=== PATIENT | male | born 1950 | race Caucasian/White ===

== ENCOUNTER → 2019-11-08 11:05 | Outpatient (CLI) | payer MEDICARE, MEDICAID, SELFPAY ==
[2019-11-08 12:16] LABS: Add Manual Diff / Slide Review NO; Basophils Absolute Auto 100 /uL (0-100); Basophils Percent Auto 0.9 % (0-2); Eosinophils Absolute Auto 400 /uL (0-450); Eosinophils Percent Auto 6.1 % (2-4); Hematocrit 38.9 % (41-53); Hemoglobin 14.1 g/dL (13.5-17.5); Lymphocytes Absolute Auto 900 /uL (1100-4500); Lymphocytes Percent Auto 14.6 % (25-40); Mean Corpuscular HGB Conc 36.4 % (30-36); Mean Corpuscular Hemoglobin 31.8 PG (26-34); Mean Corpuscular Volume 87.5 fL (80-100); Monocytes Absolute Auto 600 /uL (0-900); Monocytes Percent Auto 10.2 % (3-14); Neutrophils Absolute Auto 4100 /uL (1500-7000); Neutrophils Percent Auto 68.2 % (50-75); Platelet Count 161 X10^3/uL (150-400); Red Blood Cell Count 4.45 X10^6/uL (4.5-5.9); Red Cell Distribution Width 12.9 % (11.6-14.8)
[2019-11-08 12:29] LABS: Hemoglobin A1C% w Est Avg Glu 4.9 % (4.0-6.0)
[2019-11-08 12:42] LABS: Alanine Aminotransferase 42 IU/L (<50); Albumin 4.6 g/dL (3.5-5.0); Albumin Globulin Ratio 1.9 (1.0-2.8); Alkaline Phosphatase 45 U/L (38-126); Aspartate Aminotransferase 48 IU/L (17-59); BUN Creatinine Ratio 23.5 (6-22); Bilirubin Total 0.8 mg/dL (0.2-1.3); Blood Urea Nitrogen 20 mg/dL (9-20); Calcium 9.9 mg/dL (8.4-10.2); Carbon Dioxide 28 mmol/L (22-32); Chloride 101 mmol/L (98-107); Cholesterol 126 mg/dL (140-199); Estimated Glomerular Filt Rate > 60.0 mL/min (>60); Globulin 2.4 g/dL (1.7-4.1); Glucose 121 mg/dL (80-110); HDL Cholesterol 45 mg/dL (40-60); HEMOLYSIS < 15 (0-50); LDL Cholesterol Calculated 71 mg/dL (<100); Potassium 4.4 mmol/L (3.4-5.1); Sodium 136 mmol/L (137-145); Triglycerides 48 mg/dL (35-150)
[2019-11-08 12:51] LABS: Vitamin D 25 Hydroxy (D3) 69.6 ng/mL (30.0-100.0)
[2019-11-08 13:14] LABS: Prostate Specific Antigen Scrn 0.149 ng/mL (0.1-4.0)
== END ==
PROVIDERS: Referring Provider Family Medicine; Visit Provider Family Medicine
DX: E11.9 Type 2 diabetes mellitus without complications (principal); E55.9 Vitamin D deficiency, unspecified; E78.5 Hyperlipidemia, unspecified; I10 Essential (primary) hypertension; N28.9 Disorder of kidney and ureter, unspecified; N40.0 Benign prostatic hyperplasia without lower urinary tract symptoms; Z12.5 Encounter for screening for malignant neoplasm of prostate
CPT/HCPCS: 36415; 80053; 80061; 82306; 83036; 85025; G0103

== ENCOUNTER → 2020-05-08 09:57 | Outpatient (CLI) | payer MEDICARE, MEDICAID, SELFPAY ==
[2020-05-08 10:43] LABS: Add Manual Diff / Slide Review NO; Basophils Absolute Auto 0 /uL (0-100); Basophils Percent Auto 0.7 % (0-2); Eosinophils Absolute Auto 300 /uL (0-450); Eosinophils Percent Auto 4.6 % (2-4); Hematocrit 39.9 % (41-53); Lymphocytes Absolute Auto 900 /uL (1100-4500); Lymphocytes Percent Auto 13.9 % (25-40); Mean Corpuscular HGB Conc 35.1 % (30-36); Mean Corpuscular Volume 88.2 fL (80-100); Monocytes Absolute Auto 700 /uL (0-900); Monocytes Percent Auto 11.4 % (3-14); Neutrophils Absolute Auto 4500 /uL (1500-7000); Neutrophils Percent Auto 69.4 % (50-75); Platelet Count 163 X10^3/uL (150-400); Red Blood Cell Count 4.53 X10^6/uL (4.5-5.9); Red Cell Distribution Width 13.3 % (11.6-14.8); White Blood Cell Count 6.5 X10^3/uL (4.5-11.0)
[2020-05-08 11:06] LABS: Hemoglobin A1C% w Est Avg Glu 4.9 % (4.0-6.0)
[2020-05-08 11:08] LABS: Alanine Aminotransferase 55 IU/L (<50); Albumin 4.6 g/dL (3.5-5.0); Albumin Globulin Ratio 1.7 (1.0-2.8); Alkaline Phosphatase 46 U/L (38-126); Aspartate Aminotransferase 57 IU/L (17-59); BUN Creatinine Ratio 26.4 (6-22); Bilirubin Total 0.7 mg/dL (0.2-1.3); Blood Urea Nitrogen 24 mg/dL (9-20); Calcium 9.8 mg/dL (8.4-10.2); Carbon Dioxide 30 mmol/L (22-32); Chloride 99 mmol/L (98-107); Cholesterol 130 mg/dL (140-199); Estimated Glomerular Filt Rate > 60.0 mL/min (>60); Globulin 2.7 g/dL (1.7-4.1); Glucose 130 mg/dL (80-110); HDL Cholesterol 47 mg/dL (40-60); HEMOLYSIS < 15 (0-50); LDL Cholesterol Calculated 73 mg/dL (<100); Potassium 4.6 mmol/L (3.4-5.1); Sodium 136 mmol/L (137-145); Total Protein 7.3 g/dL (6.3-8.2); Triglycerides 48 mg/dL (35-150)
[2020-05-08 11:09] LABS: Creatinine Urine Random 48.7 mg/dL
[2020-05-08 11:16] LABS: Microalbumin Urine Random < 0.6 mg/dL (0-1.6)
[2020-05-08 11:25] LABS: Vitamin D 25 Hydroxy (D3) 56.3 ng/mL (30.0-100.0)
== END ==
PROVIDERS: PCP Family Medicine; Referring Provider Family Medicine; Visit Provider Family Medicine
DX: E55.9 Vitamin D deficiency, unspecified (principal); E11.9 Type 2 diabetes mellitus without complications; E78.5 Hyperlipidemia, unspecified; I10 Essential (primary) hypertension; N28.9 Disorder of kidney and ureter, unspecified
CPT/HCPCS: 36415; 80053; 80061; 82043; 82306; 82570; 83036; 85025

== ENCOUNTER → 2020-06-22 14:32 | Outpatient (CLI) | payer MEDICARE, SELFPAY ==
[2020-06-22] MEDS: COVID-19 VACC #1, MRNA(MOD) 100 MCG/0.5 ML VIAL IM (14:49)
== END ==
PROVIDERS: PCP Family Medicine; Visit Provider Internal Medicine
DX: Z23 Encounter for immunization (principal)
CPT/HCPCS: 0011A; 91301

== ENCOUNTER → 2020-07-20 13:06 | Outpatient (CLI) | payer MEDICARE, SELFPAY ==
[2020-07-20] MEDS: COVID-19 VACC #2, MRNA(MOD) 100 MCG/0.5 ML VIAL IM (13:10)
== END ==
PROVIDERS: PCP Family Medicine; Visit Provider Internal Medicine
DX: Z23 Encounter for immunization (principal)
CPT/HCPCS: 0012A; 91301

== ENCOUNTER → 2021-03-29 14:07 | Outpatient (CLI) | payer MEDICARE, SELFPAY ==
[2021-03-29] MEDS: COVID-19 VACC #3, MRNA(MOD) 50 MCG/0.25 ML VIAL IM (14:12)
== END ==
PROVIDERS: PCP Family Medicine; Visit Provider Internal Medicine
DX: Z23 Encounter for immunization (principal)
CPT/HCPCS: 0013A; 91301

== ENCOUNTER → 2021-05-08 08:59 | Outpatient (CLI) | payer OTHER, SELFPAY ==
[2021-05-08 10:11] LABS: Add Manual Diff / Slide Review NO; Basophils Absolute Auto 0 /uL (0-100); Basophils Percent Auto 0.8 % (0-2); Eosinophils Absolute Auto 200 /uL (0-450); Eosinophils Percent Auto 4.4 % (2-4); Hematocrit 39.3 % (41-53); Hemoglobin 14.1 g/dL (13.5-17.5); Lymphocytes Absolute Auto 1000 /uL (1100-4500); Lymphocytes Percent Auto 18.7 % (25-40); Mean Corpuscular HGB Conc 35.8 % (30-36); Mean Corpuscular Hemoglobin 31.4 PG (26-34); Mean Corpuscular Volume 87.6 fL (80-100); Monocytes Absolute Auto 700 /uL (0-900); Monocytes Percent Auto 12.1 % (3-14); Neutrophils Absolute Auto 3400 /uL (1500-7000); Platelet Count 154 X10^3/uL (150-400); Red Blood Cell Count 4.49 X10^6/uL (4.5-5.9); Red Cell Distribution Width 13.3 % (11.6-14.8); White Blood Cell Count 5.4 X10^3/uL (4.5-11.0)
[2021-05-08 10:35] LABS: Hemoglobin A1C% w Est Avg Glu 4.7 % (4.0-6.0)
[2021-05-08 10:37] LABS: Alanine Aminotransferase 57 IU/L (<50); Albumin 4.5 g/dL (3.5-5.0); Alkaline Phosphatase 41 U/L (38-126); Aspartate Aminotransferase 49 IU/L (17-59); Bilirubin Total 0.7 mg/dL (0.2-1.3); Blood Urea Nitrogen 20 mg/dL (9-20); Carbon Dioxide 28 mmol/L (22-32); Chloride 98 mmol/L (98-107); Cholesterol 129 mg/dL (140-199); Estimated Glomerular Filt Rate > 60.0 mL/min (>60); Globulin 2.2 g/dL (1.7-4.1); Glucose 135 mg/dL (80-110); HDL Cholesterol 63 mg/dL (40-60); HEMOLYSIS < 15 (0-50); LDL Cholesterol Calculated 57 mg/dL (<100); Sodium 132 mmol/L (137-145); Total Protein 6.7 g/dL (6.3-8.2); Triglycerides 47 mg/dL (35-150)
[2021-05-08 11:03] LABS: TSH w/ Reflex to FT4 6.19 uIU/mL (0.47-4.68)
[2021-05-08 11:04] LABS: Prostate Specific Antigen 0.118 ng/mL (0.10-4.00)
[2021-05-08 11:39] LABS: Free T4, Direct Thyroxine 0.89 ng/dL (0.78-2.19)
== END ==
PROVIDERS: PCP Family Medicine; Referring Provider Family Medicine; Visit Provider Family Medicine
DX: E11.9 Type 2 diabetes mellitus without complications (principal); N40.0 Benign prostatic hyperplasia without lower urinary tract symptoms; I10 Essential (primary) hypertension; E78.5 Hyperlipidemia, unspecified; N28.9 Disorder of kidney and ureter, unspecified
CPT/HCPCS: 36415; 80053; 80061; 83036; 84153; 84439; 84443; 85025

== ENCOUNTER → 2021-05-27 13:19 | Outpatient (CLI) | payer MEDICARE, SELFPAY ==
[2021-05-27 15:47] LABS: Free T3, Triiodothyronine Free 3.26 pg/mL (2.77-5.27)
[2021-05-27 16:00] LABS: Thyroid Stimulating Hormone 5.39 uIU/mL (0.47-4.68)
[2021-05-28 23:36] LABS: Anti Thyroglobulin Antibody <1.0 IU/mL (0.0-0.9); Thyroid Peroxidase Antibodies <8 IU/mL (0-34)
== END ==
PROVIDERS: PCP Family Medicine; Referring Provider Family Medicine; Visit Provider Family Medicine
DX: I10 Essential (primary) hypertension (principal); R79.89 Other specified abnormal findings of blood chemistry
CPT/HCPCS: 36415; 84439; 84443; 84481; 86376; 86800

== ENCOUNTER → 2022-01-22 10:55 | Outpatient (CLI) | payer MEDICARE, SELFPAY ==
[2022-01-22 13:23] LABS: COVID19 -Nasal RAPID Negative (Negative)
== END ==
PROVIDERS: PCP Family Medicine; Visit Provider Surgery
DX: Z01.812 Encounter for preprocedural laboratory examination (principal); Z20.822 Contact with and (suspected) exposure to COVID-19
CPT/HCPCS: 87635; C9803

== ENCOUNTER 2022-01-23 06:40 | Day surgery (SDC) | payer MEDICARE, SELFPAY ==
--- NOTE | 2022-01-23 | PATH_ITS ---
[facility] Accession Number: [id number] . 01 Material submitted: . PART A: colon - TRANSVERSE COLON POLYP PART B: rectum - RECTAL POLYP . 01 Clinical history: . COLONOSCOPY . 01 Diagnosis: A. Transverse Colon, Polyp, Biopsy: Inflammatory polyp. Additional levels were examined. Negative for dysplasia and malignancy. . B. Rectum, Polyp, Biopsy: Hyperplastic polyp with features of mucosal prolapse. MRV 01/29/2022 1656 Local . 01 Electronically signed: . Felecia Craft MD, Pathologist NPI- [id number] . 01 Gross description: . Part A: TRANSVERSE COLON POLYP: Received in formalin is 1 fragment(s) of morillo, soft tissue measuring 0.4 x 0.3 x 0.2 cm submitted entirely in 1 cassette(s) Part B: RECTAL POLYP: Received in formalin is 1 fragment(s) of morillo, soft tissue measuring 0.4 x 0.2 x 0.1 cm submitted entirely in 1 cassette(s) /DANIEL 01/23/2022 2327 Local . 01 Pathologist provided ICD-10: K63.5 . 01 CPT . 064099, 256293 Specimen Comment: A courtesy copy of this report has been sent to [phone] Performed at: 01 [facility] [address] [place] [address] [address], [place], [place] [id number] MD Grady Connor MD Phone: [phone]
[2022-01-23 07:17] VITALS: BP 140/77; PULSE 56; RESP 15; TEMP 36; O2SAT 99; BMI 24.5
[2022-01-23] MEDS: LACTATED RINGERS 1,000 ML 42 ML IV (07:35)
--- NOTE | 2022-01-23 07:57 | P.HP_ITS ---
History of Present Illness History of Present Illness Date Patient Seen: 01/23/22 Time Patient Seen: 07:57 Chief complaint: Colonoscopy Narrative: Yordan is a 71-year-old man who had a colonoscopy in 2017 at [facility] that uncovered 2 small polyps. He has no known family history of colon cancer. Patient History Medical History (Updated 01/23/22 @ 07:58 by Claudy Baires MD) BPH (benign prostatic hyperplasia) Breakdown (mechanical) of other cardiac and vascular devices and implants, initial encounter Diabetes mellitus (~2016) Elevated TSH Hemorrhoid Hyperlipidemia Hypertension Kidney disease Measles (~1956) Multiple actinic keratoses Stroke (~2016) Substance abuse (~1967) Vitamin D deficiency Surgical History Anesthesia History of ankle surgery (~1993) History of hernia repair (~2005) S/P LASIK surgery (~1997) Family & Social History Family History Father Hypertension Stroke Mother Kidney disease Brother Kidney disease Social History: household members spouse Tobacco & Substance use: Smoking Status Former smoker alcohol intake former Substance Use Type does not use Meds Home Medications and Allergies Home Medications Medication Instructions Recorded Confirmed Type aspirin 81 mg tablet,delayed 81 mg PO DAILY 11/08/19 01/23/22 History release (Adult Aspirin Regimen) BD Single Use Swab #100 ea 10/09/20 05/31/21 Rx [employer] True Metrix Air Meter #1 ea 10/09/20 05/31/21 Rx lancets 33 gauge (OneTouch Delica #400 ea 07/16/21 Rx Plus Lancet) blood sugar diagnostic (Resale TherapyTouch #120 ea 07/19/21 Rx Verio test strips) blood-glucose meter (Resale TherapyTouch #1 kit 09/19/21 Rx Verio Flex Meter) atorvastatin 40 mg tablet 40 mg PO DAILY #90 tabs 11/05/21 01/23/22 Rx finasteride 5 mg tablet 5 mg PO DAILY #90 tabs 11/05/21 01/23/22 Rx hydrochlorothiazide 12.5 mg capsule 12.5 mg PO DAILY #90 caps 11/05/21 01/23/22 Rx labetalol 200 mg tablet 200 mg PO BID #180 tabs 06/14/22 09/01/22 Rx losartan 100 mg tablet 100 mg PO DAILY #90 tabs 11/05/21 01/23/22 Rx metformin 500 mg tablet,extended 500 mg PO BID #180 tabs 11/05/21 11/05/21 Rx release 24 hr tamsulosin 0.4 mg capsule 0.8 mg PO DAILY #180 caps 11/05/21 01/23/22 Rx terazosin 2 mg capsule 2 mg PO DAILY #90 caps 11/05/21 01/23/22 Rx test strips #400 ea 11/05/21 11/05/21 Rx peg 3350-electrolytes 236 240 ml PO Q10M #4,000 mL 01/01/22 Rx gram-22.74 gram-6.74 gram-5.86 gram solution (Golytely) Allergies Allergy/AdvReac Type Severity Reaction Status Date / Time No Known Drug Allergies Allergy Verified 01/23/22 07:27 Exam Vital Signs (past 8 hours): - 01/23/22 07:17 Temperature 96.8 F L Pulse Rate 56 L Respiratory Rate 15 Blood Pressure 140/77 Pulse Oximetry 99 Oxygen Delivery Method Room Air Oxygen Delivery Method Room Air Const General: No acute distress Resp Effort & Inspection: normal respiratory effort Assessment & Plan Assessment and plan (1) Personal history of colonic polyps: Status: Acute Plan 71-year-old man here for colonoscopy due to history of colon polyps. We reviewed the risks and benefits and he would like to proceed. Time Spent With Patient Critical Care time: I spent a total of [] minutes of critical care time on this patient's care today; this time is exclusive of procedural time.
[2022-01-23] MEDS: MIDAZOLAM 5 MG/5 ML VIAL 8 MG IV (08:08)
[2022-01-23] MEDS: fentaNYL 100 MCG/2 ML INJ 125 MCG IV (08:08)
--- NOTE | 2022-01-23 08:40 | PM.OP.COLON ---
Operative Date/Time/Diagnoses Date of procedure: 01/23/22 Time of procedure: 08:40 Pre-op diagnosis: Colon cancer screening Post-op diagnosis: same Procedure & Clinicians Study performed: Colonoscopy Same procedure as scheduled: Yes Surgeon: Claudy Baires Procedure Notes Procedure in detail: Surgeon: Claudy Baires MD Procedure: The patient was brought to the endoscopy suite, placed in left lateral decubitus position. The patient was connected to monitoring devices. A time-out was performed. Sedation was administered. Once the patient was adequately sedated, a digital rectal exam was performed and was normal. The scope was then inserted and advanced to the cecum where the appendiceal orifice was identified and photographed. The terminal ileum was intubated and no abnormalities noted. The scope was then slowly withdrawn over greater than 6 minutes. The mucosa was thoroughly inspected. There was a 4 mm polyp in the transverse colon removed with a cold forceps. There was extensive pandiverticulosis greatest in the sigmoid colon. There was a 4 mm polyp in the proximal rectum removed with a cold forceps. The scope was retroflexed in the rectum. No abnormality was noted. The scope was straightened and removed. The patient was awakened and brought to recovery. Versed: 8 mg Fentanyl: 125 mcg EBL: 5 mL Findings: 4 mm polyp in the transverse colon, 4 mm polyp in the proximal rectum and extensive pandiverticulosis greatest in the sigmoid colon Scope withdrawal time: 16 Sedation minutes: 34 Post-procedure Recommendations: Will call with biopsy results Disposition: PACU
[2022-01-23 08:45] VITALS: BP 106/59; PULSE 52; RESP 15; TEMP 36; O2SAT 98
[2022-01-23 08:50] VITALS: BP 100/63; PULSE 53; RESP 16; O2SAT 100
[2022-01-23 08:55] VITALS: BP 118/70; PULSE 63; RESP 11; O2SAT 99
--- NOTE | 2022-01-23 08:56 | SUR.PHASEI ---
Discharge instructions reviewed with pt and he verbalized understanding.
[2022-01-23 09:00] VITALS: BP 112/63; PULSE 56; RESP 14; O2SAT 99
[2022-01-23 09:01] VITALS: BP 104/58; PULSE 53; RESP 15; O2SAT 99
== END 2022-01-23 09:10 | disposition home or self-care (01) ==
PROVIDERS: PCP Family Medicine; Referring Provider Surgery; Visit Provider Surgery
PROC: 0DJD8ZZ Inspection of Lower Intestinal Tract, Via Natural or Artificial Opening Endoscopic (ICD-10-PCS; CPT 45378; principal; 2022-01-23 07:45)
DX: Z12.11 Encounter for screening for malignant neoplasm of colon (principal); Z86.010 Personal history of colon polyps; K57.30 Diverticulosis of large intestine without perforation or abscess without bleeding; E11.9 Type 2 diabetes mellitus without complications; N40.0 Benign prostatic hyperplasia without lower urinary tract symptoms; E78.5 Hyperlipidemia, unspecified; I10 Essential (primary) hypertension; Z87.891 Personal history of nicotine dependence; K51.40 Inflammatory polyps of colon without complications; K62.1 Rectal polyp
CPT/HCPCS: 45380; 99152; 99153; J2250; J3010

== ENCOUNTER → 2022-04-30 07:20 | Outpatient (CLI) | payer MEDICARE, SELFPAY ==
[2022-04-30 08:43] LABS: Add Manual Diff / Slide Review NO; Basophils Absolute Auto 0 /uL (0-100); Basophils Percent Auto 0.6 % (0-2); Eosinophils Absolute Auto 300 /uL (0-450); Eosinophils Percent Auto 5.4 % (2-4); Hematocrit 37.8 % (41-53); Hemoglobin 13.7 g/dL (13.5-17.5); Lymphocytes Absolute Auto 1000 /uL (1100-4500); Lymphocytes Percent Auto 18.8 % (25-40); Mean Corpuscular HGB Conc 36.2 % (30-36); Mean Corpuscular Hemoglobin 31.7 PG (26-34); Mean Corpuscular Volume 87.5 fL (80-100); Monocytes Absolute Auto 600 /uL (0-900); Monocytes Percent Auto 11.5 % (3-14); Neutrophils Absolute Auto 3400 /uL (1500-7000); Neutrophils Percent Auto 63.7 % (50-75); Platelet Count 144 X10^3/uL (150-400); Red Blood Cell Count 4.32 X10^6/uL (4.5-5.9); Red Cell Distribution Width 13.2 % (11.6-14.8); White Blood Cell Count 5.3 X10^3/uL (4.5-11.0)
[2022-04-30 20:07] LABS: Free T3, Triiodothyronine Free 2.89 pg/mL (2.77-5.27); Free T4, Direct Thyroxine 0.96 ng/dL (0.78-2.19)
[2022-04-30 20:20] LABS: Thyroid Stimulating Hormone 6.79 uIU/mL (0.47-4.68)
[2022-04-30 23:14] LABS: Alanine Aminotransferase 42 IU/L (<50); Albumin 4.1 g/dL (3.5-5.0); Albumin Globulin Ratio 1.8 (1.0-2.8); Alkaline Phosphatase 56 U/L (38-126); Aspartate Aminotransferase 40 IU/L (17-59); BUN Creatinine Ratio 28.9 (6-22); Bilirubin Total 0.6 mg/dL (0.2-1.3); Blood Urea Nitrogen 24 mg/dL (9-20); Calcium 8.8 mg/dL (8.4-10.2); Carbon Dioxide 27 mmol/L (22-32); Chloride 98 mmol/L (98-107); Cholesterol 120 mg/dL (140-199); Estimated Glomerular Filt Rate > 60 mL/min (>60); Globulin 2.3 g/dL (1.7-4.1); Glucose 120 mg/dL (80-110); HDL Cholesterol 53 mg/dL (40-60); HEMOLYSIS < 15 (0-50); LDL Cholesterol Calculated 57 mg/dL (<100); Sodium 132 mmol/L (137-145); Total Protein 6.4 g/dL (6.3-8.2); Triglycerides 49 mg/dL (35-150)
[2022-04-30 23:43] LABS: Prostate Specific Antigen Scrn 0.105 ng/mL (0.1-4.0)
== END ==
PROVIDERS: PCP Family Medicine; Referring Provider Family Medicine; Visit Provider Family Medicine
DX: E11.9 Type 2 diabetes mellitus without complications (principal); Z12.5 Encounter for screening for malignant neoplasm of prostate; E78.5 Hyperlipidemia, unspecified; I10 Essential (primary) hypertension; N40.1 Benign prostatic hyperplasia with lower urinary tract symptoms; R79.89 Other specified abnormal findings of blood chemistry
CPT/HCPCS: 36415; 80053; 80061; 83036; 84439; 84443; 84481; 85025; G0103

== ENCOUNTER → 2022-07-05 09:10 | Outpatient (CLI) | payer MEDICARE, SELFPAY ==
[2022-07-05 12:29] LABS: TSH w/ Reflex to FT4 3.22 uIU/mL (0.47-4.68)
== END ==
PROVIDERS: PCP Family Medicine; Referring Provider Family Medicine; Visit Provider Family Medicine
DX: E03.9 Hypothyroidism, unspecified (principal); R79.89 Other specified abnormal findings of blood chemistry
CPT/HCPCS: 36415; 84443

== ENCOUNTER → 2022-10-30 06:47 | Outpatient (CLI) | payer MEDICARE, SELFPAY ==
[2022-10-30 08:15] LABS: Add Manual Diff / Slide Review NO; Basophils Absolute Auto 100 /uL (0-100); Basophils Percent Auto 0.9 % (0-2); Eosinophils Absolute Auto 400 /uL (0-450); Eosinophils Percent Auto 6.3 % (2-4); Hematocrit 39.3 % (41-53); Lymphocytes Absolute Auto 1100 /uL (1100-4500); Lymphocytes Percent Auto 18.6 % (25-40); Mean Corpuscular HGB Conc 35.5 % (30-36); Mean Corpuscular Hemoglobin 31.4 PG (26-34); Mean Corpuscular Volume 88.4 fL (80-100); Monocytes Absolute Auto 700 /uL (0-900); Monocytes Percent Auto 13.1 % (3-14); Neutrophils Absolute Auto 3500 /uL (1500-7000); Neutrophils Percent Auto 61.1 % (50-75); Platelet Count 157 X10^3/uL (150-400); Red Blood Cell Count 4.44 X10^6/uL (4.5-5.9); Red Cell Distribution Width 13.1 % (11.6-14.8); White Blood Cell Count 5.7 X10^3/uL (4.5-11.0)
[2022-10-30 08:56] LABS: Alanine Aminotransferase 44 IU/L (<50); Albumin Globulin Ratio 1.7 (1.0-2.8); Alkaline Phosphatase 64 U/L (38-126); Aspartate Aminotransferase 38 IU/L (17-59); BUN Creatinine Ratio 24.4 (6-22); Bilirubin Total 0.5 mg/dL (0.2-1.3); Blood Urea Nitrogen 19 mg/dL (9-20); Calcium 8.7 mg/dL (8.4-10.2); Carbon Dioxide 28 mmol/L (22-32); Chloride 99 mmol/L (98-107); Cholesterol 128 mg/dL (140-199); Estimated Glomerular Filt Rate > 60 mL/min (>60); Globulin 2.3 g/dL (1.7-4.1); Glucose 111 mg/dL (80-110); HDL Cholesterol 53 mg/dL (40-60); HEMOLYSIS < 15 (0-50); LDL Cholesterol Calculated 65 mg/dL (<100); Potassium 4.1 mmol/L (3.4-5.1); Sodium 133 mmol/L (137-145); Total Protein 6.3 g/dL (6.3-8.2); Triglycerides 52 mg/dL (35-150)
[2022-10-30 09:52] LABS: Free T4, Direct Thyroxine 1.06 ng/dL (0.78-2.19)
[2022-10-31 08:44] LABS: x Labcorp Estim. Avg Glu (eAG) 100 mg/dL (.); x Labcorp Hemoglobin A1c 5.1 % (4.8-5.6)
== END ==
PROVIDERS: PCP Family Medicine; Referring Provider Family Medicine; Visit Provider Family Medicine
DX: E03.9 Hypothyroidism, unspecified (principal); E78.5 Hyperlipidemia, unspecified; I10 Essential (primary) hypertension; N28.9 Disorder of kidney and ureter, unspecified; N40.1 Benign prostatic hyperplasia with lower urinary tract symptoms; E11.9 Type 2 diabetes mellitus without complications
CPT/HCPCS: 36415; 80053; 80061; 83036; 84439; 84443; 85025

== ENCOUNTER → 2022-12-16 09:27 | Outpatient (CLI) | payer MEDICARE, SELFPAY ==
[2022-12-16 10:45] LABS: Creatinine Urine Random 39.9 mg/dL
[2022-12-16 10:53] LABS: Microalbumin Urine Random 0.8 mg/dL (0-1.6)
[2022-12-16 11:03] LABS: TSH w/ Reflex to FT4 3.09 uIU/mL (0.47-4.68)
== END ==
PROVIDERS: PCP Family Medicine; Referring Provider Family Medicine; Visit Provider Family Medicine
DX: E03.9 Hypothyroidism, unspecified (principal); E11.9 Type 2 diabetes mellitus without complications; I10 Essential (primary) hypertension
CPT/HCPCS: 36415; 82043; 82570; 84443

== ENCOUNTER → 2023-04-23 06:54 | Outpatient (CLI) | payer MEDICARE, SELFPAY ==
[2023-04-23 08:16] LABS: Add Manual Diff / Slide Review NO; Basophils Absolute Auto 100 /uL (0-100); Basophils Percent Auto 0.8 % (0-2); Eosinophils Absolute Auto 500 /uL (0-450); Hematocrit 36.6 % (41-53); Hemoglobin 13.2 g/dL (13.5-17.5); Lymphocytes Absolute Auto 800 /uL (1100-4500); Lymphocytes Percent Auto 12.3 % (25-40); Mean Corpuscular HGB Conc 35.9 % (30-36); Mean Corpuscular Hemoglobin 31.8 PG (26-34); Mean Corpuscular Volume 88.5 fL (80-100); Monocytes Absolute Auto 1000 /uL (0-900); Monocytes Percent Auto 15.3 % (3-14); Neutrophils Absolute Auto 4400 /uL (1500-7000); Neutrophils Percent Auto 64.6 % (50-75); Platelet Count 174 X10^3/uL (150-400); Red Blood Cell Count 4.14 X10^6/uL (4.5-5.9); Red Cell Distribution Width 13.2 % (11.6-14.8); White Blood Cell Count 6.7 X10^3/uL (4.5-11.0)
[2023-04-23 08:36] LABS: Alanine Aminotransferase 41 IU/L (<50); Albumin Globulin Ratio 1.6 (1.0-2.8); Alkaline Phosphatase 71 U/L (38-126); Aspartate Aminotransferase 44 IU/L (17-59); BUN Creatinine Ratio 23.5 (6-22); Bilirubin Total 0.9 mg/dL (0.2-1.3); Blood Urea Nitrogen 19 mg/dL (9-20); Calcium 9.4 mg/dL (8.4-10.2); Carbon Dioxide 24 mmol/L (22-32); Chloride 100 mmol/L (98-107); Cholesterol 111 mg/dL (140-199); Estimated Glomerular Filt Rate > 60 mL/min (>60); Globulin 2.5 g/dL (1.7-4.1); Glucose 115 mg/dL (80-110); HDL Cholesterol 47 mg/dL (40-60); HEMOLYSIS < 15 (0-50); LDL Cholesterol Calculated 50 mg/dL (<100); Potassium 4.3 mmol/L (3.4-5.1); Sodium 132 mmol/L (137-145); Total Protein 6.5 g/dL (6.3-8.2); Triglycerides 71 mg/dL (35-150)
[2023-04-23 09:03] LABS: Prostate Specific Antigen Scrn 0.124 ng/mL (0.1-4.0)
== END ==
PROVIDERS: PCP Family Medicine; Referring Provider Family Medicine; Visit Provider Family Medicine
DX: Z12.5 Encounter for screening for malignant neoplasm of prostate (principal); E03.9 Hypothyroidism, unspecified; E11.9 Type 2 diabetes mellitus without complications; L30.9 Dermatitis, unspecified; I10 Essential (primary) hypertension; N40.0 Benign prostatic hyperplasia without lower urinary tract symptoms; E78.5 Hyperlipidemia, unspecified
CPT/HCPCS: 36415; 80053; 80061; 83036; 85025; G0103

== ENCOUNTER → 2023-05-12 07:45 | Outpatient (CLI) | payer MEDICARE, SELFPAY ==
--- NOTE | 2023-05-12 07:46 | DI.US.S_ITS ---
PROCEDURE: US ABD AORTA ANEURYSM SCREEN INDICATIONS: screening TECHNIQUE: Real time scanning was performed of the aorta and iliac arteries, with image documentation. COMPARISON: None. FINDINGS: Aorta: Proximal aorta is not visualized due to bowel gas. Mid-aorta measures 2.0 cm. Distal aortic diameter is 1.3 cm. Iliac arteries: Right common iliac artery measures 1.1 cm. Left common iliac artery measures 1.0 cm. IMPRESSION: No ectasia or aneurysm of the abdominal aorta or iliac arteries where visualized. Dictated by: Annette Mccurdy M.D. on 05/12/2023 at 8:52 Approved by: Annette Mccurdy M.D. on 05/12/2023 at 8:53
== END ==
PROVIDERS: PCP Family Medicine; Referring Provider Family Medicine; Visit Provider Family Medicine
DX: Z13.6 Encounter for screening for cardiovascular disorders (principal); Z87.891 Personal history of nicotine dependence; Z86.73 Personal history of transient ischemic attack (TIA), and cerebral infarction without residual deficits
CPT/HCPCS: 76706

== ENCOUNTER → 2023-05-31 11:06 | Outpatient (CLI) | payer OTHER, SELFPAY ==
--- NOTE | 2023-05-31 11:08 | DI.RAD.S_ITS ---
PROCEDURE: XR CHEST 2V INDICATIONS: Shortness of breath TECHNIQUE: 2 views of the chest were acquired. COMPARISON: None. FINDINGS: Surgical changes and devices: None. Lungs and pleura: Low lung volumes are noted. This causes a crowded appearance to the lung markings and limits evaluation. Generalized interstitial prominence can be seen. No pneumothorax or large pleural effusion can be seen. Mediastinum: Mediastinal contours are normal. Heart size is mildly enlarged. Bones and chest wall: No suspicious bony abnormalities. Age-appropriate bony degenerative changes are seen. Soft tissues appear unremarkable. IMPRESSION: Low lung volumes with abnormal interstitial prominence. Please consider pulmonary edema versus atypical infection (including COVID pneumonia). Dictated by: Obi Ochoa M.D. on 05/31/2023 at 10:54 Approved by: Obi Ochoa M.D. on 05/31/2023 at 10:55
== END ==
PROVIDERS: PCP Family Medicine; Referring Provider Registered Nurse; Visit Provider Registered Nurse
DX: R06.02 Shortness of breath (principal)
CPT/HCPCS: 71046

== ENCOUNTER → 2023-06-11 12:05 | Outpatient (CLI) | payer OTHER, SELFPAY ==
[2023-06-11 15:04] LABS: Influenza A - CEPHEID Flu A NEGATIVE (NEGATIVE); Influenza B - CEPHEID Flu B NEGATIVE (NEGATIVE); Respiratory Syncytial Virus Negative (Negative)
[2023-06-11 15:10] LABS: COVID-19 CEPHEID 4-PLEX PCR Negative (Negative)
== END ==
PROVIDERS: PCP Family Medicine; Visit Provider Physician Assistant
DX: J06.9 Acute upper respiratory infection, unspecified (principal); R05.1 Acute cough
CPT/HCPCS: 0241U

== ENCOUNTER → 2023-06-11 12:44 | Outpatient (CLI) | payer OTHER, SELFPAY ==
--- NOTE | 2023-06-11 12:47 | DI.RAD.S_ITS ---
PROCEDURE: XR CHEST 2V INDICATIONS: cough x 1 mo TECHNIQUE: 2 views of the chest were acquired. COMPARISON: [facility], CR, XR CHEST 2V, 05/31/2023, 11:21. FINDINGS: Surgical changes and devices: None. Lungs and pleura: Stable diffuse airspace opacities. Mediastinum: Mediastinal contours are normal. Heart size is normal. Bones and chest wall: No suspicious bony abnormalities. Soft tissues appear unremarkable. IMPRESSION: Stable diffuse airspace opacities, raising concern for severe interstitial lung disease, less likely organizing pneumonia or severe pulmonary edema. Consider high-resolution chest CT for further characterization. Dictated by: Eddie Jean Baptiste M.D. on 06/11/2023 at 13:15 Approved by: Eddie Jean Baptiste M.D. on 06/11/2023 at 13:16
== END ==
PROVIDERS: PCP Family Medicine; Referring Provider Physician Assistant; Visit Provider Physician Assistant
DX: J06.9 Acute upper respiratory infection, unspecified (principal); R05.1 Acute cough
CPT/HCPCS: 0241U; 71046

== ENCOUNTER → 2023-06-17 07:51 | Outpatient (CLI) | payer OTHER, SELFPAY ==
[2023-06-17 08:23] LABS: Estimated Glomerular Filt Rate > 60 mL/min (>60)
--- NOTE | 2023-06-17 08:32 | DI.CT.S_ITS ---
PROCEDURE: CT CHEST W CON INDICATIONS: chronic cough TECHNIQUE: After the administration of intravenous contrast, 5 mm thick sections acquired from the pulmonary apices to the posterior costophrenic angles. 1 mm axial lung, 5 mm thick coronal and sagittal reformats and 7 mm axial MIP were acquired. For radiation dose reduction, the following was used: automated exposure control, adjustment of mA and/or kV according to patient size. COMPARISON: None. FINDINGS: Image quality: Diagnostic. Lower Neck: No enlarged lymph nodes. Thyroid: No thyroid nodules which require sonographic follow up, per consensus guidelines. Axillae: No enlarged lymph nodes. Chest Wall: Unremarkable. Bones: Unremarkable. Lungs and Pleura: No pneumothorax or pleural effusions. Diffuse reticulation, with basilar predominance. There is honeycombing present and traction bronchiectasis. No ground-glass. Heart: Heart size is enlarged. No pericardial effusion. Thoracic Vessels: Dilated main pulmonary artery Mediastinum and Sammi: Prominent mediastinal lymph nodes, presumably reactive. Esophagus: Diffuse esophageal wall thickening. No hiatal hernia. Upper Abdomen: Visualized upper abdomen solid organs and bowel loops appear normal. IMPRESSION: Severe interstitial lung disease, CT pattern consistent with UIP. Recommend pulmonology referral. Dilated pulmonary artery, indicating pulmonary hypertension. Reactive mediastinal lymph nodes also present. Diffuse esophageal wall thickening, suggestive of esophagitis. Correlate with symptoms. Dictated by: Eddie Jean Baptiste M.D. on 06/17/2023 at 9:47 Approved by: Eddie Jean Baptiste M.D. on 06/17/2023 at 9:50
== END ==
PROVIDERS: PCP Family Medicine; Referring Provider Physician Assistant; Visit Provider Physician Assistant
DX: J84.9 Interstitial pulmonary disease, unspecified (principal); I28.8 Other diseases of pulmonary vessels; J06.9 Acute upper respiratory infection, unspecified; N40.0 Benign prostatic hyperplasia without lower urinary tract symptoms; R59.0 Localized enlarged lymph nodes
CPT/HCPCS: 36415; 71260; 82565; Q9967

== ENCOUNTER → 2023-07-08 09:02 | Outpatient (CLI) | payer OTHER, SELFPAY ==
[2023-07-17 19:42] LABS: CCP Antibodies IgG/IgA 5 units (0-19)
[2023-07-22 17:36] LABS: ANA Screen, IFA Negative (.)
== END ==
PROVIDERS: PCP Family Medicine; Referring Provider Internal Medicine Critical Care Medicine; Visit Provider Internal Medicine Critical Care Medicine
DX: J84.9 Interstitial pulmonary disease, unspecified (principal)
CPT/HCPCS: 36415; 86038; 86200

== ENCOUNTER → 2023-07-16 07:37 | Outpatient (CLI) | payer OTHER, SELFPAY | PROVIDERS: PCP Family Medicine; Referring Provider Internal Medicine Critical Care Medicine; Visit Provider Internal Medicine Critical Care Medicine | DX: R06.09 Other forms of dyspnea (principal); Z87.891 Personal history of nicotine dependence; J98.8 Other specified respiratory disorders | CPT/HCPCS: 94060; 94726; 94729 ==

== ENCOUNTER → 2023-07-27 06:54 | Outpatient (CLI) | payer OTHER, SELFPAY ==
--- NOTE | 2023-07-27 06:55 | DI.ECHO.S_ITS ---
[facility]---------+ [facility] +---------+ : : [address] : : : : [id number] : : : : Phone: [phone]+ Echocardiogram Report + + :Name: TONIO MANCINI Study Date: 07/27/2023 Height: 66 in : :[facility] ReadingLocation: Weight: 145 lb : : Gender: Male BSA: 1.7 m2 : :: 1950 Age: 73 yrs BP: 170/85 mmHg: :Reason For Study: ILD, EVAL FOR PULMONARY HYPERTENSION : :Ordering Physician: MARIANNE, : :JARON Performed By: Chio Echeverria : :Referring: JARON LOPES : + + Interpretation Summary Normal both left and right ventricle size and function. The ejection fraction is 60-65%. Mild tricuspid regurgitation. Right ventricular systolic pressure is estimated to be 47 mmHg plus the clinically estimated CVP which cannot be estimated on this exam. Procedure: A two-dimensional transthoracic echocardiogram with color flow and Doppler was performed. The study quality was technically adequate. There is no prior echocardiogram noted for this patient. The heart rate ranged between 45-70 bpm during the study. Left Ventricle: The left ventricle is normal in size and wall thickness. The ejection fraction is estimated to be 60-65%. There are no focal wall motion abnormalities. Diastolic parameters suggest probable normal left ventricular diastolic function and normal filling pressures. Right Ventricle: The right ventricle is normal in size and function. Atria: The left atrial size is normal. Right atrial size is normal. There is no Doppler evidence for an interatrial shunt. Mitral Valve: The mitral valve leaflets appear borderline thickened, but open well. There is borderline mitral valve prolapse. There is trace mitral regurgitation. Aortic Valve: The aortic valve is trileaflet. The aortic valve opens well. There is no aortic valve stenosis. There is trace aortic regurgitation. Tricuspid Valve: The tricuspid valve is normal in structure and function. There is mild tricuspid regurgitation. Right ventricular systolic pressure is estimated to be 47 mmHg plus the clinically estimated CVP which cannot be estimated on this exam. Pulmonic Valve: The pulmonic valve leaflets are thin and pliable; valve motion is normal. There is mild pulmonic regurgitation. Great Vessels: The aortic root is normal size. The dimensions of the ascending aorta are normal. The inferior vena cava was not well visualized. Pericardium/ Pleura There is no pericardial effusion. There is no pleural effusion. MMode/2D Measurements & Calculations LVIDd: 4.3 cm LVOT diam: 2.1 cm LVIDs: 2.9 cm Ao root diam: 3.4 cm FS: 34.3 % asc Aorta Diam: 3.8 cm EPSS: 0.80 cm Ao Arch Diam (Prox Trans): 3.5 cm IVSd: 0.94 cm LVPWd: 0.87 cm LV mejia. diameter/BSA (cm/m^2): 2.5 LV sys. diameter/BSA (cm/m^2): 1.6 LA A2 area: 21.6 cm2 RA long axis: 5.3 cm LA A4 area: 16.3 cm2 RA area: 13.4 cm2 LA length (vol): 5.4 cm RA vol: 28.8 ml LA vol: 55.2 ml RA : 16.5 ml/m2 LA vol index: 31.6 ml/m2 RVD1 (basal): 3.9 cm RVD2 (mid): 3.5 cm TAPSE: 2.4 cm Doppler Measurements & Calculations Ao V2 max: 145.3 cm/sec LVOT Max Gerardo: 106.2 cm/sec Ao V2 mean: 95.9 cm/sec LV V1 max P.5 mmHg Ao max P.4 mmHg LV V1 VTI: 25.3 cm Ao mean P.1 mmHg MELY(I,D): 2.5 cm2 Ao V2 VTI: 34.7 cm MELY(V,D): 2.5 cm2 sev ratio: 0.73 MELY indexed to BSA (cm^2/m^2): 1.4 MV E max gerardo: 79.3 cm/sec TR max gerardo: 344.2 cm/sec MV A max gerardo: 80.5 cm/sec TR max P.4 mmHg MV E/A: 0.98 PA V2 max: 117.0 cm/sec Med Peak E' Gerardo: 8.3 cm/sec PA V2 mean: 71.0 cm/sec E/E' med: 9.6 PA mean P.3 mmHg Lat Peak E' Gerardo: 9.8 cm/sec PA pr(Accel): 49.9 mmHg E/E' lat: 8.1 E/e' average: 8.8 MV dec time: 0.23 sec SV(LVOT): 87.6 ml Electronically signed by: Arian Liu on Reading Physician:07/27/2023 12:52 PM
== END ==
PROVIDERS: PCP Family Medicine; Referring Provider Internal Medicine Critical Care Medicine; Visit Provider Internal Medicine Critical Care Medicine
DX: I37.1 Nonrheumatic pulmonary valve insufficiency (principal); I07.1 Rheumatic tricuspid insufficiency; R06.09 Other forms of dyspnea
CPT/HCPCS: 93306

== ENCOUNTER → 2023-10-20 06:43 | Outpatient (CLI) | payer MEDICARE, SELFPAY ==
[2023-10-20 08:08] LABS: Add Manual Diff / Slide Review NO; Basophils Absolute Auto 0 /uL (0-100); Basophils Percent Auto 0.8 % (0-2); Eosinophils Absolute Auto 300 /uL (0-450); Eosinophils Percent Auto 4.8 % (2-4); Hematocrit 39.7 % (41-53); Hemoglobin 14.1 g/dL (13.5-17.5); Lymphocytes Absolute Auto 1000 /uL (1100-4500); Lymphocytes Percent Auto 16.6 % (25-40); Mean Corpuscular HGB Conc 35.7 % (30-36); Mean Corpuscular Hemoglobin 31.4 PG (26-34); Mean Corpuscular Volume 87.9 fL (80-100); Monocytes Absolute Auto 800 /uL (0-900); Monocytes Percent Auto 13.7 % (3-14); Neutrophils Absolute Auto 3900 /uL (1500-7000); Neutrophils Percent Auto 64.1 % (50-75); Platelet Count 159 X10^3/uL (150-400); Red Blood Cell Count 4.51 X10^6/uL (4.5-5.9); Red Cell Distribution Width 13.3 % (11.6-14.8); White Blood Cell Count 6.1 X10^3/uL (4.5-11.0)
[2023-10-20 08:37] LABS: Alanine Aminotransferase 36 IU/L (<50); Albumin Globulin Ratio 1.8 (1.0-2.8); Alkaline Phosphatase 62 U/L (38-126); Aspartate Aminotransferase 38 IU/L (17-59); BUN Creatinine Ratio 24.3 (6-22); Bilirubin Total 0.7 mg/dL (0.2-1.3); Blood Urea Nitrogen 17 mg/dL (9-20); Calcium 8.6 mg/dL (8.4-10.2); Carbon Dioxide 28 mmol/L (22-32); Chloride 103 mmol/L (98-107); Cholesterol 121 mg/dL (140-199); Estimated Glomerular Filt Rate > 60 mL/min (>60); Globulin 2.2 g/dL (1.7-4.1); Glucose 102 mg/dL (80-110); HDL Cholesterol 62 mg/dL (40-60); HEMOLYSIS < 15 (0-50); LDL Cholesterol Calculated 50 mg/dL (<100); Potassium 4.8 mmol/L (3.4-5.1); Sodium 134 mmol/L (137-145); Total Protein 6.2 g/dL (6.3-8.2); Triglycerides 43 mg/dL (35-150)
[2023-10-20 09:04] LABS: Prostate Specific Antigen Scrn 0.112 ng/mL (0.1-4.0)
== END ==
PROVIDERS: PCP Family Medicine; Referring Provider Family Medicine; Visit Provider Family Medicine
DX: Z12.5 Encounter for screening for malignant neoplasm of prostate (principal); E03.9 Hypothyroidism, unspecified; E11.9 Type 2 diabetes mellitus without complications; E78.5 Hyperlipidemia, unspecified; I10 Essential (primary) hypertension
CPT/HCPCS: 36415; 80053; 80061; 83036; 85025; G0103

== ENCOUNTER → 2024-04-05 08:43 | Outpatient (CLI) | payer MEDICARE, SELFPAY | PROVIDERS: PCP Family Medicine; Referring Provider Internal Medicine Pulmonary Disease; Visit Provider Internal Medicine Pulmonary Disease | DX: J84.112 Idiopathic pulmonary fibrosis (principal); Z87.891 Personal history of nicotine dependence; R94.2 Abnormal results of pulmonary function studies | CPT/HCPCS: 94010; 94729 ==

== ENCOUNTER → 2024-04-26 07:51 | Outpatient (CLI) | payer MEDICARE, SELFPAY ==
[2024-04-26 08:44] LABS: Add Manual Diff / Slide Review NO; Basophils Absolute Auto 0 /uL (0-100); Basophils Percent Auto 0.5 % (0-2); Eosinophils Absolute Auto 300 /uL (0-450); Eosinophils Percent Auto 5.3 % (2-4); Hematocrit 40.7 % (41-53); Hemoglobin 14.4 g/dL (13.5-17.5); Lymphocytes Absolute Auto 900 /uL (1100-4500); Lymphocytes Percent Auto 19.6 % (25-40); Mean Corpuscular HGB Conc 35.4 % (30-36); Mean Corpuscular Hemoglobin 31.7 PG (26-34); Mean Corpuscular Volume 89.5 fL (80-100); Monocytes Absolute Auto 600 /uL (0-900); Neutrophils Absolute Auto 3000 /uL (1500-7000); Neutrophils Percent Auto 61.6 % (50-75); Platelet Count 155 X10^3/uL (150-400); Red Blood Cell Count 4.55 X10^6/uL (4.5-5.9); Red Cell Distribution Width 13.1 % (11.6-14.8); White Blood Cell Count 4.8 X10^3/uL (4.5-11.0)
[2024-04-26 10:13] LABS: Alanine Aminotransferase 37 IU/L (<50); Albumin 4.2 g/dL (3.5-5.0); Albumin Globulin Ratio 1.8 (1.0-2.8); Alkaline Phosphatase 60 U/L (38-126); Aspartate Aminotransferase 40 IU/L (17-59); BUN Creatinine Ratio 23.2 (6-22); Bilirubin Total 0.8 mg/dL (0.2-1.3); Blood Urea Nitrogen 19 mg/dL (9-20); Carbon Dioxide 27 mmol/L (22-32); Chloride 99 mmol/L (98-107); Estimated Glomerular Filt Rate > 60 mL/min (>60); Globulin 2.4 g/dL (1.7-4.1); Glucose 106 mg/dL (80-110); HEMOLYSIS < 15 (0-50); Potassium 4.2 mmol/L (3.4-5.1); Sodium 131 mmol/L (137-145); Total Protein 6.6 g/dL (6.3-8.2)
[2024-04-26 10:17] LABS: Creatinine Urine Random 31.71 mg/dL
[2024-04-26 10:49] LABS: TSH w/ Reflex to FT4 5.05 uIU/mL (0.47-4.68)
[2024-04-26 11:51] LABS: Free T4, Direct Thyroxine 0.95 ng/dL (0.78-2.19)
== END ==
PROVIDERS: PCP Family Medicine; Referring Provider Family Medicine; Visit Provider Family Medicine
DX: E11.9 Type 2 diabetes mellitus without complications (principal); I10 Essential (primary) hypertension; E03.9 Hypothyroidism, unspecified
CPT/HCPCS: 36415; 80053; 82043; 82570; 83036; 84439; 84443; 85025

== ENCOUNTER → 2024-06-04 09:28 | Outpatient (CLI) | payer MEDICARE, SELFPAY ==
[2024-06-04 10:33] LABS: Cholesterol 127 mg/dL (140-199); HDL Cholesterol 60 mg/dL (40-60); LDL Cholesterol Calculated 53 mg/dL (<100); Triglycerides 69 mg/dL (35-150)
[2024-06-04 11:04] LABS: TSH w/ Reflex to FT4 2.75 uIU/mL (0.47-4.68)
== END ==
PROVIDERS: PCP Family Medicine; Referring Provider Family Medicine; Visit Provider Family Medicine
DX: E03.9 Hypothyroidism, unspecified (principal); E78.5 Hyperlipidemia, unspecified; E11.9 Type 2 diabetes mellitus without complications
CPT/HCPCS: 36415; 80061; 84443

== ENCOUNTER 2024-08-08 13:39 | Observation (INO) | payer MEDICARE, SELFPAY ==
[2024-08-08] VITALS (33 sets, daily range): BP systolic 133–205; BP diastolic 66–104; PULSE 43–72; RESP 13–33; TEMP 36.3–36.5; O2SAT 89–100; BMI 22.6
--- NOTE | 2024-08-08 13:55 | DI.RAD.S_ITS ---
PROCEDURE: XR CHEST 1V INDICATIONS: Shortness of breath TECHNIQUE: One view of the chest was acquired. COMPARISON: [facility], CR, XR CHEST 2V, 06/11/2023, 12:54. [facility], CR, XR CHEST 2V, 05/31/2023, 11:21. FINDINGS: Surgical changes and devices: None. Lungs and pleura: Diffuse interstitial lung disease. No consolidation. Mediastinum: Mediastinal contours appear normal. Heart size is enlarged. Bones and chest wall: No suspicious bony lesions. Overlying soft tissues appear unremarkable. IMPRESSION: Diffuse interstitial lung disease without consolidation. Acute exacerbation of interstitial lung disease is not excluded. Dictated by: Eddie Jean Baptiste M.D. on 08/08/2024 at 14:32 Approved by: Eddie Jean Baptiste M.D. on 08/08/2024 at 14:32
--- NOTE | 2024-08-08 13:55 | EKG_ITS ---
[facility] [address], [place] [address] Test Date: 2024-08-08 Pat Name: Yordan Diez Department: [facility] Room: Gender: Male [employer]: ROMERO : 1950 Requested By: Order Number: [id number] Reading MD: Ja Guevara MD Measurements Intervals [place] Rate: 57 P: 42 [place]: 224 QRS: -16 QRSD: 94 T: 28 QT: 444 QTc: 432 Interpretive Statements Sinus bradycardia with 1st degree AV block Minimal voltage criteria for LVH, may be normal variant ( Josias product ) Electronically Signed On 08-09-2024 6:46:35 PDT by Ja Guevara MD
[2024-08-08 14:40] LABS: Influenza A - CEPHEID Flu A NEGATIVE (NEGATIVE); Influenza B - CEPHEID Flu B NEGATIVE (NEGATIVE); Respiratory Syncytial Virus Negative (Negative)
[2024-08-08 14:41] LABS: COVID-19 CEPHEID 4-PLEX PCR Negative (Negative)
[2024-08-08 14:43] LABS: Add Manual Diff / Slide Review NO; Basophils Absolute Auto 100 /uL (0-100); Basophils Percent Auto 1.4 % (0-2); Eosinophils Absolute Auto 500 /uL (0-450); Eosinophils Percent Auto 5.2 % (2-4); Hematocrit 39.7 % (41-53); Hemoglobin 14.1 g/dL (13.5-17.5); Lymphocytes Absolute Auto 800 /uL (1100-4500); Lymphocytes Percent Auto 9.4 % (25-40); Mean Corpuscular HGB Conc 35.5 % (30-36); Mean Corpuscular Hemoglobin 31.1 PG (26-34); Mean Corpuscular Volume 87.7 fL (80-100); Monocytes Absolute Auto 900 /uL (0-900); Monocytes Percent Auto 10.3 % (3-14); Neutrophils Absolute Auto 6300 /uL (1500-7000); Neutrophils Percent Auto 73.7 % (50-75); Platelet Count 207 X10^3/uL (150-400); Red Blood Cell Count 4.53 X10^6/uL (4.5-5.9); Red Cell Distribution Width 13.4 % (11.6-14.8); White Blood Cell Count 8.6 X10^3/uL (4.5-11.0)
[2024-08-08 14:54] LABS: INR 1.2 (0.9-1.3); Prothrombin Time 14.1 SECONDS (9.4-12.5)
[2024-08-08 14:56] LABS: Alanine Aminotransferase 27 IU/L (<50); Albumin 4.9 g/dL (3.5-5.0); Albumin Globulin Ratio 1.4 (1.0-2.8); Alkaline Phosphatase 37 U/L (38-126); Aspartate Aminotransferase 62 IU/L (17-59); BUN Creatinine Ratio 32.3 (6-22); Blood Urea Nitrogen 20 mg/dL (9-20); Calcium 9.1 mg/dL (8.4-10.2); Carbon Dioxide 18 mmol/L (22-32); Chloride 95 mmol/L (98-107); Estimated Glomerular Filt Rate > 60 mL/min (>60); Globulin 3.6 g/dL (1.7-4.1); Glucose 104 mg/dL (80-110); Potassium 5.3 mmol/L (3.4-5.1); Sodium 126 mmol/L (137-145); Total Protein 8.5 g/dL (6.3-8.2)
[2024-08-08 14:57] LABS: HEMOLYSIS 272 (0-50)
[2024-08-08 14:58] LABS: Lactate (Lactic Acid) 1.2 mmol/L (0.7-2.1)
[2024-08-08 15:09] LABS: NT-proBNP (BNP-Adult 18+) 580 pg/mL (<125); Troponin I 0.025 ng/mL (0.01-0.034)
--- NOTE | 2024-08-08 15:54 | PC.NURSE ---
Pt ambulated from wheelchair to gurney. Placed on monitors. Pt is SOB. Pulse ox show 71% on RA. Placed on 15L via NC. Called RT to bedside. Pt reports recent flight 2 weeks ago prior to SOB onset and a productive cough. He also reports hx of pulmonary fibrosis with not needing oxygen. Not sure if on thinners. Does not think so. Pt oxygen climbs to 100% on 15L via nonrebreather. Provider Oliverio made aware. RT Asaf at bedside.
--- NOTE | 2024-08-08 16:04 | PC.NURSE ---
Pt reports diagnosis of pulmonary fibrosis. No need for oxygen prior.
--- NOTE | 2024-08-08 18:21 | ED.SOB ---
HPI - SOB/Dyspnea General Chief Complaint: Shortness of Breath/Dyspnea Stated Complaint: blood oxy reading 90-92 sent by PCP Time Seen by Provider: 08/08/24 18:05 Source: patient Mode of arrival: Ambulatory Limitations: no limitations History of Present Illness HPI Narrative: Patient is a 74 year old male with history of idiopathic pulmonary fibrosis, hypertension hyperlipidemia diabetes [id number], CVA, presenting today with increasing shortness of breath. He reports that his pulmonary fibrosis has been relatively stable. He and his flew to [place] about 6 weeks ago since he got back he has had increasing shortness of breath with exertion. No fever or chills has a cough but it has not productive. He does not feel like he has an infection. He denies any sort of orthopnea no lower extremity edema. He is followed by primary care sounds like they are adjusting his medication for bradycardia. Cut his labetalol and half 100 mg twice a day and increase terazosin 2 mg b.i.d. he was noted to be hypertensive here in the emergency department. He was not oxygen dependent but now requiring 2 L of oxygen. His home O2 was 88% Related Data Home Medications Medication Instructions Recorded Confirmed aspirin 81 mg tablet,delayed 81 mg PO DAILY 11/08/19 08/08/24 release (Adult Aspirin Regimen) tamsulosin 0.4 mg capsule 0.8 mg PO BID 08/08/24 08/08/24 terazosin 2 mg capsule 2 mg PO BID 08/08/24 08/08/24 Previous Rx's Medication Instructions Recorded [employer] True Metrix Air Meter #1 ea 10/09/20 blood-glucose meter (OneTouch #1 kit 09/19/21 Verio Flex Meter) test strips #400 ea 12/28/23 atorvastatin 20 mg tablet 20 mg PO BEDTIME #90 tabs 06/10/24 blood sugar diagnostic (Oneuch #360 ea 06/10/24 Verio test strips) finasteride 5 mg tablet 5 mg PO DAILY #90 tabs 06/10/24 hydrochlorothiazide 25 mg tablet 25 mg PO DAILY #90 tabs 06/10/24 lancets 33 gauge (OneTouch Delcourtney #400 ea 06/10/24 Plus Lancet) levothyroxine 50 mcg tablet 50 mcg PO DAILY #90 tabs 06/10/24 losartan 100 mg tablet 100 mg PO DAILY #90 tabs 06/10/24 metformin 500 mg tablet,extended 500 mg PO BID #180 tabs 06/17/24 release 24 hr tadalafil 5 mg tablet (Cialis) 5 mg PO DAILY #30 tabs 07/08/24 labetalol 200 mg tablet 200 mg PO BID #180 tabs 07/25/24 Allergies Allergy/AdvReac Type Severity Reaction Status Date / Time No Known Drug Allergies Allergy Verified 07/12/24 09:23 Patient History Medical History Cold feeling Bradycardia Hx of arterial ischemic stroke Pulmonary hypertension Secondhand smoke exposure History of tobacco use BPH w urinary obs/LUTS Nocturia more than twice per night Idiopathic pulmonary fibrosis Diabetic cataract of both eyes Eczema of right hand Hypothyroidism (acquired) Elevated TSH Multiple actinic keratoses Breakdown (mechanical) of other cardiac and vascular devices and implants, initial encounter Vitamin D deficiency Hyperlipidemia Substance abuse (~1967) Stroke (~2016) Measles (~1956) Kidney disease BPH (benign prostatic hyperplasia) Hemorrhoid Diabetes mellitus (~2016) Hypertension Surgical History Anesthesia History of hernia repair (~2005) S/P LASIK surgery (~1997) History of ankle surgery (~1993) Family History Father Hypertension Stroke Mother Kidney disease Brother Kidney disease Social History marital status: number of children: 0 household members: spouse occupational status: previously employed Smoking Status: Former smoker Tobacco: How many years used: 18 alcohol intake: former substance use type: does not use caffeine: Yes Type(s) of exercise: walking frequency: 5-6 times per week duration: 15-30 minutes/day Smoking Status: Former smoker Exam Initial Vital Signs Initial Vital Signs: Vital Signs Temperature 97.7 F 08/08/24 13:47 Pulse Rate 58 L 08/08/24 13:47 Respiratory Rate 20 08/08/24 13:47 Blood Pressure 171/84 H 08/08/24 13:47 Pulse Oximetry 89 L 08/08/24 13:47 Oxygen Delivery Method Room Air 08/08/24 13:47 GENERAL: Alert very well-appearing 74-year-old male HEENT: Head atraumatic,EOMI, pupils reactive, face symmetric, moist mucous membranes CARDIOVASCULAR: Regular rate and rhythm without murmurs, rubs or gallops. RESPIRATORY: Crackles greater than left no wheezing or rales no conversational dyspnea ABDOMEN: Soft, nontender. Normoactive bowel sounds all 4 quadrants. No guarding or rebound. EXTREMITIES: Normal range of motion, no clubbing or edema. Neurovascularly intact NEUROLOGICAL: Alert and oriented x4.Normal gait and speech. Cranial nerves II through XII grossly intact. SKIN: Warm, dry, no laceration, no petechiae, no rashes or lesions. Course Orders Ordered: ED Orders 08/08/24 18:33 CT angio chest PE protocol Stat Acetaminophen (Acetaminophen 325 Mg Tablet) 650 mg PO Q6H PRN PRN Reason: Fever/Mild Pain (1-3) Aspirin (Aspirin Ec 81 Mg Tablet) 81 mg PO DAILY [facility] Atorvastatin Calcium (Atorvastatin 20 Mg Tablet) 20 mg PO BEDTIME [facility] Enoxaparin Sodium (Enoxaparin 40 Mg/0.4 Ml Syringe) 40 mg SUBCUT DAILY [facility] Finasteride (Finasteride 5 Mg Tablet) 5 mg PO DAILY [facility] Levothyroxine Sodium (Levothyroxine 50 Mcg Tablet) 50 mcg PO DAILY [facility] Losartan Potassium (Losartan 50 Mg Tablet) 100 mg PO DAILY [facility] Metformin HCl (Metformin Xr 500 Mg Tablet) 500 mg PO BID [facility] Naloxone HCl (Naloxone 0.4 Mg/Ml Vial) 0.2 mg IV Q2MIN PRN PRN Reason: Opiate Reversal Tamsulosin HCl (Tamsulosin 0.4 Mg Capsule) 0.8 mg PO DAILY [facility] Vital Signs Vital signs: Vital Signs - 8 hr 08/08/24 17:30 08/08/24 17:30 08/08/24 17:45 Pulse Rate 46 L Respiratory Rate 15 Blood Pressure 175/82 H 182/90 H Pulse Oximetry 97 Oxygen Delivery Method Oxygen Flow Rate 08/08/24 17:45 08/08/24 18:00 08/08/24 18:00 Pulse Rate 43 L 45 L Respiratory Rate 23 21 Blood Pressure 176/89 H Pulse Oximetry 98 99 Oxygen Delivery Method Oxygen Flow Rate 08/08/24 18:15 08/08/24 18:15 08/08/24 18:30 Pulse Rate 45 L Respiratory Rate 15 Blood Pressure 187/90 H 194/104 H Pulse Oximetry 99 Oxygen Delivery Method Oxygen Flow Rate 08/08/24 18:30 08/08/24 18:45 08/08/24 18:45 Pulse Rate 60 48 L Respiratory Rate 27 H 27 H Blood Pressure 177/87 H Pulse Oximetry 97 98 Oxygen Delivery Method Oxygen Flow Rate 08/08/24 19:08 08/08/24 19:30 08/08/24 19:48 Pulse Rate 56 L 48 L Respiratory Rate 24 33 H Blood Pressure 184/85 H Pulse Oximetry 94 96 Oxygen Delivery Method Oxygen Flow Rate 08/08/24 19:48 08/08/24 20:00 08/08/24 20:00 Pulse Rate 45 L 44 L Respiratory Rate 13 14 Blood Pressure 170/81 H Pulse Oximetry 98 96 Oxygen Delivery Method Nasal Cannula Oxygen Flow Rate 2 08/08/24 20:15 08/08/24 20:15 08/08/24 20:30 Pulse Rate 44 L Respiratory Rate 19 Blood Pressure 168/83 H 163/87 H Pulse Oximetry 97 Oxygen Delivery Method Oxygen Flow Rate 08/08/24 20:30 08/08/24 20:50 08/08/24 20:50 Pulse Rate 45 L 48 L Respiratory Rate 23 16 Blood Pressure 205/82 H Pulse Oximetry 95 95 Oxygen Delivery Method Room Air Oxygen Flow Rate 08/08/24 21:00 08/08/24 21:01 08/08/24 21:01 Pulse Rate 47 L 49 L Respiratory Rate 19 26 H Blood Pressure 163/82 H Pulse Oximetry 97 97 Oxygen Delivery Method Nasal Cannula Nasal Cannula Oxygen Flow Rate 2 2 08/08/24 21:15 08/08/24 21:15 08/08/24 21:30 Pulse Rate 50 L 48 L Respiratory Rate 20 17 Blood Pressure 142/71 H Pulse Oximetry 96 96 Oxygen Delivery Method Nasal Cannula Nasal Cannula Oxygen Flow Rate 2 2 08/08/24 21:31 08/08/24 21:31 08/08/24 21:45 Pulse Rate 47 L Respiratory Rate 17 Blood Pressure 170/73 H 139/66 Pulse Oximetry 96 Oxygen Delivery Method Nasal Cannula Oxygen Flow Rate 08/08/24 21:45 08/08/24 22:00 08/08/24 22:00 Pulse Rate 45 L 46 L Respiratory Rate 16 20 Blood Pressure 133/67 Pulse Oximetry 94 96 Oxygen Delivery Method Nasal Cannula Nasal Cannula Oxygen Flow Rate 2 2 MDM - SOB/Dyspnea Lab Data 08/08/24 14:25 08/08/24 13:55 Labs: Lab Results 08/08/24 08/08/24 08/08/24 Range/Units 13:54 13:55 14:25 WBC 8.6 (4.5-11.0) X10^3/uL RBC 4.53 (4.5-5.9) X10^6/uL Hgb 14.1 (13.5-17.5) g/dL Hct 39.7 L (41-53) % MCV 87.7 (80-100) fL MCH 31.1 (26-34) PG MCHC 35.5 (30-36) % RDW 13.4 (11.6-14.8) % Plt Count 207 (150-400) X10^3/uL Neut % (Auto) 73.7 (50-75) % Lymph % (Auto) 9.4 L (25-40) % Morris % (Auto) 10.3 (3-14) % Eos % (Auto) 5.2 H (2-4) % Baso % (Auto) 1.4 (0-2) % Neut # (Auto) 6300 (8618-6449) /uL Lymph # (Auto) 800 L (1924-4124) /uL Morris # (Auto) 900 (0-900) /uL Eos # (Auto) 500 H (0-450) /uL Baso # (Auto) 100 (0-100) /uL PT 14.1 H (9.4-12.5) SECONDS INR 1.2 (0.9-1.3) Sodium 126 L (137-145) mmol/L Potassium 5.3 H (3.4-5.1) mmol/L Chloride 95 L (98-107) mmol/L Carbon Dioxide 18 L (22-32) mmol/L BUN 20 (9-20) mg/dL Creatinine 0.62 L (0.66-1.25) mg/dL Estimated GFR > 60 (>60) mL/min BUN/Creatinine Ratio 32.3 H (6-22) Glucose 104 (80-110) mg/dL Lactate 1.2 (0.7-2.1) mmol/L Calcium 9.1 (8.4-10.2) mg/dL Total Bilirubin 2.0 H (0.2-1.3) mg/dL AST 62 H (17-59) IU/L ALT 27 (<50) IU/L Alkaline Phosphatase 37 L (38-126) U/L Troponin I 0.025 (0.01-0.034) ng/mL NT-Pro-B Natriuret Pep 580 H (<125) pg/mL Total Protein 8.5 H (6.3-8.2) g/dL Albumin 4.9 (3.5-5.0) g/dL Globulin 3.6 (1.7-4.1) g/dL Albumin/Globulin Ratio 1.4 (1.0-2.8) SARS-CoV-2 (PCR) Negative (Negative) Influenza A (RT-PCR) Flu a negative (NEGATIVE) Influenza B (RT-PCR) Flu b negative (NEGATIVE) RSV (PCR) Negative (Negative) Imaging Data Chest x-ray: Radiologist's Impression: PROCEDURE: XR CHEST 1V INDICATIONS: Shortness of breath TECHNIQUE: One view of the chest was acquired. COMPARISON: [facility], , XR CHEST 2V, 06/11/2023, 12:54. [facility], , XR CHEST 2V, 05/31/2023, 11:21. FINDINGS: Surgical changes and devices: None. Lungs and pleura: Diffuse interstitial lung disease. No consolidation. Mediastinum: Mediastinal contours appear normal. Heart size is enlarged. Bones and chest wall: No suspicious bony lesions. Overlying soft tissues appear unremarkable. IMPRESSION: Diffuse interstitial lung disease without consolidation. Acute exacerbation of interstitial lung disease is not excluded. Dictated by: Eddie Jean Baptiste M.D. on 08/08/2024 at 14:32 CT scan - chest: Radiologist's Impression: PROCEDURE: CT ANGIO CHEST PE PROTOCOL INDICATIONS: hypoxia pulmonary fibrosis TECHNIQUE: After the administration of intravenous contrast, 2 mm thick sections acquired from the pulmonary apices to the posterior costophrenic angles. 3-dimensional maximum intensity projection (MIP) coronal and sagittal reformats were then acquired through the thorax. For radiation dose reduction, the following was used: automated exposure control, adjustment of mA and/or kV according to patient size. COMPARISON: None. FINDINGS: Image quality: Diagnostic. Pulmonary arteries: Pulmonary arteries are normal in size, and demonstrate no intraluminal filling defects to suggest central pulmonary embolism. Lower Neck: No enlarged lymph nodes. Thyroid: Diminutive thyroid gland, not well evaluated. Axillae: No enlarged lymph nodes. Chest Wall: Unremarkable. Bones: Multilevel disc and endplate degeneration in the thoracic spine. Remote right-sided rib fracture. Lungs and Pleura: Central airways are patent. Mild diffuse cylindrical and minimally varicose bronchiectasis bilaterally, predominantly in the lower lobes. Moderate bilateral, predominantly lower lobe honeycombing. Patchy subpleural opacity posterolateral right mid lung. Diffuse peripheral reticulation. No acute ground-glass opacities or pleural effusions. Heart: The heart is enlarged. No significant pericardial effusion. Mild aortic valvular calcification. Thoracic Vessels: Normal caliber thoracic aorta and great vessels. Mediastinum and Sammi: Mediastinal and bilateral confluent hilar adenopathy, mildly progressed. Esophagus: No wall thickening. No hiatal hernia. Upper Abdomen: Visualized upper abdomen solid organs and bowel loops appear normal. IMPRESSION: No pulmonary embolus. Stable findings of pulmonary fibrosis and right lung subpleural opacity without acute superimposed lung disease visible. Stable cardiomegaly. Dictated by: Michelle Garcia M.D. on 08/08/2024 at 19:47 ECG Data Attestation: I personally reviewed and interpreted this ECG as follows: Prior ECG tracings: available for review Interpretation: Normal sinus rhythm rate 57 DE interval 224 QRS 94 QTC 432 T-wave inversion noted in lead 3 MDM Narrative Medical decision making narrative: [facility] CC: Shortness of breath Complicating co-morbidities: Interstitial pulmonary fibrosis, CVA, hypertension Data collected from: Patient and Medical records reviewed: PCP note from August 05 reviewed Echocardiogram 07/27/2023 EF 60 65% Differential considered: Infection pulmonary embolism congestive heart failure acute coronary syndrome pulmonary fibrosis Exam documented above, pertinent findings include: Alert well-appearing 74-year-old male he does have crackles right greater than left no wheezing no peripheral edema abdomen soft nontender Lab Test results independently reviewed as above. Pertinent findings: WBC 8.6 hemoglobin 14.1 hematocrit 30 9.7 Sodium 126 potassium 5.3 chloride 95 bicarb 18 BUN 20 creatinine 0.62 Lactate 1.2 Bilirubin 2.0 AST 62 ALT 27 alk-phos 37 Troponin 0.025, BNP 580 Independently reviewed EKG as above Imaging studies independently reviewed: Chest x-ray diffuse interstitial lung disease no consolidation CT angio no pulmonary embolism stable pulmonary fibrosis able cardiomegaly Consultations: Dr. Carrillo, accepts patient Treatments: Solu-Medrol oxygen Re-evaluations: Ambulation trial patient went down to 77% he was requiring 1-2 L at rest, Discussion: Patient 74-year-old male history of pulmonary fibrosis presenting today with increasing shortness of breath. It has been a progressive decline over the last 6 weeks. He has not previously needed any medication or oxygen. Blood work has been reviewed He does some minor electrolyte abnormalities sodium slightly low 126 potassium elevated 5.3 bilirubin liver enzymes are also elevated has a BNP of 580 no significant evidence of fluid overload. He has absolutely no right upper quadrant pain, no nausea or vomiting nothing to suggest a cholelithiasis cholecystitis. He truly overall appears well nontoxic while at rest. However with ambulation O2 drops to 77%. At rest he was needing 1-2 L. unable to get home O2 at night. Discharge Plan Departure Patient Disposition: Admitted as Observation Clinical Impression: Pulmonary fibrosis, Hypoxia, Acute hyponatremia Admit Date/Time: 08/08/24 22:08 Admit Provider: Miguel Cash
--- NOTE | 2024-08-08 18:33 | DI.CT.S_ITS ---
PROCEDURE: CT ANGIO CHEST PE PROTOCOL INDICATIONS: hypoxia pulmonary fibrosis TECHNIQUE: After the administration of intravenous contrast, 2 mm thick sections acquired from the pulmonary apices to the posterior costophrenic angles. 3-dimensional maximum intensity projection (MIP) coronal and sagittal reformats were then acquired through the thorax. For radiation dose reduction, the following was used: automated exposure control, adjustment of mA and/or kV according to patient size. COMPARISON: None. FINDINGS: Image quality: Diagnostic. Pulmonary arteries: Pulmonary arteries are normal in size, and demonstrate no intraluminal filling defects to suggest central pulmonary embolism. Lower Neck: No enlarged lymph nodes. Thyroid: Diminutive thyroid gland, not well evaluated. Axillae: No enlarged lymph nodes. Chest Wall: Unremarkable. Bones: Multilevel disc and endplate degeneration in the thoracic spine. Remote right-sided rib fracture. Lungs and Pleura: Central airways are patent. Mild diffuse cylindrical and minimally varicose bronchiectasis bilaterally, predominantly in the lower lobes. Moderate bilateral, predominantly lower lobe honeycombing. Patchy subpleural opacity posterolateral right mid lung. Diffuse peripheral reticulation. No acute ground-glass opacities or pleural effusions. Heart: The heart is enlarged. No significant pericardial effusion. Mild aortic valvular calcification. Thoracic Vessels: Normal caliber thoracic aorta and great vessels. Mediastinum and Sammi: Mediastinal and bilateral confluent hilar adenopathy, mildly progressed. Esophagus: No wall thickening. No hiatal hernia. Upper Abdomen: Visualized upper abdomen solid organs and bowel loops appear normal. IMPRESSION: No pulmonary embolus. Stable findings of pulmonary fibrosis and right lung subpleural opacity without acute superimposed lung disease visible. Stable cardiomegaly. Dictated by: Michelle Garcia M.D. on 08/08/2024 at 19:47 Approved by: Michelle Garcia M.D. on 08/08/2024 at 19:53
--- NOTE | 2024-08-08 20:51 | PC.NURSE ---
Ambulated pt on RA. Sats dropped to 77%. Returned to [facility]. Placed on 2L NC and sats improved to 92%. Dr Kong notified.
--- NOTE | 2024-08-08 22:21 | P.HP_ITS ---
History of Present Illness History of Present Illness Date Patient Seen: 08/08/24 Chief complaint: blood oxy reading 90-92 sent by PCP Narrative: Patient is a 74 year old male with history of idiopathic pulmonary fibrosis, hypertension hyperlipidemia diabetes [id number]-zoxgrvfqw, CVA, presenting today with increasing shortness of breath. He reports that his pulmonary fibrosis has been relatively stable. He and his flew to [place] about 6 weeks ago since he got back he has had increasing shortness of breath with exertion. No fever or chills has a cough but it has not productive. He does not feel like he has an infection. He denies any sort of orthopnea no lower extremity edema. He is followed by primary care sounds like they are adjusting his medication for bradycardia. Cut his labetalol and half 100 mg twice a day and increase terazosin 2 mg b.i.d. he was noted to be hypertensive here in the emergency department. He was not oxygen dependent but now requiring 2 L of oxygen. 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 On presentation hypoxic, w/o evidence of pneumonia. Placed in observation. Additional history of hypertension hyperlipidemia diabetes [id number], CVA. [facility] Medical History Cold feeling Bradycardia Hx of arterial ischemic stroke Pulmonary hypertension Secondhand smoke exposure History of tobacco use BPH w urinary obs/LUTS Nocturia more than twice per night Idiopathic pulmonary fibrosis Diabetic cataract of both eyes Eczema of right hand Hypothyroidism (acquired) Elevated TSH Multiple actinic keratoses Breakdown (mechanical) of other cardiac and vascular devices and implants, initial encounter Vitamin D deficiency Hyperlipidemia Substance abuse (~1967) Stroke (~2016) Measles (~1956) Kidney disease BPH (benign prostatic hyperplasia) Hemorrhoid Diabetes mellitus (~2016) Hypertension Surgical History Anesthesia History of hernia repair (~2005) S/P LASIK surgery (~1997) History of ankle surgery (~1993) Family History Father Hypertension Stroke Mother Kidney disease Brother Kidney disease Social History marital status: number of children: 0 household members: spouse occupational status: previously employed Smoking Status: Former smoker Tobacco: How many years used: 18 alcohol intake: former substance use type: does not use caffeine: Yes Type(s) of exercise: walking frequency: 5-6 times per week duration: 15-30 minutes/day Meds Home Medications and Allergies Home Medications Medication Instructions Recorded Confirmed Type aspirin 81 mg tablet,delayed 81 mg PO DAILY 11/08/19 08/08/24 History release (Adult Aspirin Regimen) [employer] True Metrix Air Meter #1 ea 10/09/20 07/12/24 Rx blood-glucose meter (OneTouch #1 kit 09/19/21 07/12/24 Rx Verio Flex Meter) test strips #400 ea 12/28/23 07/12/24 Rx atorvastatin 20 mg tablet 20 mg PO BEDTIME #90 tabs 06/10/24 08/08/24 Rx blood sugar diagnostic (OneTouch #360 ea 06/10/24 07/12/24 Rx Verio test strips) finasteride 5 mg tablet 5 mg PO DAILY #90 tabs 06/10/24 08/08/24 Rx hydrochlorothiazide 25 mg tablet 25 mg PO DAILY #90 tabs 06/10/24 08/08/24 Rx lancets 33 gauge (OneTouch Delica #400 ea 06/10/24 07/12/24 Rx Plus Lancet) levothyroxine 50 mcg tablet 50 mcg PO DAILY #90 tabs 06/10/24 08/08/24 Rx losartan 100 mg tablet 100 mg PO DAILY #90 tabs 06/10/24 08/08/24 Rx metformin 500 mg tablet,extended 500 mg PO BID #180 tabs 06/17/24 08/08/24 Rx release 24 hr tadalafil 5 mg tablet (Cialis) 5 mg PO DAILY #30 tabs 07/08/24 08/08/24 Rx labetalol 200 mg tablet 200 mg PO BID #180 tabs 07/25/24 08/08/24 Rx tamsulosin 0.4 mg capsule 0.8 mg PO BID 08/08/24 08/08/24 History terazosin 2 mg capsule 2 mg PO BID 08/08/24 08/08/24 History Allergies Allergy/AdvReac Type Severity Reaction Status Date / Time No Known Drug Allergies Allergy Verified 07/12/24 09:23 Review of Systems Review of Systems Narrative: General - w/o fever or chills RS - progressive dyspnea, dry cough, not wheezy CVS - w/o chest pain Exam Vital Signs (past 8 hours): - 08/08/24 15:48 08/08/24 15:52 08/08/24 15:52 Pulse Rate 72 51 L Respiratory Rate 32 H 23 Blood Pressure 200/96 H Pulse Oximetry 100 Oxygen Delivery Method Non -Rebreather Oxygen Flow Rate 15 08/08/24 16:00 08/08/24 16:00 08/08/24 16:05 Pulse Rate 48 L Respiratory Rate 16 22 Blood Pressure 172/81 H Pulse Oximetry 100 99 Oxygen Delivery Method Nasal Cannula Oxygen Flow Rate 2 08/08/24 16:15 08/08/24 16:15 08/08/24 16:30 Pulse Rate 49 L Respiratory Rate 21 Blood Pressure 167/81 H 166/81 H Pulse Oximetry 99 Oxygen Delivery Method Nasal Cannula Oxygen Flow Rate 2 08/08/24 16:30 08/08/24 16:45 08/08/24 16:45 Pulse Rate 49 L 47 L Respiratory Rate 20 13 Blood Pressure 153/81 H Pulse Oximetry 99 100 Oxygen Delivery Method Oxygen Flow Rate 08/08/24 17:00 08/08/24 17:01 08/08/24 17:01 Pulse Rate 47 L 46 L Respiratory Rate 15 25 H Blood Pressure 167/82 H Pulse Oximetry 98 98 Oxygen Delivery Method Oxygen Flow Rate 08/08/24 17:15 08/08/24 17:15 08/08/24 17:30 Pulse Rate 46 L Respiratory Rate 19 Blood Pressure 175/81 H 175/82 H Pulse Oximetry 98 Oxygen Delivery Method Oxygen Flow Rate 08/08/24 17:30 08/08/24 17:45 08/08/24 17:45 Pulse Rate 46 L 43 L Respiratory Rate 15 23 Blood Pressure 182/90 H Pulse Oximetry 97 98 Oxygen Delivery Method Oxygen Flow Rate 08/08/24 18:00 08/08/24 18:00 08/08/24 18:15 Pulse Rate 45 L Respiratory Rate 21 Blood Pressure 176/89 H 187/90 H Pulse Oximetry 99 Oxygen Delivery Method Oxygen Flow Rate 08/08/24 18:15 08/08/24 18:30 08/08/24 18:30 Pulse Rate 45 L 60 Respiratory Rate 15 27 H Blood Pressure 194/104 H Pulse Oximetry 99 97 Oxygen Delivery Method Oxygen Flow Rate 08/08/24 18:45 08/08/24 18:45 08/08/24 19:08 Pulse Rate 48 L 56 L Respiratory Rate 27 H 24 Blood Pressure 177/87 H Pulse Oximetry 98 94 Oxygen Delivery Method Oxygen Flow Rate 08/08/24 19:30 08/08/24 19:48 08/08/24 19:48 Pulse Rate 48 L 45 L Respiratory Rate 33 H 13 Blood Pressure 184/85 H Pulse Oximetry 96 98 Oxygen Delivery Method Nasal Cannula Oxygen Flow Rate 2 08/08/24 20:00 08/08/24 20:00 08/08/24 20:15 Pulse Rate 44 L Respiratory Rate 14 Blood Pressure 170/81 H 168/83 H Pulse Oximetry 96 Oxygen Delivery Method Oxygen Flow Rate 08/08/24 20:15 08/08/24 20:30 08/08/24 20:30 Pulse Rate 44 L 45 L Respiratory Rate 19 23 Blood Pressure 163/87 H Pulse Oximetry 97 95 Oxygen Delivery Method Room Air Oxygen Flow Rate 08/08/24 20:50 08/08/24 20:50 08/08/24 21:00 Pulse Rate 48 L 47 L Respiratory Rate 16 19 Blood Pressure 205/82 H Pulse Oximetry 95 97 Oxygen Delivery Method Nasal Cannula Oxygen Flow Rate 2 08/08/24 21:01 08/08/24 21:01 08/08/24 21:15 Pulse Rate 49 L Respiratory Rate 26 H Blood Pressure 163/82 H 142/71 H Pulse Oximetry 97 Oxygen Delivery Method Nasal Cannula Oxygen Flow Rate 2 08/08/24 21:15 Pulse Rate 50 L Respiratory Rate 20 Blood Pressure Pulse Oximetry 96 Oxygen Delivery Method Nasal Cannula Oxygen Flow Rate 2 Oxygen Delivery Method Nasal Cannula Oxygen Flow Rate 2 Narrative Exam Narrative: General - in no distress RS - b/l crackles CVS - bradycardic Skin - not cyanotic Neuro - lucid Objective ECG Impression: Sinus bradycardia 57, 1st degree AV block, LVH Labs 08/09/24 05:40 08/09/24 05:40 Labs: Laboratory Results - last 24 hr 08/08/24 08/08/24 08/08/24 13:54 13:55 14:25 WBC 8.6 RBC 4.53 Hgb 14.1 Hct 39.7 L MCV 87.7 MCH 31.1 MCHC 35.5 RDW 13.4 Plt Count 207 Neut % (Auto) 73.7 Lymph % (Auto) 9.4 L [place] % (Auto) 10.3 Eos % (Auto) 5.2 H Baso % (Auto) 1.4 Neut # (Auto) 6300 Lymph # (Auto) 800 L [place] # (Auto) 900 Eos # (Auto) 500 H Baso # (Auto) 100 PT 14.1 H INR 1.2 Sodium 126 L Potassium 5.3 H Chloride 95 L Carbon Dioxide 18 L BUN 20 Creatinine 0.62 L Estimated GFR > 60 BUN/Creatinine Ratio 32.3 H Glucose 104 Lactate 1.2 Calcium 9.1 Total Bilirubin 2.0 H AST 62 H ALT 27 Alkaline Phosphatase 37 L Troponin I 0.025 NT-Pro-B Natriuret Pep 580 H Total Protein 8.5 H Albumin 4.9 Globulin 3.6 Albumin/Globulin Ratio 1.4 SARS-CoV-2 (PCR) Negative Influenza A (RT-PCR) Flu a negative Influenza B (RT-PCR) Flu b negative RSV (PCR) Negative Assessment & Plan Assessment and plan (1) Idiopathic pulmonary fibrosis: Status: Acute (2) Acute hypoxic respiratory failure: Status: Acute (3) Acute hyponatremia: Status: Acute (4) BPH w urinary obs/LUTS: Status: Acute (5) Hypertension: Qualifiers: Hypertension type: essential hypertension Qualified Code(s): I10 - Essential (primary) hypertension Status: Chronic Assessment & Plan narrative: ILD - idiopathic - needs home oxygen - consider prednisone with PPI, consult with pulmonology - has follow up with waterproofer helper in [place] in 2-3 weeks BPH - Flomax, finasteride DM - metformin, CCD, SS HTN - Losartan Hx of CVA - statin, ASA Hypothyroidism - levothyroxine DVT prophylaxis - Lovenox Time-Based Coding :: [TOTAL MINUTES] spent with patient and on the chart (including review of chart, obtaining history, exam, reviewing outside data, placing orders, documenting exam and treatment plan, and counseling patient) on [DATE].
--- NOTE | 2024-08-08 22:38 | PC.NURSE ---
Report given to Manju DOOLEYpatient care assistant [phone]
[2024-08-09] VITALS (7 sets, daily range): BP systolic 133–159; BP diastolic 72–88; PULSE 48–65; RESP 16–20; TEMP 36.3–36.9; O2SAT 91–97
--- NOTE | 2024-08-09 00:45 | PC.NURSE ---
Assumed care of patient from ED, pt self transferred from [facility] to bed. 2L O2 NC, 95%; cont SpO2 monitoring. RAC PIV flushed/patent. Pt A&Ox4, hypertensive, bradycardic, pleasant and cooperative. Educated pt communication consultant light, urinal, and calling before getting up to restroom. Pt denies chest pain, cough, N/V, headache, or any other pain. Pt resting comfortably, call light within reach, plan of care continues.
[2024-08-09 06:09] LABS: Add Manual Diff / Slide Review NO; Basophils Absolute Auto 100 /uL (0-100); Basophils Percent Auto 2.2 % (0-2); Eosinophils Absolute Auto 500 /uL (0-450); Eosinophils Percent Auto 7.3 % (2-4); Hematocrit 39.2 % (41-53); Hemoglobin 13.9 g/dL (13.5-17.5); Lymphocytes Absolute Auto 900 /uL (1100-4500); Lymphocytes Percent Auto 12.6 % (25-40); Mean Corpuscular HGB Conc 35.5 % (30-36); Mean Corpuscular Hemoglobin 31.3 PG (26-34); Mean Corpuscular Volume 88.2 fL (80-100); Monocytes Absolute Auto 800 /uL (0-900); Monocytes Percent Auto 12.2 % (3-14); Neutrophils Absolute Auto 4600 /uL (1500-7000); Neutrophils Percent Auto 65.7 % (50-75); Platelet Count 186 X10^3/uL (150-400); Red Blood Cell Count 4.45 X10^6/uL (4.5-5.9); Red Cell Distribution Width 13.4 % (11.6-14.8); White Blood Cell Count 6.9 X10^3/uL (4.5-11.0)
[2024-08-09 06:21] LABS: BUN Creatinine Ratio 20.5 (6-22); Blood Urea Nitrogen 15 mg/dL (9-20); Calcium 8.8 mg/dL (8.4-10.2); Carbon Dioxide 24 mmol/L (22-32); Chloride 97 mmol/L (98-107); Estimated Glomerular Filt Rate > 60 mL/min (>60); Glucose 93 mg/dL (80-110); HEMOLYSIS < 15 (0-50); Potassium 3.7 mmol/L (3.4-5.1); Sodium 128 mmol/L (137-145)
--- NOTE | 2024-08-09 07:54 | P.PN_ITS ---
Subjective Subjective Interval history: Chief complaint: Increasing shortness of breath over 1-2 months in a patient with idiopathic pulmonary fibrosis Blood oxy reading 90-92 sent by PCP History of present illness: Patient is a 74 year old male with history of idiopathic pulmonary fibrosis, hypertension hyperlipidemia diabetes [id number]-rggedvphh, CVA, presenting today with increasing shortness of breath. He reports that his pulmonary fibrosis has been relatively stable. He and his flew to [place] about 6 weeks ago since he got back he has had increasing shortness of breath with exertion. No fever or chills has a cough but it has not productive. He does not feel like he has an infection. He denies any sort of orthopnea no lower extremity edema. He is followed by primary care sounds like they are adjusting his medication for bradycardia. Cut his labetalol and half 100 mg twice a day and increase terazosin 2 mg b.i.d. he was noted to be hypertensive here in the emergency department. He was not oxygen dependent but now requiring 2 L of oxygen. 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 On presentation hypoxic, w/o evidence of pneumonia. Placed in observation. Additional history of hypertension hyperlipidemia diabetes [id number], CVA. Findings in the emergency department significant for sodium of 126 (he is on hydrochlorothiazide 25 mg and losartan 100 mg daily which may account for this) chronic fibrotic pattern on CT angio but no pulmonary embolus or infiltrate potassium elevated 5.3 bilirubin liver enzymes are also elevated has a BNP of 580 no significant evidence of fluid overload. He has absolutely no right upper quadrant pain, no nausea or vomiting nothing to suggest a cholelithiasis cholecystitis. Hospital course: 08/09: Overnight maintained Review of systems: Physical exam: Exam Vital Signs (past 8 hours): - 08/09/24 03:19 08/09/24 05:00 Temperature 97.9 F Pulse Rate 48 L Respiratory Rate 20 Blood Pressure 139/77 Pulse Oximetry 94 97 Oxygen Delivery Method Nasal Cannula Oxygen Flow Rate 2 2 Fraction of Inspired Oxygen 28 Fraction of Inspired Oxygen 28 SaO2/FiO2 Ratio 335 Oxygen Delivery Method Nasal Cannula Oxygen Flow Rate [address] scan - chest: Radiologist's impression: No pulmonary embolus. Stable findings of pulmonary fibrosis and right lung subpleural opacity without acute superimposed lung disease visible. Labs 08/09/24 05:40 08/09/24 05:40 Labs: Laboratory Results - last 24 hr 08/08/24 08/08/24 08/08/24 13:54 13:55 14:25 WBC 8.6 RBC 4.53 Hgb 14.1 Hct 39.7 L MCV 87.7 MCH 31.1 MCHC 35.5 RDW 13.4 Plt Count 207 Neut % (Auto) 73.7 Lymph % (Auto) 9.4 L [place] % (Auto) 10.3 Eos % (Auto) 5.2 H Baso % (Auto) 1.4 Neut # (Auto) 6300 Lymph # (Auto) 800 L [place] # (Auto) 900 Eos # (Auto) 500 H Baso # (Auto) 100 PT 14.1 H INR 1.2 Sodium 126 L Potassium 5.3 H Chloride 95 L Carbon Dioxide 18 L BUN 20 Creatinine 0.62 L Estimated GFR > 60 BUN/Creatinine Ratio 32.3 H Glucose 104 Lactate 1.2 Calcium 9.1 Total Bilirubin 2.0 H AST 62 H ALT 27 Alkaline Phosphatase 37 L Troponin I 0.025 NT-Pro-B Natriuret Pep 580 H Total Protein 8.5 H Albumin 4.9 Globulin 3.6 Albumin/Globulin Ratio 1.4 SARS-CoV-2 (PCR) Negative Influenza A (RT-PCR) Flu a negative Influenza B (RT-PCR) Flu b negative RSV (PCR) Negative 08/09/24 05:40 WBC 6.9 RBC 4.45 L Hgb 13.9 Hct 39.2 L MCV 88.2 MCH 31.3 MCHC 35.5 RDW 13.4 Plt Count 186 Neut % (Auto) 65.7 Lymph % (Auto) 12.6 L [place] % (Auto) 12.2 Eos % (Auto) 7.3 H Baso % (Auto) 2.2 H Neut # (Auto) 4600 Lymph # (Auto) 900 L [place] # (Auto) 800 Eos # (Auto) 500 H Baso # (Auto) 100 PT INR Sodium 128 L Potassium 3.7 D Chloride 97 L Carbon Dioxide 24 BUN 15 Creatinine 0.73 Estimated GFR > 60 BUN/Creatinine Ratio 20.5 Glucose 93 Lactate Calcium 8.8 Total Bilirubin AST ALT Alkaline Phosphatase Troponin I NT-Pro-B Natriuret Pep Total Protein Albumin Globulin Albumin/Globulin Ratio SARS-CoV-2 (PCR) Influenza A (RT-PCR) Influenza B (RT-PCR) RSV (PCR) [facility] Medical History Cold feeling Bradycardia Hx of arterial ischemic stroke Pulmonary hypertension Secondhand smoke exposure History of tobacco use BPH w urinary obs/LUTS Nocturia more than twice per night Idiopathic pulmonary fibrosis Diabetic cataract of both eyes Eczema of right hand Hypothyroidism (acquired) Elevated TSH Multiple actinic keratoses Breakdown (mechanical) of other cardiac and vascular devices and implants, initial encounter Vitamin D deficiency Hyperlipidemia Substance abuse (~1967) Stroke (~2016) Measles (~1956) Kidney disease BPH (benign prostatic hyperplasia) Hemorrhoid Diabetes mellitus (~2016) Hypertension Surgical History Anesthesia History of hernia repair (~2005) S/P LASIK surgery (~1997) History of ankle surgery (~1993) Family History Father Hypertension Stroke Mother Kidney disease Brother Kidney disease Social History marital status: number of children: 0 household members: spouse occupational status: previously employed Smoking Status: Former smoker Tobacco: How many years used: 18 alcohol intake: former substance use type: does not use caffeine: Yes Type(s) of exercise: walking frequency: 5-6 times per week duration: 15-30 minutes/day Assessment & Plan Assessment & Plan narrative: Acute respiratory failure with hypoxia in setting of idiopathic pulmonary fibrosis no signs of acute pulmonary pathology. Other findings they suggest acute cor pulmonale with congestive hepatopathy hyponatremia and elevated BNP. We will get an echocardiogram to estimate right ventricular pressures and evaluate to see if there is left ventricular diastolic or systolic dysfunction. 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 Quality VTE Deep Vein Thrombosis/Pulmonary Embolism Present on Admission: No
[2024-08-09] MEDS: METFORMIN XR 500 MG TABLET PO ×2 (08:45→21:23)
[2024-08-09] MEDS: LEVOTHYROXINE 50 MCG TABLET PO (08:46)
[2024-08-09] MEDS: LOSARTAN 50 MG TABLET 100 MG PO (08:46)
[2024-08-09] MEDS: TAMSULOSIN 0.4 MG CAPSULE 0.8 MG PO (08:46)
[2024-08-09] MEDS: ASPIRIN EC 81 MG TABLET PO (08:46)
[2024-08-09] MEDS: FINASTERIDE 5 MG TABLET PO (08:46)
[2024-08-09] MEDS: ENOXAPARIN 40 MG/0.4 ML SYRINGE SUBCUT (08:46)
--- NOTE | 2024-08-09 10:06 | PC.NURSE ---
Assess- Patient is on 2L of O2 and satting in the mid 90s. He is using the urinal at bedside and he denies pain. He has some minimal wheezing in the r.upper lobe. A&Ox4, ate well at breakfast and resting now.
--- NOTE | 2024-08-09 10:34 | DI.ECHO.S_ITS ---
[facility] : : [id number] : [place] : : [id number] : : Phone: [phone] Echocardiogram Report + + :Name: TONIO MANCINI Study Date: 08/09/2024 Height: 66 in : :[facility] ReadingLocation: Weight: 140 lb : : Gender: Male BSA: 1.7 m2 : :: 1950 Age: 74 yrs BP: 139/77 mmHg: :Reason For Study: COR PULMONALE SUSPECTED : :Ordering Physician: KIMBERLEE, : :CARSON AVALSO Performed By: Chio Echeverria : :Referring: CARSON MOHAN MD : + + Interpretation Summary The ejection fraction is estimated to be 60-65%. Diastolic function could not be accurately assessed due to contradictory data. The right ventricle is normal in size and function. There is mild mitral regurgitation. There is mild aortic regurgitation. There is mild tricuspid regurgitation. Pulmonary artery pressures cannot be estimated because of the lack of a measurable TR jet velocity. The ascending aorta is mildly enlarged. Compared to the prior study 07/27/2023, no major change. Procedure: A two-dimensional transthoracic echocardiogram with color flow and Doppler was performed. The study quality was technically adequate. Comparison is made with the echocardiogram of 07/27/2023. The patient was in sinus bradycardia with heart rates between 49-54 bpm during the exam. Left Ventricle: The left ventricle is normal in size and wall thickness. The ejection fraction is estimated to be 60-65%. Diastolic function could not be accurately assessed due to contradictory data. Right Ventricle: The right ventricle is normal in size and function. Atria: The left atrial size is normal. Right atrial size is normal. There is no Doppler evidence for an interatrial shunt. Mitral Valve: There is a flat closure plane of the the mitral valve leaflets. There is mild mitral regurgitation. Aortic Valve: The aortic valve is trileaflet. The aortic valve opens well. There is no aortic valve stenosis. There is mild aortic regurgitation. Tricuspid Valve: The tricuspid valve leaflets are thin and pliable. There is mild tricuspid regurgitation. Pulmonary artery pressures cannot be estimated because of the lack of a measurable TR jet velocity. Pulmonic Valve: The pulmonic valve leaflets are thin and pliable; valve motion is normal. There is mild pulmonic regurgitation. Great Vessels: The aortic root is normal size. The ascending aorta is mildly enlarged. The inferior vena cava was not well visualized. Pericardium/ Pleura There is no pericardial effusion. There is no pleural effusion. MMode/2D Measurements & Calculations LVIDd: 4.4 cm LVOT diam: 2.3 cm LVIDs: 2.9 cm Ao root diam: 3.8 cm FS: 35.4 % asc Aorta Diam: 4.0 cm IVSd: 1.1 cm Ao Arch Diam (Prox Trans): 3.5 cm LVPWd: 0.87 cm LV mejia. diameter/BSA (cm/m^2): 2.6 LV sys. diameter/BSA (cm/m^2): 1.7 LA A2 area: 20.8 cm2 RA long axis: 6.1 cm LA A4 area: 18.5 cm2 RA area: 18.5 cm2 LA length (vol): 5.9 cm RA vol: 47.2 ml LA vol: 55.5 ml RA : 27.5 ml/m2 LA vol index: 32.3 ml/m2 RVD1 (basal): 4.0 cm RVD2 (mid): 3.3 cm TAPSE: 2.2 cm Doppler Measurements & Calculations Ao V2 max: 144.9 cm/sec LVOT Max Gerardo: 93.7 cm/sec Ao V2 mean: 90.8 cm/sec LV V1 max P.5 mmHg Ao max P.4 mmHg LV V1 VTI: 20.5 cm Ao mean P.8 mmHg MELY(I,D): 2.6 cm2 Ao V2 VTI: 31.6 cm MELY(V,D): 2.6 cm2 sev ratio: 0.65 MELY indexed to BSA (cm^2/m^2): 1.5 MV E max gerardo: 62.2 cm/sec TR max gerardo: 290.4 cm/sec MV A max gerardo: 90.5 cm/sec TR max P.7 mmHg MV E/A: 0.69 PA V2 max: 120.5 cm/sec Med Peak E' Gerardo: 8.3 cm/sec PA V2 mean: 70.1 cm/sec E/E' med: 7.5 PA mean P.4 mmHg Lat Peak E' Gerardo: 8.0 cm/sec PA pr(Accel): 43.0 mmHg E/E' lat: 7.8 E/e' average: 7.6 MV dec time: 0.27 sec SV(LVOT): 83.1 ml Qp/Qs: 1.5/1.0 Reading Physician:01:08 PM
--- NOTE | 2024-08-09 12:19 | CM.DANOTE ---
Initial DCP Assessment Visit Note Reviewed EMR and team rounds for status updates. Met with pt/spouse at bedside to introduce self and role, pt was found to be alert/oriented, in no apparent distress, sitting upright in the recliner. He lives independently at baseline with his spouse in their own home here in [place]. She will also transport him home once he's medically cleared for d/c, likely either later this afternoon or tomorrow. No CM d/c assistance/resource needs are identified at this time. Payor: [employer] PCP: Dr. Brito Pt is a 74 year-old M with a hx of idiopathic pulmonary fibrosis, hypertension, diab etes, and CVA, presented to the ED last evening with worsening SOB. He states that he's been having increasing SOB w/exertion for the last 6-weeks. He does not use home O2 at this time, however did require 2LO2 nasal cannula in the ED, and remains on O2 this morning up on the floor. Chest x-ray showed diffuse interstitial lung disease, and will be needing home O2 at d/c. RT to complete home O2 eval this afternoon. His spouse is very attentive and will plan on continuing to provide for his care needs at d/c. DCP will continue to follow and assist with any further evolving needs. Discharge Planning/Care Management CM Discharge Assessment Start: 08/09/24 12:17 Freq: Status: Active Protocol: Document 08/09/24 12:18 DPL (Rec: 08/09/24 12:19 DPL [id number]) Discharge Planning Assessment Assigned Clin Application Specialist MARIAMA Knapp Advance Directives? No Advance Directives on File No History Provided By Patient,Significant Other Has Patient been admitted in last 30 No days? Prior Living Arrangements House Household Members spouse Type of transporation used prior to Drives own vehicle admit Independent with ADL's Yes Is patient alert and oriented? Yes Comment N/A Caregiver for Another No Comment Not on O2 at home baseline. Comment No identified needs at this time. Discharge Plan [facility] Oxygen Therapy Transportation Arrangement Spouse Referrals Initiated None needed Whiteboard Updated in Patient Room with Yes name and ext. # of Clin Application Specialist Review Status In Process Please Provide Date Initial DC 08/09/24 Assessment Was Performed
--- NOTE | 2024-08-09 20:09 | PC.NURSE ---
At ~1950, assisted pt to ambulate to bathroom and back, without supplemental O2; pt had not been on supplemental O2 during the day and was perfusing well. Pt tolerated well, denied dizziness or lightheadedness. When returned to bed and SpO2 monitoring, pt SpO2 was ~70%; instructed pt to breath through nose a few times, but no improvement. Administered 2L O2 NC; SpO2 slowly climbed back to 90-92%. Discussed use of O2 during ambulation with pt. Pt stated understanding. Pt currently resting comfortably, call light within reach, will continue to monitor. Plan of care continues.
[2024-08-09] MEDS: ATORVASTATIN 20 MG TABLET PO (21:23)
[2024-08-10] VITALS: PULSE 56; O2SAT 93
[2024-08-10 05:30] VITALS: BP 143/78; PULSE 52; RESP 18; TEMP 36.3; O2SAT 97
[2024-08-10 08:00] VITALS: BP 156/78; RESP 12; TEMP 36.6; O2SAT 93
[2024-08-10] MEDS: FINASTERIDE 5 MG TABLET PO (08:42)
[2024-08-10] MEDS: METFORMIN XR 500 MG TABLET PO (08:42)
[2024-08-10] MEDS: LEVOTHYROXINE 50 MCG TABLET PO (08:42)
[2024-08-10] MEDS: LOSARTAN 50 MG TABLET 100 MG PO (08:42)
[2024-08-10] MEDS: TAMSULOSIN 0.4 MG CAPSULE 0.8 MG PO (08:42)
[2024-08-10] MEDS: ASPIRIN EC 81 MG TABLET PO (08:42)
[2024-08-10] MEDS: ENOXAPARIN 40 MG/0.4 ML SYRINGE SUBCUT (08:43)
[2024-08-10 09:05] VITALS: O2SAT 93
--- NOTE | 2024-08-10 10:51 | PM.DS.1 ---
History of Present Illness History of Present Illness Chief complaint: blood oxy reading 90-92 sent by PCP Discharge Providers Provider Date of admission: 08/08/24 22:08 Discharge Date: 08/10/24 Primary care physician: Peña Brito DO Discharge provider: Cristhian Galindo MD Summary Hospital Course Discharge Diagnosis: Acute hypoxic respiratory failure Idiopathic pulmonary fibrosis (ILD) Cor pulmonale with pulmonary hypertension BNP 580 and right ventricular systolic pressure 47 on echocardiogram Hospital Course: Chief complaint: Increasing shortness of breath over 1-2 months in a patient with idiopathic pulmonary fibrosis Blood oxy reading 90-92 sent by PCP History of present illness: Patient is a 74 year old male with history of idiopathic pulmonary fibrosis, hypertension hyperlipidemia diabetes [id number], CVA, presenting today with increasing shortness of breath. He reports that his pulmonary fibrosis has been relatively stable. He and his flew to [place] about 6 weeks ago since he got back he has had increasing shortness of breath with exertion. No fever or chills has a cough but it has not productive. He does not feel like he has an infection. He denies any sort of orthopnea no lower extremity edema. He is followed by primary care sounds like they are adjusting his medication for bradycardia. Cut his labetalol and half 100 mg twice a day and increase terazosin 2 mg b.i.d. he was noted to be hypertensive here in the emergency department. He was not oxygen dependent but now requiring 2 L of oxygen. His home O2 was 88% 74 y/o with PMH of idiopathic pulmonary fibrosis, followed by [facility], not on oxygen or current medical management, came today after he became progressively short of breath over the past 1-2 months. On presentation hypoxic, w/o evidence of pneumonia. Placed in observation. Additional history of hypertension hyperlipidemia diabetes [id number], CVA. Findings in the emergency department significant for sodium of 126 (he is on hydrochlorothiazide 25 mg and losartan 100 mg daily which may account for this) chronic fibrotic pattern on CT angio but no pulmonary embolus or infiltrate potassium elevated 5.3 bilirubin liver enzymes are also elevated has a BNP of 580 no significant evidence of fluid overload. He has absolutely no right upper quadrant pain, no nausea or vomiting nothing to suggest a cholelithiasis cholecystitis. Status at Discharge Cognitive/behavioral status at discharge: oriented Functional status at discharge: independent ambulation Time Spent with Patient Time spent: Greater than 30 minutes Exam Vital Signs (past 8 hours): - 08/10/24 05:30 08/10/24 08:00 08/10/24 09:05 Temperature 97.4 F L 97.8 F Pulse Rate 52 L Respiratory Rate 18 12 Blood Pressure 143/78 H 156/78 H Pulse Oximetry 97 93 93 Oxygen Delivery Method Room Air Oxygen Flow Rate 1 1 1 Fraction of Inspired Oxygen 28 SaO2/FiO2 Ratio 335 Oxygen Delivery Method Room Air Oxygen Flow Rate 1 Narrative Exam Narrative: General no acute distress HEENT unremarkable new line neck no JVD Heart rate and rhythm regular no murmurs Lung with diffuse crackles from apices to bases Abdomen benign Extremities no cyanosis clubbing edema Objective Imaging Echo: Radiologist's impression: Interpretation Summary Normal both left and right ventricle size and function. The ejection fraction is 60-65%. Mild tricuspid regurgitation. Right ventricular systolic pressure is estimated to be 47 mmHg plus the clinically estimated CVP which cannot be estimated on this exam. Labs 08/09/24 05:40 08/09/24 05:40 [facility] Medical History Cold feeling Bradycardia Hx of arterial ischemic stroke Pulmonary hypertension Secondhand smoke exposure History of tobacco use BPH w urinary obs/LUTS Nocturia more than twice per night Idiopathic pulmonary fibrosis Diabetic cataract of both eyes Eczema of right hand Hypothyroidism (acquired) Elevated TSH Multiple actinic keratoses Breakdown (mechanical) of other cardiac and vascular devices and implants, initial encounter Vitamin D deficiency Hyperlipidemia Substance abuse (~1967) Stroke (~2016) Measles (~1956) Kidney disease BPH (benign prostatic hyperplasia) Hemorrhoid Diabetes mellitus (~2016) Hypertension Surgical History Anesthesia History of hernia repair (~2005) S/P LASIK surgery (~1997) History of ankle surgery (~1993) Family History Father Hypertension Stroke Mother Kidney disease Brother Kidney disease Social History marital status: number of children: 0 household members: spouse occupational status: previously employed Smoking Status: Former smoker Tobacco: How many years used: 18 alcohol intake: former substance use type: does not use caffeine: Yes Type(s) of exercise: walking frequency: 5-6 times per week duration: 15-30 minutes/day Discharge Assessment & Plan Assessment and Plan Plan of Treatment: Acute respiratory failure with hypoxia in setting of idiopathic pulmonary fibrosis no signs of acute pulmonary pathology. Other findings they suggest acute cor pulmonale with congestive hepatopathy hyponatremia and elevated BNP. We will get an echocardiogram to estimate right ventricular pressures and evaluate to see if there is left ventricular diastolic or systolic dysfunction. For hyponatremia we will hold hydrochlorothiazide ILD - idiopathic - needs home oxygen - consider prednisone with PPI, consult with pulmonology - has follow up with [facility] home care in [place] in 2-3 weeks BPH - Flomax, finasteride DM - metformin, CCD, SS HTN - Losartan - hold hydrochlorothiazide for hyponatremia Hx of CVA - statin, ASA Hypothyroidism - levothyroxine Discharge Plan Discharge Plan Patient Disposition: Home Discharge orders & Medications Prescriptions: Continued (DME) [employer] True Metrix Air Meter See Rx Instructions .Route .MEDSUPPLY Qty: 1 0RF Rx Instructions: Use to test blood sugars daily. (DME) blood-glucose [place]OneTouch Verio Flex [place] [facility] [place]ructions .ROUTE .COMPLEX Qty: 1 0RF Dose Instruction: USE DIRECTED. Rx Instructions: USE DIRECTED. (DME) test strips See Rx Instructions .Route .MEDSUPPLY Qty: 400 3RF Rx Instructions: Use to test blood sugars 4 times daily atorvastatin 20 mg tablet 20 mg PO BEDTIME Qty: 90 3RF (DME) OneTouch Verio test strips Strip See Rx Instructions .ROUTE .MEDSUPPLY Qty: 360 3RF Rx Instructions: check glucose 4 times per day finasteride 5 mg tablet 5 mg PO DAILY Qty: 90 3RF (DME) lancets [OneTouch Delica Plus Lancet] 33 gauge [facility] [place] See Rx Instructions .ROUTE .MEDSUPPLY Qty: 400 3RF Rx Instructions: As directed levothyroxine 50 mcg tablet 50 mcg PO DAILY Qty: 90 1RF losartan 100 mg tablet 100 mg PO DAILY Qty: 90 3RF metformin 500 mg tablet extended release 24 hr 500 mg PO BID Qty: 180 3RF aspirin [Adult Aspirin Regimen] 81 mg tablet,delayed release (DR/EC) 81 mg PO DAILY labetalol 200 mg tablet 200 mg PO BID Qty: 180 3RF tamsulosin 0.4 mg capsule 0.8 mg PO BID terazosin 2 mg capsule 2 mg PO BID tadalafil [Cialis] 5 mg tablet 5 mg PO DAILY Qty: 30 12RF Discontinued hydrochlorothiazide 25 mg tablet 25 mg PO DAILY Qty: 90 1RF Follow up/Referrals: Peña Brito, [Primary Care Provider] - Diet/Activity/Treatments Diet: Diet as Tolerated Visit Report/Discharge Packet Stand Alone Forms: Patient Portal/API, Stroke Signs & Symptoms Discharge Data Primary Care Provider: Peña Brito Attending Provider: Miguel Cash Admit Date/Time: 08/08/24 22:08 Quality VTE Deep Vein Thrombosis/Pulmonary Embolism Present on Admission: No
[2024-08-10 12:00] VITALS: BP 149/78; PULSE 60; RESP 18; TEMP 36.3; O2SAT 93
--- NOTE | 2024-08-10 13:32 | PC.NURSE ---
: Pt having diff voiding this am. Pt states I have a prostate the size of a grapefruit. Dr. Davenport made aware, see orders. Flomax given. Initially went 25mls, bladder scanned 240mls. Pt reports if he gets walking he will be able to void and he did so. Vd 100mls, then tried a second time for 100mls. PVR was 210mls. He is adament about going home. Spouse is with him. Discussed urinary retention potential. He voiced understanding.
--- NOTE | 2024-08-10 15:12 | PC.NURSE ---
Discharge: Pt feels ready to d/c to home. RT has arranged home O2 and will call the company when pt left the hospital, which is now. D/c paperwork completed w/Jaxon DOOLEY. Seen by and he gave pt discharge instructions. Spouse at bedside. Pt d/c to home via auto w/spouse.
== END 2024-08-10 15:15 | disposition home or self-care (01) ==
LOC: ED 18:05 → AC 22:09
PROVIDERS: Emergency Medicine; Admitting Provider Internal Medicine; Emergency Provider Emergency Medicine; PCP Family Medicine; Referring Provider Emergency Medicine; Visit Provider Internal Medicine
DX: J84.112 Idiopathic pulmonary fibrosis (principal); J96.01 Acute respiratory failure with hypoxia; I27.81 Cor pulmonale (chronic); I10 Essential (primary) hypertension; E87.1 Hypo-osmolality and hyponatremia; N40.0 Benign prostatic hyperplasia without lower urinary tract symptoms; R00.1 Bradycardia, unspecified; N13.9 Obstructive and reflux uropathy, unspecified; I27.20 Pulmonary hypertension, unspecified; E11.9 Type 2 diabetes mellitus without complications; E03.9 Hypothyroidism, unspecified; Z79.84 Long term (current) use of oral hypoglycemic drugs; Z87.891 Personal history of nicotine dependence; Z86.73 Personal history of transient ischemic attack (TIA), and cerebral infarction without residual deficits; Z79.890 Hormone replacement therapy
CPT/HCPCS: 0241U; 36415; 71045; 71275; 80048; 80053; 83605; 83880; 84484; 85025; 85610; 93005; 93010; 93306; 94618; 94762; 96372; 99284; 99285; G0378; J1650; Q9967

== ENCOUNTER → 2024-10-25 07:17 | Outpatient (CLI) | payer MEDICARE, SELFPAY ==
[2024-08-08 22:16] VITALS: BMI 22.6
[2024-10-25 08:06] LABS: Add Manual Diff / Slide Review NO; Basophils Absolute Auto 0 /uL (0-100); Basophils Percent Auto 0.4 % (0-2); Eosinophils Absolute Auto 300 /uL (0-450); Eosinophils Percent Auto 3.3 % (2-4); Hematocrit 41.2 % (41-53); Hemoglobin 14.5 g/dL (13.5-17.5); Lymphocytes Absolute Auto 1900 /uL (1100-4500); Lymphocytes Percent Auto 20.7 % (25-40); Mean Corpuscular HGB Conc 35.2 % (30-36); Mean Corpuscular Hemoglobin 31.3 PG (26-34); Mean Corpuscular Volume 88.8 fL (80-100); Monocytes Absolute Auto 900 /uL (0-900); Monocytes Percent Auto 9.9 % (3-14); Neutrophils Absolute Auto 6100 /uL (1500-7000); Neutrophils Percent Auto 65.7 % (50-75); Platelet Count 179 X10^3/uL (150-400); Red Blood Cell Count 4.64 X10^6/uL (4.5-5.9); Red Cell Distribution Width 16.3 % (11.6-14.8); White Blood Cell Count 9.3 X10^3/uL (4.5-11.0)
[2024-10-25 08:16] LABS: Hemoglobin A1C% w Est Avg Glu 5.9 % (4.0-6.0)
[2024-10-25 08:24] LABS: Alanine Aminotransferase 20 IU/L (<50); Albumin 3.9 g/dL (3.5-5.0); Alkaline Phosphatase 42 U/L (38-126); Aspartate Aminotransferase 27 IU/L (17-59); BUN Creatinine Ratio 22.4 (6-22); Bilirubin Total 1.3 mg/dL (0.2-1.3); Blood Urea Nitrogen 19 mg/dL (9-20); Calcium 8.5 mg/dL (8.4-10.2); Carbon Dioxide 27 mmol/L (22-32); Chloride 95 mmol/L (98-107); Cholesterol 160 mg/dL (140-199); Estimated Glomerular Filt Rate > 60 mL/min (>60); Glucose 99 mg/dL (70-99); HDL Cholesterol 75 mg/dL (40-60); HEMOLYSIS < 15 (0-50); LDL Cholesterol Calculated 72 mg/dL (<100); Potassium 3.7 mmol/L (3.4-5.1); Sodium 128 mmol/L (137-145); Total Protein 5.9 g/dL (6.3-8.2); Triglycerides 63 mg/dL (35-150)
== END ==
PROVIDERS: PCP Family Medicine; Referring Provider Family Medicine; Visit Provider Family Medicine
DX: E11.9 Type 2 diabetes mellitus without complications (principal); I10 Essential (primary) hypertension; N28.9 Disorder of kidney and ureter, unspecified
CPT/HCPCS: 36415; 80053; 80061; 83036; 85025

== ENCOUNTER 2024-10-31 08:30 | Outpatient (RCR) | payer MEDICARE, SELFPAY ==
[2024-08-08 22:16] VITALS: BMI 22.6
--- NOTE | 2024-09-26 08:28 | RT ---
educated on acapella and use
== END 2024-10-31 10:30 ==
LOC: PUL 08:30
PROVIDERS: PCP Family Medicine; Referring Provider Internal Medicine Cardiovascular Disease; Visit Provider Internal Medicine Cardiovascular Disease
DX: J84.112 Idiopathic pulmonary fibrosis (principal); I27.81 Cor pulmonale (chronic)
CPT/HCPCS: G0237; G0238

== ENCOUNTER 2024-11-06 02:14 | Inpatient (IN) | payer MEDICARE, SELFPAY ==
[2024-08-08 22:16] VITALS: BMI 22.6
[2024-11-06] VITALS (63 sets, daily range): BP systolic 96–192; BP diastolic 51–88; PULSE 53–122; RESP 14–44; TEMP 31–37.1; O2SAT 52–99; BMI 22.0
--- NOTE | 2024-11-06 02:16 | DI.CT.S_ITS ---
PROCEDURE: CT ANGIO CHEST PE PROTOCOL INDICATIONS: dyspnea TECHNIQUE: After the administration of intravenous contrast, 2 mm thick sections acquired from the pulmonary apices to the posterior costophrenic angles. 3-dimensional maximum intensity projection (MIP) coronal and sagittal reformats were then acquired through the thorax. For radiation dose reduction, the following was used: automated exposure control, adjustment of mA and/or kV according to patient size. COMPARISON: [facility], CT, CT CHEST W CON, 06/17/2023, 8:38. [facility], CR, XR CHEST 1V, 11/06/2024, 2:15. [facility], CT, CT ANGIO CHEST PE PROTOCOL, 08/08/2024, 18:43. FINDINGS: Image quality: Diagnostic. Pulmonary arteries: The main pulmonary trunk is enlarged at 3.8 cm. No filling defects are seen throughout the pulmonary arteries. Lower Neck: No enlarged lymph nodes. Thyroid: No thyroid nodules which require sonographic follow up, per consensus guidelines. Axillae: No enlarged lymph nodes. Chest Wall: Unremarkable. Bones: Age-appropriate bony degenerative changes are seen. Accentuated thoracic kyphosis is seen. Lungs and Pleura: Significant subpleural fibrotic change with honeycombing can be seen. Compared to the 08/08/2024 examination, there is superimposed ground-glass opacities seen throughout, which are largely dependently layering. No pneumothorax or pleural effusions are seen. Heart: Heart size is normal. No pericardial effusion. Thoracic Vessels: No aortic aneurysm. Mediastinum and Sammi: No enlarged lymph nodes. Esophagus: No wall thickening. No hiatal hernia. Upper Abdomen: Calcified granulomas can be seen within the spleen. The visualized portions of the upper abdominal structures are otherwise unremarkable for imaging technique. IMPRESSION: No pulmonary embolus. Significant baseline pulmonary fibrosis with honeycombing can be seen. Superimposed ground-glass opacities can be seen, which are attributed to pulmonary edema, although viral infection is possible. The main pulmonary trunk is mildly enlarged, which is consistent with pulmonary artery hypertension. Additional findings: Prior granulomatous exposure. Note: No significant discrepancy from the preliminary report. Dictated by: Obi Ochoa M.D. on 11/06/2024 at 6:41 Approved by: Obi Ochoa M.D. on 11/06/2024 at 6:45
--- NOTE | 2024-11-06 02:16 | DI.RAD.S_ITS ---
PROCEDURE: XR CHEST 1V INDICATIONS: dyspnea TECHNIQUE: One view of the chest was acquired. COMPARISON: [facility], CT, CT ANGIO CHEST PE PROTOCOL, 11/06/2024, 3:44. [facility], CT, CT ANGIO CHEST PE PROTOCOL, 08/08/2024, 18:43. [facility], CR, XR CHEST 2V, 05/31/2023, 11:21. [facility], CR, XR CHEST 2V, 06/11/2023, 12:54. [facility], CR, XR CHEST 1V, 08/08/2024, 14:07. FINDINGS: Surgical changes and devices: None. Lungs and pleura: Lung volumes are low. Abnormal interstitial prominence can be seen throughout. No pneumothorax or large pleural effusion can be seen. Mediastinum: Mediastinal contours appear normal. Heart size is at the upper limits of normal. Bones and chest wall: No suspicious bony lesions. Age-appropriate bony degenerative changes are seen. Overlying soft tissues appear unremarkable. IMPRESSION: Interstitial prominence is seen throughout. Low lung volumes. This patient has known chronic fibrosis. Superimposed pulmonary edema at is suspected and is better seen on the subsequently performed CT examination. Note: No significant discrepancy from the preliminary report. Dictated by: Obi Ochoa M.D. on 11/06/2024 at 6:37 Approved by: Obi Ochoa M.D. on 11/06/2024 at 6:39
--- NOTE | 2024-11-06 02:16 | ED.SOB ---
HPI - SOB/Dyspnea General Chief Complaint: Shortness of Breath/Dyspnea Stated Complaint: Respiratory Distress Time Seen by Provider: 11/06/24 02:16 History of Present Illness HPI Narrative: Patient is a 74-year-old male with a past medical history of idiopathic pulmonary fibrosis, diabetes, hyperlipidemia, presenting from home for acute respiratory distress according to medics patient was allegedly 15% on room air when they arrived, he normally uses oxygen as needed, states he was on 2 L when they initially presented, at time of evaluation patient tachypneic, was 77% on non-rebreather placed immediately on BiPAP. Patient states that he has been feeling kind of short of breath over the past few days, he is A&O x4. Denies any other symptoms however additional ROS HPI limited secondary to patient's severe dyspnea Related Data Home Medications ?Medication ?Instructions ?Recorded ?Confirmed aspirin 81 mg tablet,delayed 81 mg PO DAILY 11/08/19 11/06/24 release (Adult Aspirin Regimen) tamsulosin 0.4 mg capsule 0.8 mg PO BID 08/08/24 11/06/24 prednisone 20 mg tablet 40 mg PO DAILY 10/24/24 11/06/24 metformin 500 mg tablet,extended 500 mg PO TID 11/01/24 11/06/24 release 24 hr Previous Rx's ?Medication ?Instructions ?Recorded [employer] True Metrix Air Meter #1 ea 10/09/20 blood-glucose meter (OneTouch #1 kit 09/19/21 Verio Flex Meter) test strips #400 ea 12/28/23 blood sugar diagnostic (OneTouch #360 ea 06/10/24 Verio test strips) lancets 33 gauge (OneTouch Delica #400 ea 06/10/24 Plus Lancet) losartan 100 mg tablet 100 mg PO DAILY #90 tabs 06/10/24 labetalol 200 mg tablet 100 mg (1/2 x 200 mg) PO BID #180 08/10/24 tabs furosemide 20 mg tablet 20 mg PO DAILY #90 tabs 09/09/24 terazosin 2 mg capsule 2 mg PO BID #180 caps 09/09/24 levothyroxine 50 mcg tablet 50 mcg PO DAILY #90 tabs 11/02/24 Allergies Allergy/AdvReac Type Severity Reaction Status Date / Time No Known Drug Allergies Allergy Verified 11/06/24 02:15 Review of Systems Review of Systems Narrative: General: Denies fever, chills, weight loss HEENT: Denies headache, eye drainage, eye irritation, head trauma, sore throat, voice change Cardiovascular: Denies any chest pain, palpitations, tachycardia Respiratory: Positive shortness of breath GI/: Denies any abdominal pain, nausea, vomiting, diarrhea, bright red blood per rectum, melanotic stools, urinary frequency, urinary retention, dysuria, hematuria MSK: Denies any joint pain, muscle pains, swelling Skin: Denies any rashes, lesions, discoloration Neuro: Denies any headache, lightheadedness, dizziness, fainting, weakness Psych: Denies SI/HI Patient History Medical History (Updated 11/06/24 @ 04:47 by Hernán Medina DO) Physician orders for life-sustaining treatment (POLST) form indicates patient wish for [id number] status UIP (usual interstitial pneumonitis) Acute hypoxic respiratory failure Cor pulmonale, acute Cold feeling Bradycardia Hx of arterial ischemic stroke Pulmonary hypertension Secondhand smoke exposure History of tobacco use BPH w urinary obs/LUTS Nocturia more than twice per night Diabetic cataract of both eyes Eczema of right hand Hypothyroidism (acquired) Elevated TSH Multiple actinic keratoses Breakdown (mechanical) of other cardiac and vascular devices and implants, initial encounter Vitamin D deficiency Hyperlipidemia Substance abuse (~1967) Stroke (~2016) Measles (~1956) Kidney disease BPH (benign prostatic hyperplasia) Hemorrhoid Diabetes mellitus (~2016) Hypertension Surgical History Anesthesia History of hernia repair (~2005) S/P LASIK surgery (~1997) History of ankle surgery (~1993) Family History Father Hypertension Stroke Mother Kidney disease Brother Kidney disease Social History marital status: number of children: 0 household members: spouse occupational status: previously employed Tobacco: How many years used: 18 alcohol intake: former substance use type: does not use caffeine: Yes Type(s) of exercise: walking frequency: 5-6 times per week duration: 15-30 minutes/day Exam Narrative Exam Narrative: General: Cooperative, well-developed, not in acute distress HEENT: Normocephalic, atraumatic, PERRLA, normal sclera, eyelids normal Neck: Active full range of motion, atraumatic Chest: Normal to inspection, negative crepitus, no overlying erythema ecchymosis Respiratory: Patient extremely dyspneic with conversation, tachypneic, clear breath sounds bilaterally Cardiology: Regular rate rhythm negative gallop, murmur, rubs GI/: No tenderness to palpation, soft, non rigid, normal to inspection, exam deferred MSK: Full active range of motion in all 4 extremities, atraumatic, no tenderness to palpation of any bony prominences Skin: No rashes or lesions noted Neuro: Alert awake oriented x3, moves all 4 extremities spontaneously, cranial nerves intact, able to answer all questions appropriately follows commands appropriately Psych: Cooperative, negative suicidal or homicidal ideations Initial Vital Signs Initial Vital Signs: Vital Signs Temperature 98.7 F 11/06/24 02:17 Pulse Rate 109 H 11/06/24 02:17 Respiratory Rate 44 H 11/06/24 02:17 Blood Pressure 192/88 H 11/06/24 02:17 Pulse Oximetry 77 L 11/06/24 02:17 Oxygen Delivery Method Non -Rebreather 11/06/24 02:17 Course Orders Ordered: ED Orders 11/06/24 02:16 CT angio chest PE protocol Stat XR chest 1V Stat EKG-12 Lead Stat 11/06/24 02:17 Covid-19 + FLU A/B + RSV - PCR Stat Arterial Blood Gas STAT 11/06/24 02:18 BiPAP Ventilatory Support RT PROTOCOL 11/06/24 02:25 Complete Blood Count AUTO DIFF Stat Comprehensive Metabolic Panel Stat Lactate (Lactic Acid) Stat Lipase Stat MAG [Magnesium] Stat NT-proBNP (BNP-Adult 18+) Stat PTT Partial Thromboplastin [place] Stat Prothrombin Time INR Stat Troponin & CK Cardiac Panel Stat 11/06/24 03:03 Blood Culture Stat 11/06/24 03:23 Urinalysis and Microscopic Stat 11/06/24 03:30 Arterial Blood Gas STAT 11/06/24 04:30 Trop I [Troponin I] Stat dexmedeTOMIDine in 0.9 % NaCL (Precedex) 400 mcg in 100 mls @ 3.289 mls/hr IV TITRATE GREGORY; Protocol Last Titration: 11/06/24 04:08 Dose: 0.2 mcg/kg/hr, 3.3 mls/hr Discontinued Medications Furosemide (Furosemide 40 Mg/4 Ml Vial) 40 mg IV NOW ONE Stop: 11/06/24 03:08 Last Admin: 11/06/24 04:01 Dose: 40 mg Magnesium Sulfate (Magnesium Sulfate) 2 gm in 50 mls @ 150 mls/hr IV NOW ONE Stop: 11/06/24 02:38 Last Admin: 11/06/24 03:04 Dose: 150 mls/hr Documented By: Co-signed By: Ceftriaxone Sodium 1,000 mg/ (Sodium Chloride) 100 mls @ 200 mls/hr IV NOW ONE Stop: 11/06/24 02:44 Last Admin: 11/06/24 03:13 Dose: 200 mls/hr Documented By: Doxycycline Hyclate 100 mg/ (Sodium Chloride) 100 mls @ 100 mls/hr IV NOW ONE Stop: 11/06/24 02:44 Last Admin: 11/06/24 04:17 Dose: 100 mls/hr Sodium Chloride (Normal Saline 0.9%) 1,000 mls @ 1,000 mls/hr IV BOLUS ONE Stop: 11/06/24 04:02 Last Admin: 11/06/24 04:18 Dose: Not Given Methylprednisolone (Methylprednisolone 125 Mg/2 Ml Vial) 125 mg IV NOW ONE Stop: 11/06/24 02:20 Last Admin: 11/06/24 02:56 Dose: 125 mg Documented By: Vital Signs Vital signs: Vital Signs - 8 hr 11/06/24 02:17 11/06/24 02:41 11/06/24 04:05 Temperature 98.7 F Pulse Rate 109 H Respiratory Rate 44 H Blood Pressure 192/88 H 192/88 H Pulse Oximetry 77 L Oxygen Delivery Method Non -Rebreather Fraction of Inspired Oxygen 100 90 MDM - SOB/Dyspnea Differential Diagnosis Differential diagnosis: Likely acute exacerbation of chronic obstructive airways disease, congestive heart failure, community acquired pneumonia, pulmonary embolism and other Lab Data 11/06/24 02:25 11/06/24 02:25 Labs: Lab Results 11/06/24 11/06/24 11/06/24 Range/Units 02:25 02:35 03:23 WBC 18.8 H (4.5-11.0) X10^3/uL RBC 4.75 (4.5-5.9) X10^6/uL Hgb 14.8 (13.5-17.5) g/dL Hct 42.1 (41-53) % MCV 88.6 (80-100) fL MCH 31.1 (26-34) PG MCHC 35.1 (30-36) % RDW 16.9 H (11.6-14.8) % Plt Count 212 (150-400) X10^3/uL Neut % (Auto) 90.1 H (50-75) % Lymph % (Auto) 6.1 L (25-40) % [place] % (Auto) 2.7 L (3-14) % Eos % (Auto) 0.7 L (2-4) % Baso % (Auto) 0.4 (0-2) % Neut # (Auto) 42718 H (4043-0363) /uL Lymph # (Auto) 1200 (4429-1715) /uL [place] # (Auto) 500 (0-900) /uL Eos # (Auto) 100 (0-450) /uL Baso # (Auto) 100 (0-100) /uL PT 12.3 (9.4-12.5) SECONDS INR 1.1 (0.9-1.3) APTT 24 L (25.1-36.5) SECONDS ABG Sample Site Right radial ABG pH 7.38 (7.35-7.45) ABG pCO2 36.3 (35-45) mmHg ABG pO2 63 L (80-100) mmHg ABG HCO3 22 L (23-27) mmol/L ABG Total CO2 21 L (23-27) mmol/L ABG O2 Saturation 91 L (95-100) % ABG Base Excess -3.0 L (-2-3) mmol/L Luciano Test Positive O2 Delivery Device Bipap FiO2 % 100.0 % % Pressure Support 10 PEEP or CPAP 5 Sodium 126 L (137-145) mmol/L Potassium 4.9 (3.4-5.1) mmol/L Chloride 94 L (98-107) mmol/L Carbon Dioxide 22 (22-32) mmol/L BUN 24 H (9-20) mg/dL Creatinine 0.85 (0.66-1.25) mg/dL Estimated GFR > 60 (>60) mL/min BUN/Creatinine Ratio 28.2 H (6-22) Glucose 161 H (70-99) mg/dL Lactate 3.6 H (0.7-2.1) mmol/L Calcium 8.6 (8.4-10.2) mg/dL Magnesium 1.7 (1.6-2.3) mg/dL Total Bilirubin 1.6 H (0.2-1.3) mg/dL AST 48 (17-59) IU/L ALT 27 (<50) IU/L Alkaline Phosphatase 47 (38-126) U/L Total Creatine Kinase 55 (55-170) U/L Troponin I 0.051 H (0.01-0.034) ng/mL NT-Pro-B Natriuret Pep 2120 H (<125) pg/mL Total Protein 6.8 (6.3-8.2) g/dL Albumin 4.1 (3.5-5.0) g/dL Globulin 2.7 (1.7-4.1) g/dL Albumin/Globulin Ratio 1.5 (1.0-2.8) Lipase 70 (23-300) U/L Urine Color Yellow Urine Appearance Clear Urine pH 6.0 (4.5-8.0) Ur Specific [place] 1.015 (1.000-1.035) Urine Protein Negative (Negative) Urine Glucose (UA) Negative (Negative) g/dL Urine Ketones Negative (NEGATIVE) Urine Occult Blood Negative (Negative) Urine Nitrate Negative (Negative) Urine Bilirubin Negative (NEGATIVE) Urine Urobilinogen 0.2 (0.2) E.U./dL Ur Leukocyte Esterase Negative (NEGATIVE) Urine RBC None seen (0-5/HPF) Urine WBC None seen (0-5/HPF) Ur Squamous Epith Cells None seen (0-5/HPF) Urine Bacteria None seen (None) Ur Culture Indicated? Cult not indicated Vol Urine Centrifuged 10ml (spun) 11/06/24 Range/Units 03:32 WBC (4.5-11.0) X10^3/uL RBC (4.5-5.9) X10^6/uL Hgb (13.5-17.5) g/dL Hct (41-53) % MCV (80-100) fL MCH (26-34) PG MCHC (30-36) % RDW (11.6-14.8) % Plt Count (150-400) X10^3/uL Neut % (Auto) (50-75) % Lymph % (Auto) (25-40) % [place] % (Auto) (3-14) % Eos % (Auto) (2-4) % Baso % (Auto) (0-2) % Neut # (Auto) (8129-4543) /uL Lymph # (Auto) (5358-2415) /uL [place] # (Auto) (0-900) /uL Eos # (Auto) (0-450) /uL Baso # (Auto) (0-100) /uL PT (9.4-12.5) SECONDS INR (0.9-1.3) APTT (25.1-36.5) SECONDS ABG Sample Site Right radial ABG pH 7.42 (7.35-7.45) ABG pCO2 36.4 (35-45) mmHg ABG pO2 109 H (80-100) mmHg ABG HCO3 24 (23-27) mmol/L ABG Total CO2 22 L (23-27) mmol/L ABG O2 Saturation 98 (95-100) % ABG Base Excess -0.6 (-2-3) mmol/L Luciano Test Positive O2 Delivery Device Bipap FiO2 % 100 % % Pressure Support 10 PEEP or CPAP 5 Sodium (137-145) mmol/L Potassium (3.4-5.1) mmol/L Chloride (98-107) mmol/L Carbon Dioxide (22-32) mmol/L BUN (9-20) mg/dL Creatinine (0.66-1.25) mg/dL Estimated GFR (>60) mL/min BUN/Creatinine Ratio (6-22) Glucose (70-99) mg/dL Lactate (0.7-2.1) mmol/L Calcium (8.4-10.2) mg/dL Magnesium (1.6-2.3) mg/dL Total Bilirubin (0.2-1.3) mg/dL AST (17-59) IU/L ALT (<50) IU/L Alkaline Phosphatase (38-126) U/L Total Creatine Kinase (55-170) U/L Troponin I (0.01-0.034) ng/mL NT-Pro-B Natriuret Pep (<125) pg/mL Total Protein (6.3-8.2) g/dL Albumin (3.5-5.0) g/dL Globulin (1.7-4.1) g/dL Albumin/Globulin Ratio (1.0-2.8) Lipase (23-300) U/L Urine Color Urine Appearance Urine pH (4.5-8.0) Ur Specific [place] (1.000-1.035) Urine Protein (Negative) Urine Glucose (UA) (Negative) g/dL Urine Ketones (NEGATIVE) Urine Occult Blood (Negative) Urine Nitrate (Negative) Urine Bilirubin (NEGATIVE) Urine Urobilinogen (0.2) E.U./dL Ur Leukocyte Esterase (NEGATIVE) Urine RBC (0-5/HPF) Urine WBC (0-5/HPF) Ur Squamous Epith Cells (0-5/HPF) Urine Bacteria (None) Ur Culture Indicated? Vol Urine Centrifuged Imaging Data Chest x-ray: Radiologist's Impression: Preliminary read showing chronic fibrotic changes, appearance of the increased bilateral pulmonary opacities could be an artifact of less than optimal expansion of the lungs and portable technique, however no infiltrate or pneumonitis in either lung can not be ruled out CTA PE: Radiologist's Impression: Preliminary read showing 1. No pulmonary embolism 2. New scattered ground-glass opacities throughout both lungs suggestive of infectious process 3. Chronic fibrotic changes again noted ECG Data Interpretation: EKG interpreted ED physician sinus tachycardia at 102 beats per minute QTC 409, normal axis nonspecific ST changes no STEMI MDM Narrative Medical decision making narrative: 74-year-old male with past medical history of hypertension hypothyroidism diabetes idiopathic pulmonary fibrosis requiring as needed 2 L nasal cannula comes into the ED from home via EMS for evaluation of respiratory distress, according to the patient he has been having some shortness of breath worsening tonight, according to medics he was 15% on 2 L, they state that he got him up to 70 on non-rebreather. At time of initial evaluation patient extremely dyspneic with conversation was placed immediately on BiPAP significant improvement to pulse ox in the 90s. He states he normally runs 85-95%. Additional information was obtained by at bedside, she states that her toxicology supervisor at [facility] (Dr. Hale) was starting patient on mycophenolate and prednisone over the past several months, paste that his symptoms have been getting worse for the past 2 weeks. Therefore 4 days ago it was decided that the patient would stop mycophenolate states he was at 1500 mg at that time states, states he is still currently on prednisone, 30 mg daily. Also verified patient's code status, patient is a do not intubate but okay with CPR. 0245: Patient re-evaluated, his pulse ox is now remaining in the mid 90s, he states that he is feeling extremely anxious states that he does not like having the mask on, Precedex ordered, patient now meeting sepsis criteria given leukocytosis tachycardia and tachypnea, Rocephin doxy ordered, lactate cultures ordered, we will hold off fluid repletion given patient with elevated BNP at 2120, did order 40 mg IV Lasix given patient normally takes 20 mg Lasix daily, patient did have elevated troponin at 0.051, most likely type 2 spilled given patient in acute respiratory distress, hypoxemia, EKG is nonischemic in nature and patient is not complaining of any chest pain 0300: ABG reviewed, pH 7.38, pCO2 36.3, PO2 63, this is on when patient was immediately placed on BiPAP at 100% 0332: Repeat ABG now showing pH 7.42, CO2 36, O2 109, patient has been on BiPAP at 100% 10/5 for proximally 1 hour we will begin to down titrate FiO2 0400: Patient re-evaluated, he is no longer tachypneic, just came back from CT scan stating that he feels significantly better repeat auscultation in bilateral lung still without any signs of wheeze 0504: The patient's management plan was discussed Dr. Raya, who agrees to admit the patient to their service and assumes care of this patient at this time. Full admission orders will be placed by the primary team. Critical Care Time Critical Care Time Critical Care Time: Yes Total Critical Care Time: 35 Attestation: Authorized and Performed by: Hernán Medina DO Total critical care time: Approximately [35] minutes Due to a high probability of clinically significant, life threatening deterioration, the patient required my highest level of preparedness to intervene emergently and I personally spent this critical care time directly and personally managing the patient. This critical care time included obtaining a history; examining the patient; pulse oximetry; ordering and review of studies; arranging urgent treatment with development of a management plan; evaluation of patient's response to treatment; frequent reassessment; and, discussions with other providers. This critical care time was performed to assess and manage the high probability of imminent, life-threatening deterioration that could result in multi-organ failure. It was exclusive of separately billable procedures and treating other patients and teaching time. Please see MDM section and the rest of the note for further information on patient assessment and treatment. Discharge Plan Departure Patient Disposition: Admitted As Inpatient Clinical Impression: Acute hypoxemic respiratory failure, Elevated troponin, Elevated brain natriuretic peptide (BNP) level, Acute exacerbation of idiopathic pulmonary fibrosis, Pneumonia
--- NOTE | 2024-11-06 02:33 | EKG_ITS ---
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
[2024-11-06 02:35] LABS: Add Manual Diff / Slide Review NO; Basophils Absolute Auto 100 /uL (0-100); Basophils Percent Auto 0.4 % (0-2); Eosinophils Absolute Auto 100 /uL (0-450); Eosinophils Percent Auto 0.7 % (2-4); Hematocrit 42.1 % (41-53); Hemoglobin 14.8 g/dL (13.5-17.5); Lymphocytes Absolute Auto 1200 /uL (1100-4500); Lymphocytes Percent Auto 6.1 % (25-40); Mean Corpuscular HGB Conc 35.1 % (30-36); Mean Corpuscular Hemoglobin 31.1 PG (26-34); Mean Corpuscular Volume 88.6 fL (80-100); Monocytes Absolute Auto 500 /uL (0-900); Monocytes Percent Auto 2.7 % (3-14); Neutrophils Absolute Auto 16900 /uL (1500-7000); Neutrophils Percent Auto 90.1 % (50-75); Platelet Count 212 X10^3/uL (150-400); Red Blood Cell Count 4.75 X10^6/uL (4.5-5.9); Red Cell Distribution Width 16.9 % (11.6-14.8); White Blood Cell Count 18.8 X10^3/uL (4.5-11.0)
[2024-11-06 02:40] LABS: Allen Test for ABG Passed? Positive; Blood Gas Collection Site Right Radial; Delivery System BiPAP; HCO3 ABG 22 mmol/L (23-27); Oxygen Saturation ABG 91 % (95-100); PCO2 ABG 36.3 mmHg (35-45); PEEP 5; PO2 ABG 63 mmHg (80-100); Pressure Support 10; TCO2 ABG 21 mmol/L (23-27); pH ABG 7.38 (7.35-7.45)
--- NOTE | 2024-11-06 02:47 | RT ---
Patient brought in by EMS on 100% NRB & NC. Resp distress noted and placed on BIPAP w/ initial settings of 10 / 5 & 100% Fio2 . ABG done and will continue with settings for now.
[2024-11-06 02:48] LABS: INR 1.1 (0.9-1.3); Prothrombin Time 12.3 SECONDS (9.4-12.5)
[2024-11-06 02:50] LABS: PTT Partial Thromboplastin Tim 24 SECONDS (25.1-36.5)
[2024-11-06 02:52] LABS: Lactate (Lactic Acid) 3.6 mmol/L (0.7-2.1)
[2024-11-06 02:53] LABS: Magnesium 1.7 mg/dL (1.6-2.3)
[2024-11-06 02:54] LABS: Alanine Aminotransferase 27 IU/L (<50); Albumin 4.1 g/dL (3.5-5.0); Albumin Globulin Ratio 1.5 (1.0-2.8); Alkaline Phosphatase 47 U/L (38-126); Aspartate Aminotransferase 48 IU/L (17-59); BUN Creatinine Ratio 28.2 (6-22); Bilirubin Total 1.6 mg/dL (0.2-1.3); Blood Urea Nitrogen 24 mg/dL (9-20); Calcium 8.6 mg/dL (8.4-10.2); Carbon Dioxide 22 mmol/L (22-32); Chloride 94 mmol/L (98-107); Creatine Kinase 55 U/L (55-170); Estimated Glomerular Filt Rate > 60 mL/min (>60); Globulin 2.7 g/dL (1.7-4.1); Glucose 161 mg/dL (70-99); Lipase 70 U/L (23-300); Potassium 4.9 mmol/L (3.4-5.1); Sodium 126 mmol/L (137-145); Total Protein 6.8 g/dL (6.3-8.2)
[2024-11-06 02:55] LABS: HEMOLYSIS 73 (0-50)
[2024-11-06] MEDS: methylPREDNISolone 125 MG/2 ML VIAL IV ×4 (02:56→23:50)
[2024-11-06] MEDS: MAGNESIUM SULFATE 2 GM/50 ML PIGGYBACK IV (03:04)
[2024-11-06 03:06] LABS: NT-proBNP (BNP-Adult 18+) 2120 pg/mL (<125); Troponin I 0.051 ng/mL (0.01-0.034)
[2024-11-06] MEDS: cefTRIAXone 1,000 MG in SODIUM CHLORIDE 0.9% 100 ML 200 MG IV (03:13)
[2024-11-06] MEDS: dexmedeTOMIDine in 0.9 % NaCL 400 MCG/100 ML PLAST..BAG IV (03:25)
[2024-11-06 03:32] LABS: Appearance Urine UA CLEAR; Bilirubin Urine UA NEGATIVE (NEGATIVE); Color Urine UA YELLOW; Glucose Urine UA NEGATIVE (Negative); Ketones Urine UA NEGATIVE (NEGATIVE); Leukocyte Esterase Urine UA NEGATIVE (NEGATIVE); Nitrite Urine UA NEGATIVE (Negative); Occult Blood Urine UA NEGATIVE (Negative); Protein Urine UA NEGATIVE (Negative); Specific Gravity Urine UA 1.015 (1.000-1.035); Urobilinogen Urine UA 0.2 E.U./dL (0.2)
[2024-11-06 03:37] LABS: Allen Test for ABG Passed? Positive; Base Excess ABG -0.6 mmol/L (-2-3); Blood Gas Collection Site Right Radial; Delivery System BiPAP; HCO3 ABG 24 mmol/L (23-27); Oxygen Saturation ABG 98 % (95-100); PCO2 ABG 36.4 mmHg (35-45); PEEP 5; PO2 ABG 109 mmHg (80-100); Pressure Support 10; TCO2 ABG 22 mmol/L (23-27); pH ABG 7.42 (7.35-7.45)
[2024-11-06 03:45] LABS: Bacteria Urine None Seen; Culture Indicated Urine Cult Not Indicated; RBC Urine None Seen (0-5/HPF); Squamous Epithelial Cell Urine None Seen (0-5/HPF); Urine Volume 10mL (spun); WBC Urine None Seen (0-5/HPF)
[2024-11-06] MEDS: FUROSEMIDE 40 MG/4 ML VIAL IV (04:01)
[2024-11-06 04:04] LABS: Reflexed Lactate in 2 Hours Y
--- NOTE | 2024-11-06 04:04 | RT ---
Transported to CT & back to ED w/o incident. Patient tolerated well. Titrated down to 90%
[2024-11-06] MEDS: DOXYCYCLINE 100 MG in SODIUM CHLORIDE 0.9% 100 ML IV (04:17)
[2024-11-06 04:30] LABS: Influenza A - CEPHEID Flu A NEGATIVE (NEGATIVE); Influenza B - CEPHEID Flu B NEGATIVE (NEGATIVE); Respiratory Syncytial Virus Negative (Negative)
[2024-11-06 04:31] LABS: COVID-19 CEPHEID 4-PLEX PCR Negative (Negative)
--- NOTE | 2024-11-06 04:33 | PC.NURSE ---
Hx: Cystic Fibrosis
--- NOTE | 2024-11-06 05:10 | PM.HP.1 ---
History of Present Illness History of Present Illness Chief complaint: Respiratory Distress Narrative: 74M with PMH of UIP with chronic hypoxic respiratory failure, ischemic CVA, pulmonary HTN, past TUD, BPH with LUTS, DM2, HTN, hyperlipidemia, hypothyroidism presents from home for acute respiratory distress according to medics patient was allegedly 15% on room air when they arrived, he normally uses oxygen as needed, states he was on 2 L when they initially presented, at time of evaluation patient tachypneic, was 77% on non-rebreather placed immediately on BiPAP. Patient states that he has been feeling kind of short of breath over the past few days. He had no other prodromal or associated symptoms. Flu/COVID/RSV negative. BNP was mildly elevated at 2120 and troponin minimally elevated at 0.05. In ED, he was given IV steroids, nebulizer therapy, Lasix. CTA chest showed no PE but showed bilateral GGO and chronic fibrosis. Per ED attending, additional information was obtained by at bedside, she states that her welder helper at [place] (Dr. Hale) was starting patient on mycophenolate and prednisone over the past several months, paste that his symptoms have been getting worse for the past 2 weeks. Therefore 4 days ago it was decided that the patient would stop mycophenolate states he was at 1500 mg at that time states, states he is still currently on prednisone, 30 mg daily. Initial ABG: pH 7.38, pCO2 36.3, PO2 63. Patient was placed on BiPAP at 100% 10/5. Repeat ABG 1 hour later: pH 7.42, CO2 36, O2 109. Patient is DNR/DNI but ok for bipap. [facility] Medical History Physician orders for life-sustaining treatment (POLST) form indicates patient wish for [id number] status UIP (usual interstitial pneumonitis) Acute hypoxic respiratory failure Cor pulmonale, acute Cold feeling Bradycardia Hx of arterial ischemic stroke Pulmonary hypertension Secondhand smoke exposure History of tobacco use BPH w urinary obs/LUTS Nocturia more than twice per night Diabetic cataract of both eyes Eczema of right hand Hypothyroidism (acquired) Elevated TSH Multiple actinic keratoses Breakdown (mechanical) of other cardiac and vascular devices and implants, initial encounter Vitamin D deficiency Hyperlipidemia Substance abuse (~1967) Stroke (~2017) Measles (~1956) Kidney disease BPH (benign prostatic hyperplasia) Hemorrhoid Diabetes mellitus (~2016) Hypertension Surgical History [place] teeth removed (10/06/97) Anesthesia History of hernia repair (~2005) S/P LASIK surgery (~1997) History of ankle surgery (~1993) Family History Father Hypertension Stroke Mother Kidney disease Brother Kidney disease Social History marital status: number of children: 0 household members: significant other occupational status: previously employed Tobacco: How many years used: 18 alcohol intake: former substance use type: does not use caffeine: Yes Type(s) of exercise: walking frequency: 5-6 times per week duration: 15-30 minutes/day Meds Home Medications and Allergies Home Medications ?Medication ?Instructions ?Recorded ?Confirmed ?Type aspirin 81 mg tablet,delayed 81 mg PO DAILY 11/08/19 11/06/24 History release (Adult Aspirin Regimen) [employer] True Metrix Air Meter #1 ea 10/09/20 11/06/24 Rx blood-glucose meter (OneTouch #1 kit 09/19/21 11/06/24 Rx Verio Flex Meter) test strips #400 ea 12/28/23 11/06/24 Rx blood sugar diagnostic (OneTouch #360 ea 06/10/24 11/06/24 Rx Verio test strips) lancets 33 gauge (OneTouch Delica #400 ea 06/10/24 11/06/24 Rx Plus Lancet) losartan 100 mg tablet 100 mg PO DAILY #90 tabs 06/10/24 11/06/24 Rx tamsulosin 0.4 mg capsule 0.8 mg PO BID 08/08/24 11/06/24 History labetalol 200 mg tablet 100 mg (1/2 x 200 mg) PO BID #180 08/10/24 11/06/24 Rx tabs furosemide 20 mg tablet 20 mg PO DAILY #90 tabs 09/09/24 11/06/24 Rx terazosin 2 mg capsule 2 mg PO BID #180 caps 09/09/24 11/06/24 Rx prednisone 20 mg tablet 40 mg PO DAILY 10/24/24 11/06/24 History metformin 500 mg tablet,extended 500 mg PO TID 11/01/24 11/06/24 History release 24 hr levothyroxine 50 mcg tablet 50 mcg PO DAILY #90 tabs 11/02/24 11/06/24 Rx Allergies Allergy/AdvReac Type Severity Reaction Status Date / Time No Known Drug Allergies Allergy Verified 11/06/24 02:15 Review of Systems Review of Systems Narrative: Per HPI. Rest of 10-system review negative. Exam Vital Signs (past 8 hours): - 11/06/24 02:16 11/06/24 02:17 11/06/24 02:20 Temperature 98.7 F Pulse Rate 122 H 109 H Respiratory Rate 44 H Blood Pressure 192/88 H 192/88 H Pulse Oximetry 52 L 77 L Oxygen Delivery Method Non -Rebreather Fraction of Inspired Oxygen 11/06/24 02:20 11/06/24 02:30 11/06/24 02:41 Temperature Pulse Rate 112 H 105 H Respiratory Rate 40 H 37 H Blood Pressure 192/88 H Pulse Oximetry 73 L 95 Oxygen Delivery Method Fraction of Inspired Oxygen 100 11/06/24 03:00 11/06/24 03:30 11/06/24 03:50 Temperature Pulse Rate 101 H 93 H 95 H Respiratory Rate 29 H 28 H 30 H Blood Pressure Pulse Oximetry 95 96 96 Oxygen Delivery Method Fraction of Inspired Oxygen 11/06/24 03:50 11/06/24 03:59 11/06/24 03:59 Temperature Pulse Rate 98 H Respiratory Rate 14 Blood Pressure 103/51 L 103/59 L Pulse Oximetry 96 Oxygen Delivery Method Fraction of Inspired Oxygen 11/06/24 04:00 11/06/24 04:00 11/06/24 04:05 Temperature Pulse Rate 97 H Respiratory Rate 26 H Blood Pressure 105/60 Pulse Oximetry 96 Oxygen Delivery Method BiPAP Fraction of Inspired Oxygen 90 11/06/24 04:30 11/06/24 04:30 Temperature Pulse Rate 83 Respiratory Rate 28 H Blood Pressure 110/61 Pulse Oximetry 97 Oxygen Delivery Method BiPAP Fraction of Inspired Oxygen Fraction of Inspired Oxygen 90 Oxygen Delivery Method BiPAP Narrative Exam Narrative: Patient was evaluated entirely through 2-way audio/video telemedicine with RN assistance in exam. Physician was not present at beside in person at any time for this evaluation. Consent for telemedicine obviously obtained from patient. Const Other: On Bipap, Awake, Alert, NAD. Pleasant, cooperative. HENMT Other: Bipap mask on Eyes Other: anicteric, conjunctiva clear Resp Other: Coarse but good excursions, air movement. No wheezing Cardio Other: RRR with possible KRISTA vs coarse BS GI Other: S/NT/ND/+BS Skin Other: No rashes or bruising noted Neuro Other: normal speech, symmetric facial movement Extrem Other: No edema BLE Psych Other: Normal mood, appropriate affect Objective Imaging CT scan - chest: Radiologist's impression: CTA PE: Radiologist's Impression: Preliminary read showing 1. No pulmonary embolism 2. New scattered ground-glass opacities throughout both lungs suggestive of infectious process 3. Chronic fibrotic changes again noted Labs 11/06/24 02:25 11/06/24 02:25 Labs: Laboratory Results - last 24 hr 11/06/24 11/06/24 11/06/24 02:25 02:35 03:23 WBC 18.8 H RBC 4.75 Hgb 14.8 Hct 42.1 MCV 88.6 MCH 31.1 MCHC 35.1 RDW 16.9 H Plt Count 212 Neut % (Auto) 90.1 H Lymph % (Auto) 6.1 L Stephens % (Auto) 2.7 L Eos % (Auto) 0.7 L Baso % (Auto) 0.4 Neut # (Auto) 12332 H Lymph # (Auto) 1200 Stephens # (Auto) 500 Eos # (Auto) 100 Baso # (Auto) 100 PT 12.3 INR 1.1 APTT 24 L ABG Sample Site Right radial ABG pH 7.38 ABG pCO2 36.3 ABG pO2 63 L ABG HCO3 22 L ABG Total CO2 21 L ABG O2 Saturation 91 L ABG Base Excess -3.0 L Luciano Test Positive O2 Delivery Device Bipap FiO2 % 100.0 % Pressure Support 10 PEEP or CPAP 5 Sodium 126 L Potassium 4.9 Chloride 94 L Carbon Dioxide 22 BUN 24 H Creatinine 0.85 Estimated GFR > 60 BUN/Creatinine Ratio 28.2 H Glucose 161 H Lactate 3.6 H Calcium 8.6 Magnesium 1.7 Total Bilirubin 1.6 H AST 48 ALT 27 Alkaline Phosphatase 47 Total Creatine Kinase 55 Troponin I 0.051 H NT-Pro-B Natriuret Pep 2120 H Total Protein 6.8 Albumin 4.1 Globulin 2.7 Albumin/Globulin Ratio 1.5 Lipase 70 Urine Color Yellow Urine Appearance Clear Urine pH 6.0 Ur Specific [place] 1.015 Urine Protein Negative Urine Glucose (UA) Negative Urine Ketones Negative Urine Occult Blood Negative Urine Nitrate Negative Urine Bilirubin Negative Urine Urobilinogen 0.2 Ur Leukocyte Esterase Negative Urine RBC None seen Urine WBC None seen Ur Squamous Epith Cells None seen Urine Bacteria None seen Ur Culture Indicated? Cult not indicated Vol Urine Centrifuged 10ml (spun) SARS-CoV-2 (PCR) Influenza A (RT-PCR) Influenza B (RT-PCR) RSV (PCR) 11/06/24 11/06/24 03:32 03:40 WBC RBC Hgb Hct MCV MCH MCHC RDW Plt Count Neut % (Auto) Lymph % (Auto) Stephens % (Auto) Eos % (Auto) Baso % (Auto) Neut # (Auto) Lymph # (Auto) Stephens # (Auto) Eos # (Auto) Baso # (Auto) PT INR APTT ABG Sample Site Right radial ABG pH 7.42 ABG pCO2 36.4 ABG pO2 109 H ABG HCO3 24 ABG Total CO2 22 L ABG O2 Saturation 98 ABG Base Excess -0.6 Luciano Test Positive O2 Delivery Device Bipap FiO2 % 100 % Pressure Support 10 PEEP or CPAP 5 Sodium Potassium Chloride Carbon Dioxide BUN Creatinine Estimated GFR BUN/Creatinine Ratio Glucose Lactate Calcium Magnesium Total Bilirubin AST ALT Alkaline Phosphatase Total Creatine Kinase Troponin I NT-Pro-B Natriuret Pep Total Protein Albumin Globulin Albumin/Globulin Ratio Lipase Urine Color Urine Appearance Urine pH Ur Specific [place] Urine Protein Urine Glucose (UA) Urine Ketones Urine Occult Blood Urine Nitrate Urine Bilirubin Urine Urobilinogen Ur Leukocyte Esterase Urine RBC Urine WBC Ur Squamous Epith Cells Urine Bacteria Ur Culture Indicated? Vol Urine Centrifuged SARS-CoV-2 (PCR) Negative Influenza A (RT-PCR) Flu a negative Influenza B (RT-PCR) Flu b negative RSV (PCR) Negative Assessment & Plan Assessment and plan (1) Acute exacerbation of idiopathic pulmonary fibrosis: Status: Acute (2) Elevated brain natriuretic peptide (BNP) level: Status: Acute (3) Elevated troponin: Status: Acute (4) Acute hypoxemic respiratory failure: Status: Acute (5) UIP (usual interstitial pneumonitis): Status: Acute (6) Acute hyponatremia: Status: Acute Assessment & Plan narrative: 1. Acute on chronic hypoxic respiratory failure d/t chronic idiopathic pulmonary fibrosis (usual interstitial pneumonitis) and mild congestive heart failure (type/severity unknown, likely diastolic), POA 2. Type 2 NSTEMI d/t #1, POA 3. Leucocytosis likely due to chronic steroid therapy, no infectious source found, respiratory viral panel negative, POA 4. Acute hyponatremia, likely d/t #1, POA 5. DM2, chronic 6. BPH with LUTS 7. HTN, hyperlipidemia, hypothyroidism Plan: 1. Admit inpatient, ICU, telemetry 2. Continue IV steroids if not improving oxygenation - Solumedrol 60 IV q12h 3. PPI 4. serial troponin 5. Check A1c, TSH, echocardiogram 6. Day team to consult pulmonary 7. Daily BMP, CBC 8. Resume ASA 81, BB, TRT, ARB, Flomax, terazosin 9. Hold metformin. SSI 10. Diabetic diet 11. Bipap, titrate per protocol to SaO2 >92% Code: DNR/DNI DVT prophylaxis: LMWH Time-Based Coding :: 50 min spent with patient and on the chart (including review of chart, obtaining history, exam, reviewing outside data, placing orders, documenting exam and treatment plan, and counseling patient) on 11/06/2024.
--- NOTE | 2024-11-06 06:09 | RT ---
Transported patient on BIPAP to ICU 230 w/o incident. Dropped Fio2 to 65% once settled in room.
[2024-11-06] MEDS: PANTOPRAZOLE DR 40 MG TABLET PO (07:20)
[2024-11-06] MEDS: LEVOTHYROXINE 50 MCG TABLET PO (07:20)
[2024-11-06] MEDS: INSULIN LISPRO 100 UNIT/ML 3ML VIAL SUBCUT ×4 (08:20→20:52)
[2024-11-06 09:00] LABS: Lactate 2HR (Lactic Acid Rflx) 1.3 mmol/L (0.7-2.1)
[2024-11-06] MEDS: LABETALOL 100 MG TABLET PO ×2 (09:12→20:53)
[2024-11-06] MEDS: TERAZOSIN 1 MG CAPSULE 2 MG PO ×2 (09:12→20:53)
[2024-11-06] MEDS: ASPIRIN EC 81 MG TABLET PO (09:12)
[2024-11-06 09:13] LABS: Hemoglobin A1C% w Est Avg Glu 5.9 % (4.0-6.0)
[2024-11-06] MEDS: LOSARTAN 50 MG TABLET 100 MG PO (09:13)
[2024-11-06] MEDS: TAMSULOSIN 0.4 MG CAPSULE 0.8 MG PO ×2 (09:13→20:53)
[2024-11-06] MEDS: ENOXAPARIN 40 MG/0.4 ML SYRINGE SUBCUT (09:13)
[2024-11-06 09:31] LABS: TSH w/ Reflex to FT4 3.12 uIU/mL (0.47-4.68)
[2024-11-06 09:36] LABS: MRSA (Nasal) PCR NOT DETECTED (Not Detect)
[2024-11-06 09:46] LABS: Troponin I 0.177 ng/mL (0.01-0.034)
--- NOTE | 2024-11-06 11:17 | P.HP_ITS ---
History of Present Illness History of Present Illness Date Patient Seen: 11/06/24 Chief complaint: Respiratory Distress Narrative: Chief complaint: Acute dyspnea with acute on chronic hypoxic respiratory failure 3 weeks after starting mycophenolate for worsening interstitial pulmonary fibrosis Dr. Geoffrey Munguia History of present illness: 11/06/2024: 74M with PMH of UIP with chronic hypoxic respiratory failure, ischemic CVA, pulmonary HTN, past TUD, BPH with LUTS, DM2, HTN, hyperlipidemia, hypothyroidism presents from home for acute respiratory distress according to medics patient was allegedly 15% on room air when they arrived, he normally uses oxygen as needed, states he was on 2 L when they initially presented, at time of evaluation patient tachypneic, was 77% on non-rebreather placed immediately on BiPAP. Patient states that he has been feeling kind of short of breath over the past few days. He had no other prodromal or associated symptoms. Flu/COVID/RSV negative. BNP was mildly elevated at 2120 and troponin minimally elevated at 0.05. In ED, he was given IV steroids, nebulizer therapy, Lasix. CTA chest showed no PE but showed bilateral ground-glass opacities parenchymal infiltrates and honeycomb emphysema changes superimposed on chronic fibrosis. Per ED attending, additional information was obtained by at bedside, she states that her rougher machine operator at [place] (Dr. Hale) was starting patient on mycophenolate and prednisone over the past several months, paste that his symptoms have been getting worse for the past 2 weeks. Therefore 4 days ago it was decided that the patient would stop mycophenolate states he was at 1500 mg at that time states, states he is still currently on prednisone, 30 mg daily. Initial ABG: pH 7.38, pCO2 36.3, PO2 63. Patient was placed on BiPAP at 100% /. Repeat ABG 1 hour later: pH 7.42, CO2 36, O2 109. Patient is DNR/DNI but ok for bipap. Past medical history, past surgical history, social history, family history, see bottom of the note Hospital course: 11/06: Was able to weaned off of BiPAP overnight and is now on high-flow nasal cannula oxygen discussed with patient and concerns for number of etiologies for the clinical and radiographic worsening of his pulmonary function and anatomy including potential for opportunistic infections such as Pneumocystis, CMV, Aspergillus. Given the severe hypoxia and the timeline for PCP empiric Bactrim and steroids were added today, however our capacity at this facility to diagnose and treat opportunistic infections is limited. Transfer request for were put out to [facility] where his rougher machine operator Dr. Rowley has privileges to consult and [facility] for escalation of care to include pulmonology and Infectious Disease Review of systems: No abdominal pain nausea vomiting diarrhea No urinary symptom No paresthesia paresis Physical exam: Generally athletic and fit appearing elderly gentleman acutely ill however just transitioned from BiPAP to high-flow nasal cannula oxygen at the time of my examination HEENT Neck 3 cm JVD Heart rate and rhythm regular heart is hyperdynamic with heave Lungs have markedly diminished vesicular breath sounds and markedly shortened respiratory phases Abdomen nondistended Extremities no edema Neurologic was nonfocal Objective laboratory and imaging please see bottom of the note: Assessment and plan: Acute on chronic hypoxic respiratory failure in background setting of progressive idiopathic pulmonary fibrosis attempt to retard progression with mycophenolate requiring BiPAP and transitioned to high-flow oxygen * Extensive diffuse ground-glass parenchymal infiltrates troubling in setting of acute hypoxic respiratory failure * Possible rapid progression of idiopathic pulmonary fibrosis despite attempts to retard progression * Possible infectious etiology including opportunistic infections consider PCP CMV aspergillus * Initiated on doxycycline and high-dose IV steroids we will escalate IV steroids further and try to obtain sputum for PCP * Transfer request referral to either [facility] where patient's rougher machine operator has privileges and can be at tomorrow or to [facility] for higher level of care * Patient is do not resuscitate but we will permit BiPAP (this is a very cogent quality of life decision for this patient given his progressive and probably terminal condition) * Elevated BNP and slight elevation troponin are probably due to acute on chronic cor pulmonale may technically be a demand perfusion mismatch (non STEMI type 2) given an initial treatment of Lasix 40 mg x 1 previous echocardiogram demonstrate a pulmonary artery pressure of 47 with normal left ventricular systolic function, repeat echocardiogram pending Type 2 diabetes oral medication * Hold oral medication for now * Sliding scale insulin as needed DVT prophylaxis * Enoxaparin Code status: * Do not resuscitate [facility] Medical History Physician orders for life-sustaining treatment (POLST) form indicates patient wish for [id number] status UIP (usual interstitial pneumonitis) Acute hypoxic respiratory failure Cor pulmonale, acute Cold feeling Bradycardia Hx of arterial ischemic stroke Pulmonary hypertension Secondhand smoke exposure History of tobacco use BPH w urinary obs/LUTS Nocturia more than twice per night Diabetic cataract of both eyes Eczema of right hand Hypothyroidism (acquired) Elevated TSH Multiple actinic keratoses Breakdown (mechanical) of other cardiac and vascular devices and implants, initial encounter Vitamin D deficiency Hyperlipidemia Substance abuse (~1967) Stroke (~2016) Measles (~1956) Kidney disease BPH (benign prostatic hyperplasia) Hemorrhoid Diabetes mellitus (~2016) Hypertension Surgical History [place] teeth removed (10/06/97) Anesthesia History of hernia repair (~2005) S/P LASIK surgery (~1997) History of ankle surgery (~1993) Family History Father Hypertension Stroke Mother Kidney disease Brother Kidney disease Social History marital status: number of children: 0 household members: significant other occupational status: previously employed Tobacco: How many years used: 18 alcohol intake: former substance use type: does not use caffeine: Yes Type(s) of exercise: walking frequency: 5-6 times per week duration: 15-30 minutes/day Meds Home Medications and Allergies Home Medications ?Medication ?Instructions ?Recorded ?Confirmed ?Type aspirin 81 mg tablet,delayed 81 mg PO DAILY 11/08/19 0 11/06/24 History release (Adult Aspirin Regimen) [employer] True Metrix Air Meter #1 ea 10/09/20 11/06/24 R x blood-glucose meter (IngenicoTouch #1 kit 09/19/21 11/06/24 Rx Verio Flex Meter) test strips #400 ea 12/28/23 11/06/24 Rx blood sugar diagnostic (OneTouch #360 ea 06/10/2410/23 Rx Verio test strips) lancets 33 gauge (OneTouch Delica #400 ea 06/10/24 Rx Plus Lancet) losartan 100 mg tablet 100 mg PO DAILY #90 tabs 11/06/24 Rx tamsulosin 0.4 mg capsule 0.8 mg PO BID 08/08/2411/06 History labetalol 200 mg tablet 100 mg (1/2 x 200 mg) PO BID #180 08/10/24 11/06/24 Rx tabs furosemide 20 mg tablet 20 mg PO DAILY #90 tabs 08/2311/06/24 Rx terazosin 2 mg capsule 2 mg PO BID #180 caps 11/06/24 Rx prednisone 20 mg tablet 40 mg PO DAILY 10/24/2410/23 History metformin 500 mg tablet,extended 500 mg PO TID 5 11/06/24 History release 24 hr levothyroxine 50 mcg tablet 50 mcg PO DAILY #90 tabs 0 11/02/24 11/06/24 Rx Allergies Allergy/AdvReac Type Severity Reaction Status Date / Time No Known Drug Allergies Allergy Verified 11/06/24 02:15 Exam Vital Signs (past 8 hours): - 11/06/24 03:30 11/06/24 03:50 11/06/24 03:50 Temperature Pulse Rate 93 H 95 H Respiratory Rate 28 H 30 H Blood Pressure 103/51 L Pulse Oximetry 96 96 Oxygen Delivery Method Fraction of Inspired Oxygen 11/06/24 03:59 11/06/24 03:59 11/06/24 04:00 Temperature Pulse Rate 98 H 97 H Respiratory Rate 14 26 H Blood Pressure 103/59 L Pulse Oximetry 96 96 Oxygen Delivery Method BiPAP Fraction of Inspired Oxygen 11/06/24 04:00 11/06/24 04:05 11/06/24 04:30 Temperature Pulse Rate Respiratory Rate Blood Pressure 105/60 110/61 Pulse Oximetry Oxygen Delivery Method Fraction of Inspired Oxygen 90 11/06/24 04:30 11/06/24 05:00 11/06/24 05:00 Temperature Pulse Rate 83 79 Respiratory Rate 28 H 28 H Blood Pressure 107/64 Pulse Oximetry 97 97 Oxygen Delivery Method BiPAP BiPAP Fraction of Inspired Oxygen 11/06/24 05:30 11/06/24 05:30 11/06/24 06:02 Temperature Pulse Rate 93 H 80 Respiratory Rate 31 H 25 H Blood Pressure 115/73 119/73 Pulse Oximetry 96 98 Oxygen Delivery Method Fraction of Inspired Oxygen 11/06/24 06:06 11/06/24 06:09 11/06/24 07:43 Temperature 97.8 F Pulse Rate 82 Respiratory Rate 28 H Blood Pressure Pulse Oximetry 99 Oxygen Delivery Method Fraction of Inspired Oxygen 65 11/06/24 08:00 11/06/24 08:08 11/06/24 08:09 Temperature Pulse Rate 79 79 Respiratory Rate 26 H 28 H Blood Pressure 130/79 Pulse Oximetry 96 96 Oxygen Delivery Method Fraction of Inspired Oxygen 11/06/24 08:09 11/06/24 08:20 11/06/24 08:30 Temperature Pulse Rate 79 87 93 H Respiratory Rate 33 H 18 27 H Blood Pressure 119/73 Pulse Oximetry 96 96 94 Oxygen Delivery Method Fraction of Inspired Oxygen 11/06/24 09:00 11/06/24 09:00 11/06/24 09:30 Temperature Pulse Rate 75 67 Respiratory Rate 21 24 Blood Pressure 101/62 Pulse Oximetry 97 97 Oxygen Delivery Method Fraction of Inspired Oxygen 11/06/24 09:42 11/06/24 10:00 11/06/24 10:00 Temperature Pulse Rate 64 69 Respiratory Rate 24 Blood Pressure 99/59 L 96/58 L Pulse Oximetry 98 Oxygen Delivery Method Fraction of Inspired Oxygen 11/06/24 11:12 Temperature Pulse Rate 97 H Respiratory Rate 18 Blood Pressure Pulse Oximetry 97 Oxygen Delivery Method Fraction of Inspired Oxygen Fraction of Inspired Oxygen 65 Oxygen Delivery Method BiPAP Objective Labs 11/06/24 02:25 11/06/24 02:25 Labs: Laboratory Results - last 24 hr 11/06/24 11/06/24 11/06/24 02:25 02:35 03:23 WBC 18.8 H RBC 4.75 Hgb 14.8 Hct 42.1 MCV 88.6 MCH 31.1 MCHC 35.1 RDW 16.9 H Plt Count 212 Neut % (Auto) 90.1 H Lymph % (Auto) 6.1 L [place] % (Auto) 2.7 L Eos % (Auto) 0.7 L Baso % (Auto) 0.4 Neut # (Auto) 64313 H Lymph # (Auto) 1200 [place] # (Auto) 500 Eos # (Auto) 100 Baso # (Auto) 100 PT 12.3 INR 1.1 APTT 24 L ABG Sample Site Right radial ABG pH 7.38 ABG pCO2 36.3 ABG pO2 63 L ABG HCO3 22 L ABG Total CO2 21 L ABG O2 Saturation 91 L ABG Base Excess -3.0 L Luciano Test Positive O2 Delivery Device Bipap FiO2 % 100.0 % Pressure Support 10 PEEP or CPAP 5 Sodium 126 L Potassium 4.9 Chloride 94 L Carbon Dioxide 22 BUN 24 H Creatinine 0.85 Estimated GFR > 60 BUN/Creatinine Ratio 28.2 H Glucose 161 H Hemoglobin A1c Lactate 3.6 H Calcium 8.6 Magnesium 1.7 Total Bilirubin 1.6 H AST 48 ALT 27 Alkaline Phosphatase 47 Total Creatine Kinase 55 Troponin I 0.051 H NT-Pro-B Natriuret Pep 2120 H Total Protein 6.8 Albumin 4.1 Globulin 2.7 Albumin/Globulin Ratio 1.5 Lipase 70 TSH Urine Color Yellow Urine Appearance Clear Urine pH 6.0 Ur Specific Kiester 1.015 Urine Protein Negative Urine Glucose (UA) Negative Urine Ketones Negative Urine Occult Blood Negative Urine Nitrate Negative Urine Bilirubin Negative Urine Urobilinogen 0.2 Ur Leukocyte Esterase Negative Urine RBC None seen Urine WBC None seen Ur Squamous Epith Cells None seen Urine Bacteria None seen Ur Culture Indicated? Cult not indicated Vol Urine Centrifuged 10ml (spun) Nasal Screen MRSA (PCR) SARS-CoV-2 (PCR) Influenza A (RT-PCR) Influenza B (RT-PCR) RSV (PCR) 11/06/24 11/06/24 11/06/24 03:32 03:40 08:00 WBC RBC Hgb Hct MCV MCH MCHC RDW Plt Count Neut % (Auto) Lymph % (Auto) [place] % (Auto) Eos % (Auto) Baso % (Auto) Neut # (Auto) Lymph # (Auto) [place] # (Auto) Eos # (Auto) Baso # (Auto) PT INR APTT ABG Sample Site Right radial ABG pH 7.42 ABG pCO2 36.4 ABG pO2 109 H ABG HCO3 24 ABG Total CO2 22 L ABG O2 Saturation 98 ABG Base Excess -0.6 Luciano Test Positive O2 Delivery Device Bipap FiO2 % 100 % Pressure Support 10 PEEP or CPAP 5 Sodium Potassium Chloride Carbon Dioxide BUN Creatinine Estimated GFR BUN/Creatinine Ratio Glucose Hemoglobin A1c Lactate Calcium Magnesium Total Bilirubin AST ALT Alkaline Phosphatase Total Creatine Kinase Troponin I NT-Pro-B Natriuret Pep Total Protein Albumin Globulin Albumin/Globulin Ratio Lipase TSH Urine Color Urine Appearance Urine pH Ur Specific Kies[place] Urine Protein Urine Glucose (UA) Urine Ketones Urine Occult Blood Urine Nitrate Urine Bilirubin Urine Urobilinogen Ur Leukocyte Esterase Urine RBC Urine WBC Ur Squamous Epith Cells Urine Bacteria Ur Culture Indicated? Vol Urine Centrifuged Nasal Screen MRSA (PCR) Not detected SARS-CoV-2 (PCR) Negative Influenza A (RT-PCR) Flu a negative Influenza B (RT-PCR) Flu b negative RSV (PCR) Negative 11/06/24 08:23 WBC RBC Hgb Hct MCV MCH MCHC RDW Plt Count Neut % (Auto) Lymph % (Auto) [place] % (Auto) Eos % (Auto) Baso % (Auto) Neut # (Auto) Lymph # (Auto) [place] # (Auto) Eos # (Auto) Baso # (Auto) PT INR APTT ABG Sample Site ABG pH ABG pCO2 ABG pO2 ABG HCO3 ABG Total CO2 ABG O2 Saturation ABG Base Excess Luciano Test O2 Delivery Device FiO2 % Pressure Support PEEP or CPAP Sodium Potassium Chloride Carbon Dioxide BUN Creatinine Estimated GFR BUN/Creatinine Ratio Glucose Hemoglobin A1c 5.9 Lactate 1.3 Calcium Magnesium Total Bilirubin AST ALT Alkaline Phosphatase Total Creatine Kinase Troponin I 0.177 H* NT-Pro-B Natriuret Pep Total Protein Albumin Globulin Albumin/Globulin Ratio Lipase TSH 3.12 Urine Color Urine Appearance Urine pH Ur Specific Kies[place] Urine Protein Urine Glucose (UA) Urine Ketones Urine Occult Blood Urine Nitrate Urine Bilirubin Urine Urobilinogen Ur Leukocyte Esterase Urine RBC Urine WBC Ur Squamous Epith Cells Urine Bacteria Ur Culture Indicated? Vol Urine Centrifuged Nasal Screen MRSA (PCR) SARS-CoV-2 (PCR) Influenza A (RT-PCR) Influenza B (RT-PCR) RSV (PCR) Assessment & Plan Time-Based Coding :: 75 minutes spent with patient and on the chart (including review of chart, obtaining history, exam, reviewing outside data, placing orders, documenting exam and treatment plan, and counseling patient). Quality MIPS - Admit I confirm the patient?s Advance Care Plan is present, Code status is documented, Surrogate decision maker is in patient?s record [If Yes, STOP here]: Yes MIPS - Meds 'Current medications' to include all prescriptions, [id number] products, herbals, cannabis/cannabidiol products, and vitamin/mineral/dietary (nutritional) supplements. I have utilized all available resources to obtain, update, or review the patient?s current medications. [If Yes, STOP here]: Yes
[2024-11-06] MEDS: TRIMETH IV ×3 (12:29→23:50)
[2024-11-06] MEDS: DEXTROSE 5% IV ×3 (12:29→23:50)
[2024-11-06] MEDS: WATER IV ×3 (12:29→23:50)
[2024-11-06] MEDS: SULFA IV ×3 (12:29→23:50)
[2024-11-06 13:28] LABS: Troponin I 0.121 ng/mL (0.01-0.034)
[2024-11-06] MEDS: CEFEPIME 2 GM in SODIUM CHLORIDE 0.9% 100 ML IV (14:57)
[2024-11-06] MEDS: FUROSEMIDE 40 MG/4 ML VIAL 20 MG IV (14:57)
--- NOTE | 2024-11-06 15:02 | PC.NURSE ---
Elke, cert pharmacy tech performed an ECHO. Elke was unable to get into [facility] to charge it out. I was called to try and help.
--- NOTE | 2024-11-06 15:54 | CM.DANOTE ---
Patient is a 74 yo male who was admitted INPT Status on 11/05/24 for Pulmonary Fibrosis and Resp Failure. Pt has AARP MCR under [employer] for insurance and his PCP is Dr. Peña Brito at [facility]. EMR was reviewed. Per MD, pt with hx of chronic respiratory failure from pulmonary fibrosis and Boy'S Adviser is Dr. Hale in [place] and started on bipap and switched to HHFNC due to not tolerating bipap well and DNR/DNI but MD attempting hospital [facility] for higher level of care needs due to pt's complex medical hx and pulmonary needs. Pt last admitted in July 2024 a couple months ago for respiratory failure and improved enough for d/c back home with Life Partner and outpt f/u. Pt independent with ADLs at baseline. Plan: SW to follow closely for attempt at hospital transfer and if pt remains admitted then progress to determine discharge planning needs. MARIAMA Spear Discharge Planning/Care Management CM Discharge Assessment Start: 11/06/24 05:23 Freq: Status: Active Protocol: Document 11/06/24 15:52 BF (Rec: 11/06/24 15:54 BF [id number]) Discharge Planning Assessment Assigned Discharge MARIAMA Gaona Oven Dauber DPOA/Assigned life partner Ivy Designee Name Contact Information [phone] Advance Directives? No Advance Directives No on File History Provided By Patient,Significant Other,Medical Record Has Patient been No admitted in last 30 days? Comment last admit in July 2024 couple months ago for similar, went home Prior Living Apartment/Condo Arrangements Household Members significant other Type of Relies on Others transporation used prior to admit Independent with ADL Yes 's Is patient alert and Yes oriented? Caregiver for No Another DME Already Rented / Cane Owned Comment Pending progress and possible hospital transfer Discharge Plan Transfer to Higher Level of Care Transportation if hospital transfer then plan of likely ALS Arrangement Additional Comment Pending POC and progress Review Status In Process Please Provide Date 11/06/24 Initial DC Assessment Was Performed Next Review Type Continued Stay Review
--- NOTE | 2024-11-06 17:13 | DI.ECHO.S_ITS ---
[facility] : : [id number] : : [facility] : : [place], : : [place] [address] : : Phone: [phone] Echocardiogram Report + :Name: TONIO MANCINI Study Date: 11/06/2024 Height: 68 in : [id number]: Weight: 145 lb: : Gender: Male BSA: 1.8 m2 : :: 1950 Age: 74 yrs : :Reason For Study: RESPIRATORY DISTRESS :: Performed By: Ambulette Driver Elke Sanchez : :Referring: UNSPECIFIED : + Interpretation Summary The left ventricle is normal in size. The ejection fraction is estimated to be 65-70%. The interventricular septum is flattened, consistent with a right ventricular pressure/volume condition. The right ventricle is moderate to severely dilated. TAPSE is preserved suggestive of preserved RV function however mid free RV wall appears to be hypokinetic. The interatrial septum bows toward left atrium consistent with elevated right atrial pressure. There is mild to moderate tricuspid regurgitation. The right ventricular systolic pressure is estimated to be at least 71 mmHg based on an estimated right atrial pressure of 3 mm Hg. There is severe pulmonary hypertension. The Doppler profile across pulmonary valve suggests pulmonary hypertension. The ascending aorta is mildly enlarged. Procedure: A two-dimensional transthoracic echocardiogram with color flow and Doppler was performed. The study quality was technically difficult. Comparison is made with the echocardiogram of 08/09/2024. The heart rate ranged between 69-106 bpm during the study. The patient was in normal sinus rhythm during the exam. Left Ventricle: The left ventricle is normal in size. Left ventricular wall thickness is mildly increased. There is no thrombus. The ejection fraction is estimated to be 65-70%. The interventricular septum is flattened, consistent with a right ventricular pressure/volume condition. Diastolic parameters suggest a relaxation abnormality of the left ventricle, consistent with probable normal filling pressures. Right Ventricle: The right ventricle is moderate to severely dilated. A moderator band is seen in the right ventricle. TAPSE is preserved suggestive of preserved RV function however mid free RV wall appears to be hypokinetic. Atria: The left atrial size is normal. The right atrium is mildly dilated. There is no Doppler evidence for an interatrial shunt. The interatrial septum bows toward left atrium consistent with elevated right atrial pressure. Mitral Valve: The mitral valve leaflets appear normal. There is no evidence of stenosis, fluttering, or prolapse. There is trace mitral regurgitation. Aortic Valve: The aortic valve is trileaflet. The aortic valve opens well. There is no aortic valve stenosis. There is trace aortic regurgitation. Tricuspid Valve: Tricuspid leaflets are thickened. There is mild to moderate tricuspid regurgitation. The right ventricular systolic pressure is estimated to be at least 71 mmHg based on an estimated right atrial pressure of 3 mm Hg. There is severe pulmonary hypertension. Pulmonic Valve: The pulmonic valve leaflets are thin and pliable; valve motion is normal. There is mild pulmonic regurgitation. The Doppler profile across pulmonary valve suggests pulmonary hypertension. Great Vessels: The aortic root is normal size. The ascending aorta is mildly enlarged. The aortic arch is at the upper limits of normal in size. The IVC is of normal diameter and collapses greater than 50% with a sniff. This suggests a low right atrial pressure of 3 mm Hg. Pericardium/ Pleura There is a trivial pericardial effusion noted. There are no echocardiographic indications of cardiac tamponade. MMode/2D Measurements & Calculations LVIDd: 4.3 cm AoV Openin.4 cm LVIDs: 2.4 cm LVOT diam: 2.5 cm IVSd: 1.2 cm Ao root diam: 3.7 cm LVPWd: 1.2 cm asc Aorta Diam: 3.9 cm LV mejia. diameter/BSA (cm/m^2): 2.4 Ao Arch Diam (Prox Trans): 3.4 cm LV sys. diameter/BSA (cm/m^2): 1.4 FS: 43.0 % EPSS: 0.25 cm LA A2 area: 16.0 cm2 RA long axis: 6.4 cm LA A4 area: 15.2 cm2 RA area: 20.9 cm2 LA length (vol): 6.0 cm RA vol: 58.0 ml LA vol: 34.3 ml RA : 32.5 ml/m2 LA vol index: 19.2 ml/m2 RVD1 (basal): 5.4 cm IVC diam: 1.8 cm TAPSE: 2.4 cm Doppler Measurements & Calculations Ao V2 max: 180.2 cm/sec LVOT Max Gerardo: 115.6 cm/sec Ao V2 mean: 129.8 cm/sec LV V1 max P.3 mmHg Ao V2 VTI: 26.2 cm LV V1 VTI: 21.4 cm Ao max P.0 mmHg Ao mean P.5 mmHg MELY(I,D): 4.0 cm2 MV E max gerardo: 49.2 cm/sec MELY(V,D): 3.2 cm2 MV A max gerardo: 91.2 cm/sec MELY indexed to BSA (cm^2/m^2): 2.3 MV E/A: 0.54 sev ratio: 0.82 Med Peak E' Gerardo: 6.0 cm/sec E/E' med: 8.2 Lat Peak E' Gerardo: 10.8 cm/sec E/E' lat: 4.6 E/e' average: 6.4 MV dec time: 0.17 sec TR max gerardo: 412.1 cm/sec TR max P.9 mmHg PA pr(Accel): 43.0 mmHg SV(LVOT): 105.4 ml Reading Physician:05:13 PM
--- NOTE | 2024-11-06 18:55 | P.DS_ITS ---
History of Present Illness History of Present Illness Date Patient Seen: 11/06/24 Chief complaint: Respiratory Distress Narrative: Chief complaint: Acute dyspnea with acute on chronic hypoxic respiratory failure 3 weeks after starting mycophenolate for worsening interstitial pulmonary fibrosis Dr. Geoffrey Munguia History of present illness: 11/06/2024: 74M with PMH of UIP with chronic hypoxic respiratory failure, ischemic CVA, pulmonary HTN, past TUD, BPH with LUTS, DM2, HTN, hyperlipidemia, hypothyroidism presents from home for acute respiratory distress according to medics patient was allegedly 15% on room air when they arrived, he normally uses oxygen as needed, states he was on 2 L when they initially presented, at time of evaluation patient tachypneic, was 77% on non-rebreather placed immediately on BiPAP. Patient states that he has been feeling kind of short of breath over the past few days. He had no other prodromal or associated symptoms. Flu/COVID/RSV negative. BNP was mildly elevated at 2120 and troponin minimally elevated at 0.05. In ED, he was given IV steroids, nebulizer therapy, Lasix. CTA chest showed no PE but showed bilateral ground-glass opacities parenchymal infiltrates and honeycomb emphysema changes superimposed on chronic fibrosis. Per ED attending, additional information was obtained by at bedside, she states that her senior water/wastewater engineer at [place] (Dr. Hale) was starting patient on mycophenolate and prednisone over the past several months, paste that his symptoms have been getting worse for the past 2 weeks. Therefore 4 days ago it was decided that the patient would stop mycophenolate states he was at 1500 mg at that time states, states he is still currently on prednisone, 30 mg daily. Initial ABG: pH 7.38, pCO2 36.3, PO2 63. Patient was placed on BiPAP at 100% /. Repeat ABG 1 hour later: pH 7.42, CO2 36, O2 109. Patient is DNR/DNI but ok for bipap. Past medical history, past surgical history, social history, family history, see bottom of the note Hospital course: 11/06: Was able to weaned off of BiPAP overnight and is now on high-flow nasal cannula oxygen discussed with patient and concerns for number of etiologies for the clinical and radiographic worsening of his pulmonary function and anatomy including potential for opportunistic infections such as Pneumocystis, CMV, Aspergillus. Given the severe hypoxia and the timeline for PCP empiric Bactrim and steroids were added today, however our capacity at this facility to diagnose and treat opportunistic infections is limited. Transfer request for were put out to [facility] where his senior water/wastewater engineer Dr. Rowley has privileges to consult and [facility] for escalation of care to include pulmonology and Infectious Disease Review of systems: No abdominal pain nausea vomiting diarrhea No urinary symptom No paresthesia paresis Physical exam: Generally athletic and fit appearing elderly gentleman acutely ill however just transitioned from BiPAP to high-flow nasal cannula oxygen at the time of my examination HEENT Neck 3 cm JVD Heart rate and rhythm regular heart is hyperdynamic with heave Lungs have markedly diminished vesicular breath sounds and markedly shortened respiratory phases Abdomen nondistended Extremities no edema Neurologic was nonfocal Objective laboratory and imaging please see bottom of the note: Assessment and plan: Acute on chronic hypoxic respiratory failure in background setting of progressive idiopathic pulmonary fibrosis attempt to retard progression with mycophenolate requiring BiPAP and transitioned to high-flow oxygen * Extensive diffuse ground-glass parenchymal infiltrates troubling in setting of acute hypoxic respiratory failure * Possible rapid progression of idiopathic pulmonary fibrosis despite attempts to retard progression * Possible infectious etiology including opportunistic infections consider PCP CMV aspergillus * Initiated on doxycycline and high-dose IV steroids we will escalate IV steroids further and try to obtain sputum for PCP * Transfer request referral to either [facility] where patient's senior water/wastewater engineer has privileges and can be at tomorrow or to [facility] for higher level of care * Patient is do not resuscitate but we will permit BiPAP (this is a very cogent quality of life decision for this patient given his progressive and probably terminal condition) * Elevated BNP and slight elevation troponin are probably due to acute on chronic cor pulmonale may technically be a demand perfusion mismatch (non STEMI type 2) given an initial treatment of Lasix 40 mg x 1 previous echocardiogram demonstrate a pulmonary artery pressure of 47 with normal left ventricular systolic function, repeat echocardiogram pending Type 2 diabetes oral medication * Hold oral medication for now * Sliding scale insulin as needed DVT prophylaxis * Enoxaparin Code status: * Do not resuscitate Discharge Providers Provider Date of admission: 11/06/24 05:07 Discharge Date: 11/06/24 Primary care physician: Peña Brito, DO Discharge provider: Cristhian Snedeker, MD Exam Vital Signs (past 8 hours): - 11/06/24 11:00 11/06/24 11:00 11/06/24 11:12 Pulse Rate 69 97 H Respiratory Rate 23 18 Blood Pressure 99/59 L Pulse Oximetry 98 97 11/06/24 11:30 11/06/24 11:59 11/06/24 12:00 Pulse Rate 65 77 Respiratory Rate 23 34 H Blood Pressure 135/79 Pulse Oximetry 98 97 11/06/24 12:00 11/06/24 12:30 11/06/24 13:00 Pulse Rate 84 80 Respiratory Rate 29 H 30 H Blood Pressure 108/68 Pulse Oximetry 96 94 11/06/24 13:00 11/06/24 13:30 11/06/24 14:00 Pulse Rate 80 80 Respiratory Rate 35 H 26 H Blood Pressure 111/71 Pulse Oximetry 96 95 11/06/24 14:00 11/06/24 14:30 11/06/24 14:41 Pulse Rate 69 83 72 Respiratory Rate 31 H 26 H 18 Blood Pressure Pulse Oximetry 96 97 94 11/06/24 14:59 11/06/24 15:00 11/06/24 15:00 Pulse Rate 71 70 Respiratory Rate 28 H 27 H Blood Pressure 113/61 Pulse Oximetry 91 92 11/06/24 15:30 11/06/24 16:00 11/06/24 16:05 Pulse Rate 80 90 Respiratory Rate 27 H 28 H Blood Pressure 143/67 H Pulse Oximetry 88 L 96 11/06/24 16:05 11/06/24 16:30 11/06/24 17:00 Pulse Rate 78 84 89 Respiratory Rate 29 H 29 H Blood Pressure Pulse Oximetry 93 96 89 L 11/06/24 17:30 11/06/24 18:00 Pulse Rate 75 81 Respiratory Rate 25 H 30 H Blood Pressure Pulse Oximetry 97 94 Fraction of Inspired Oxygen 65 Oxygen Delivery Method High Flow Nasal Cannula Objective Labs 11/06/24 02:25 11/06/24 02:25 Labs: Laboratory Results - last 24 hr 11/06/24 11/06/24 11/06/24 02:25 02:35 03:23 WBC 18.8 H RBC 4.75 Hgb 14.8 Hct 42.1 MCV 88.6 MCH 31.1 MCHC 35.1 RDW 16.9 H Plt Count 212 Neut % (Auto) 90.1 H Lymph % (Auto) 6.1 L Eaton % (Auto) 2.7 L Eos % (Auto) 0.7 L Baso % (Auto) 0.4 Neut # (Auto) 85724 H Lymph # (Auto) 1200 [place]aton # (Auto) 500 Eos # (Auto) 100 Baso # (Auto) 100 PT 12.3 INR 1.1 APTT 24 L ABG Sample Site Right radial ABG pH 7.38 ABG pCO2 36.3 ABG pO2 63 L ABG HCO3 22 L ABG Total CO2 21 L ABG O2 Saturation 91 L ABG Base Excess -3.0 L Luciano Test Positive O2 Delivery Device Bipap FiO2 % 100.0 % Pressure Support 10 PEEP or CPAP 5 Sodium 126 L Potassium 4.9 Chloride 94 L Carbon Dioxide 22 BUN 24 H Creatinine 0.85 Estimated GFR > 60 BUN/Creatinine Ratio 28.2 H Glucose 161 H Hemoglobin A1c Lactate 3.6 H Calcium 8.6 Magnesium 1.7 Total Bilirubin 1.6 H AST 48 ALT 27 Alkaline Phosphatase 47 Total Creatine Kinase 55 Troponin I 0.051 H NT-Pro-B Natriuret Pep 2120 H Total Protein 6.8 Albumin 4.1 Globulin 2.7 Albumin/Globulin Ratio 1.5 Lipase 70 TSH Urine Color Yellow Urine Appearance Clear Urine pH 6.0 Ur Specific [place] 1.015 Urine Protein Negative Urine Glucose (UA) Negative Urine Ketones Negative Urine Occult Blood Negative Urine Nitrate Negative Urine Bilirubin Negative Urine Urobilinogen 0.2 Ur Leukocyte Esterase Negative Urine RBC None seen Urine WBC None seen Ur Squamous Epith Cells None seen Urine Bacteria None seen Ur Culture Indicated? Cult not indicated Vol Urine Centrifuged 10ml (spun) Nasal Screen MRSA (PCR) SARS-CoV-2 (PCR) Influenza A (RT-PCR) Influenza B (RT-PCR) RSV (PCR) 11/06/24 11/06/24 11/06/24 03:32 03:40 08:00 WBC RBC Hgb Hct MCV MCH MCHC RDW Plt Count Neut % (Auto) Lymph % (Auto) E[place] % (Auto) Eos % (Auto) Baso % (Auto) Neut # (Auto) Lymph # (Auto) Eaton # (Auto) Eos # (Auto) Baso # (Auto) PT INR APTT ABG Sample Site Right radial ABG pH 7.42 ABG pCO2 36.4 ABG pO2 109 H ABG HCO3 24 ABG Total CO2 22 L ABG O2 Saturation 98 ABG Base Excess -0.6 Luciano Test Positive O2 Delivery Device Bipap FiO2 % 100 % Pressure Support 10 PEEP or CPAP 5 Sodium Potassium Chloride Carbon Dioxide BUN Creatinine Estimated GFR BUN/Creatinine Ratio Glucose Hemoglobin A1c Lactate Calcium Magnesium Total Bilirubin AST ALT Alkaline Phosphatase Total Creatine Kinase Troponin I NT-Pro-B Natriuret Pep Total Protein Albumin Globulin Albumin/Globulin Ratio Lipase TSH Urine Color Urine Appearance Urine pH Ur Specific [place] Urine Protein Urine Glucose (UA) Urine Ketones Urine Occult Blood Urine Nitrate Urine Bilirubin Urine Urobilinogen Ur Leukocyte Esterase Urine RBC Urine WBC Ur Squamous Epith Cells Urine Bacteria Ur Culture Indicated? Vol Urine Centrifuged Nasal Screen MRSA (PCR) Not detected SARS-CoV-2 (PCR) Negative Influenza A (RT-PCR) Flu a negative Influenza B (RT-PCR) Flu b negative RSV (PCR) Negative 11/06/24 11/06/24 08:23 12:58 WBC RBC Hgb Hct MCV MCH MCHC RDW Plt Count Neut % (Auto) Lymph % (Auto) Eaton % (Auto) Eos % (Auto) Baso % (Auto) Neut # (Auto) Lymph # (Auto) E[place] # (Auto) Eos # (Auto) Baso # (Auto) PT INR APTT ABG Sample Site ABG pH ABG pCO2 ABG pO2 ABG HCO3 ABG Total CO2 ABG O2 Saturation ABG Base Excess Luciano Test O2 Delivery Device FiO2 % Pressure Support PEEP or CPAP Sodium Potassium Chloride Carbon Dioxide BUN Creatinine Estimated GFR BUN/Creatinine Ratio Glucose Hemoglobin A1c 5.9 Lactate 1.3 Calcium Magnesium Total Bilirubin AST ALT Alkaline Phosphatase Total Creatine Kinase Troponin I 0.177 H* 0.121 H* NT-Pro-B Natriuret Pep Total Protein Albumin Globulin Albumin/Globulin Ratio Lipase TSH 3.12 Urine Color Urine Appearance Urine pH Ur Specific [place] Urine Protein Urine Glucose (UA) Urine Ketones Urine Occult Blood Urine Nitrate Urine Bilirubin Urine Urobilinogen Ur Leukocyte Esterase Urine RBC Urine WBC Ur Squamous Epith Cells Urine Bacteria Ur Culture Indicated? Vol Urine Centrifuged Nasal Screen MRSA (PCR) SARS-CoV-2 (PCR) Influenza A (RT-PCR) Influenza B (RT-PCR) RSV (PCR) PFSH Medical History Physician orders for life-sustaining treatment (POLST) form indicates patient wish for [id number] status UIP (usual interstitial pneumonitis) Acute hypoxic respiratory failure Cor pulmonale, acute Cold feeling Bradycardia Hx of arterial ischemic stroke Pulmonary hypertension Secondhand smoke exposure History of tobacco use BPH w urinary obs/LUTS Nocturia more than twice per night Diabetic cataract of both eyes Eczema of right hand Hypothyroidism (acquired) Elevated TSH Multiple actinic keratoses Breakdown (mechanical) of other cardiac and vascular devices and implants, initial encounter Vitamin D deficiency Hyperlipidemia Substance abuse (~1967) Stroke (~2016) Measles (~1956) Kidney disease BPH (benign prostatic hyperplasia) Hemorrhoid Diabetes mellitus (~2016) Hypertension Surgical History [place] teeth removed (10/06/97) Anesthesia History of hernia repair (~2005) S/P LASIK surgery (~1997) History of ankle surgery (~1993) Family History Father Hypertension Stroke Mother Kidney disease Brother Kidney disease Social History marital status: number of children: 0 household members: significant other occupational status: previously employed Tobacco: How many years used: 18 alcohol intake: former substance use type: does not use caffeine: Yes Type(s) of exercise: walking frequency: 5-6 times per week duration: 15-30 minutes/day Discharge Plan Discharge Plan Patient Disposition: Xfer Acute Care Hospital Discharge Data Primary Care Provider: Peña Brito
[2024-11-06] MEDS: MAGNESIUM OXIDE 400 MG TABLET PO (20:53)
[2024-11-07] VITALS (64 sets, daily range): BP systolic 81–163; BP diastolic 47–87; PULSE 51–89; RESP 16–49; TEMP 36.2–36.6; O2SAT 81–98
[2024-11-07] MEDS: CEFEPIME 2 GM in SODIUM CHLORIDE 0.9% 100 ML IV ×2 (02:54→15:38)
[2024-11-07] MEDS: WATER IV ×4 (05:57→23:57)
[2024-11-07] MEDS: TRIMETH IV ×4 (05:57→23:57)
[2024-11-07] MEDS: LEVOTHYROXINE 50 MCG TABLET PO (05:57)
[2024-11-07] MEDS: SULFA IV ×4 (05:57→23:57)
[2024-11-07] MEDS: DEXTROSE 5% IV ×4 (05:57→23:57)
[2024-11-07] MEDS: methylPREDNISolone 125 MG/2 ML VIAL IV ×4 (05:57→23:57)
[2024-11-07 06:03] LABS: Add Manual Diff / Slide Review NO; Basophils Absolute Auto 0 /uL (0-100); Basophils Percent Auto 0.3 % (0-2); Eosinophils Absolute Auto 0 /uL (0-450); Hematocrit 37.3 % (41-53); Hemoglobin 13.3 g/dL (13.5-17.5); Lymphocytes Absolute Auto 400 /uL (1100-4500); Lymphocytes Percent Auto 2.9 % (25-40); Mean Corpuscular HGB Conc 35.6 % (30-36); Mean Corpuscular Hemoglobin 31.5 PG (26-34); Mean Corpuscular Volume 88.6 fL (80-100); Monocytes Absolute Auto 300 /uL (0-900); Neutrophils Absolute Auto 12900 /uL (1500-7000); Neutrophils Percent Auto 94.8 % (50-75); Platelet Count 77 X10^3/uL (150-400); Red Blood Cell Count 4.21 X10^6/uL (4.5-5.9); Red Cell Distribution Width 16.5 % (11.6-14.8); White Blood Cell Count 13.6 X10^3/uL (4.5-11.0)
[2024-11-07] MEDS: PANTOPRAZOLE DR 40 MG TABLET PO (06:10)
[2024-11-07 06:19] LABS: Blood Urea Nitrogen 32 mg/dL (9-20); Calcium 8.5 mg/dL (8.4-10.2); Carbon Dioxide 28 mmol/L (22-32); Chloride 95 mmol/L (98-107); Estimated Glomerular Filt Rate > 60 mL/min (>60); Glucose 189 mg/dL (70-99); HEMOLYSIS < 15 (0-50); Magnesium 2.3 mg/dL (1.6-2.3); Potassium 4.1 mmol/L (3.4-5.1); Sodium 128 mmol/L (137-145)
[2024-11-07] MEDS: INSULIN LISPRO 100 UNIT/ML 3ML VIAL SUBCUT ×4 (08:18→21:15)
[2024-11-07] MEDS: LOSARTAN 50 MG TABLET 100 MG PO (08:19)
[2024-11-07] MEDS: ASPIRIN EC 81 MG TABLET PO (08:19)
[2024-11-07] MEDS: TERAZOSIN 1 MG CAPSULE 2 MG PO ×2 (08:20→20:43)
[2024-11-07] MEDS: TAMSULOSIN 0.4 MG CAPSULE 0.8 MG PO ×2 (08:20→20:43)
[2024-11-07] MEDS: MAGNESIUM OXIDE 400 MG TABLET PO ×2 (08:20→20:44)
[2024-11-07] MEDS: LABETALOL 100 MG TABLET PO ×2 (08:20→20:43)
[2024-11-07] MEDS: FUROSEMIDE 20 MG/2 ML VIAL IV ×2 (15:39→20:44)
[2024-11-08] VITALS (37 sets, daily range): BP systolic 103–148; BP diastolic 56–74; PULSE 50–76; RESP 16–36; TEMP 36.3; O2SAT 90–97
[2024-11-08] MEDS: CEFEPIME 2 GM in SODIUM CHLORIDE 0.9% 100 ML IV ×2 (02:46→15:19)
[2024-11-08] MEDS: TRIMETH IV ×3 (05:59→18:08)
[2024-11-08] MEDS: WATER IV ×3 (05:59→18:08)
[2024-11-08] MEDS: DEXTROSE 5% IV ×3 (05:59→18:08)
[2024-11-08] MEDS: methylPREDNISolone 125 MG/2 ML VIAL IV ×3 (05:59→18:08)
[2024-11-08] MEDS: SULFA IV ×3 (05:59→18:08)
[2024-11-08] MEDS: LEVOTHYROXINE 50 MCG TABLET PO (05:59)
[2024-11-08] MEDS: PANTOPRAZOLE DR 40 MG TABLET PO (05:59)
--- NOTE | 2024-11-08 07:37 | PM.PN.1 ---
Subjective Subjective Date Patient Seen: 11/07/24 Interval history: Chief complaint: Acute dyspnea with acute on chronic hypoxic respiratory failure 3 weeks after starting mycophenolate for worsening interstitial pulmonary fibrosis Dr. Geoffrey Munguia History of present illness: 11/06/2024: 74M with PMH of UIP with chronic hypoxic respiratory failure, ischemic CVA, pulmonary HTN, past TUD, BPH with LUTS, DM2, HTN, hyperlipidemia, hypothyroidism presents from home for acute respiratory distress according to medics patient was allegedly 15% on room air when they arrived, he normally uses oxygen as needed, states he was on 2 L when they initially presented, at time of evaluation patient tachypneic, was 77% on non-rebreather placed immediately on BiPAP. Patient states that he has been feeling kind of short of breath over the past few days. He had no other prodromal or associated symptoms. Flu/COVID/RSV negative. BNP was mildly elevated at 2120 and troponin minimally elevated at 0.05. In ED, he was given IV steroids, nebulizer therapy, Lasix. CTA chest showed no PE but showed bilateral ground-glass opacities parenchymal infiltrates and honeycomb emphysema changes superimposed on chronic fibrosis. Per ED attending, additional information was obtained by at bedside, she states that her semiconductor package symbol stamper at [place] (Dr. Hale) was starting patient on mycophenolate and prednisone over the past several months, paste that his symptoms have been getting worse for the past 2 weeks. Therefore 4 days ago it was decided that the patient would stop mycophenolate states he was at 1500 mg at that time states, states he is still currently on prednisone, 30 mg daily. Initial ABG: pH 7.38, pCO2 36.3, PO2 63. Patient was placed on BiPAP at 100% /. Repeat ABG 1 hour later: pH 7.42, CO2 36, O2 109. Patient is DNR/DNI but ok for bipap. Past medical history, past surgical history, social history, family history, see bottom of the note Hospital course: 11/06: Was able to weaned off of BiPAP overnight and is now on high-flow nasal cannula oxygen discussed with patient and concerns for number of etiologies for the clinical and radiographic worsening of his pulmonary function and anatomy including potential for opportunistic infections such as Pneumocystis, CMV, Aspergillus. Given the severe hypoxia and the timeline for PCP empiric Bactrim and steroids were added today, however our capacity at this facility to diagnose and treat opportunistic infections is limited. Transfer request for were put out to [facility] where his semiconductor package symbol stamper Dr. Rowley has privileges to consult and [facility] for escalation of care to include pulmonology and Infectious Disease 11/07: No response from [facility] but accepted to [facility] however there were no beds available. Case discussed with 3 semiconductor package symbol stamper's to from [facility] and Dr. Hale from [facility] all in agreement with current treatment with high-dose Solu-Medrol, doxycycline Bactrim and imipenem for coverage of Staphylococcus, atypicals, PCP, Pseudomonas and diuresis to keep patient ?dry? Review of systems: No abdominal pain nausea vomiting diarrhea No urinary symptom No paresthesia paresis Physical exam: Generally athletic and fit appearing elderly gentleman acutely ill however just transitioned from BiPAP to high-flow nasal cannula oxygen at the time of my examination HEENT Neck 3 cm JVD Heart rate and rhythm regular heart is hyperdynamic with heave Lungs have markedly diminished vesicular breath sounds and markedly shortened respiratory phases Abdomen nondistended Extremities no edema Neurologic was nonfocal Objective laboratory and imaging please see bottom of the note: Assessment and plan: Acute on chronic hypoxic respiratory failure in background setting of progressive idiopathic pulmonary fibrosis attempt to retard progression with mycophenolate requiring BiPAP and transitioned to high-flow oxygen Extensive diffuse ground-glass parenchymal infiltrates troubling in setting of acute hypoxic respiratory failure Possible rapid progression of idiopathic pulmonary fibrosis despite attempts to retard progression Possible infectious etiology including opportunistic infections consider PCP CMV aspergillus Initiated on doxycycline and high-dose IV steroids we will escalate IV steroids further and try to obtain sputum for PCP meanwhile on full-dose IV trimethoprim sulfa for PCP and imipenem for possible Pseudomonas Transfer request referral to either [facility] where patient's semiconductor package symbol stamper has privileges after discussion with semiconductor package symbol stamper from both institutions and can be at tomorrow or to [facility] for higher level of care Patient is do not resuscitate but we will permit BiPAP (this is a very cogent quality of life decision for this patient given his progressive and probably terminal condition) Elevated BNP and slight elevation troponin are probably due to acute on chronic cor pulmonale may technically be a demand perfusion mismatch (non STEMI type 2) given an initial treatment of Lasix 40 mg x 1 previous echocardiogram demonstrate a pulmonary artery pressure of 47 with normal left ventricular systolic function, repeat echocardiogram pending Type 2 diabetes oral medication Hold oral medication for now Sliding scale insulin as needed DVT prophylaxis Enoxaparin Code status: Do not resuscitate Exam Vital Signs (past 8 hours): - 11/07/24 23:39 11/08/24 00:00 11/08/24 00:00 Temperature Pulse Rate 56 L 57 L Respiratory Rate 22 31 H Blood Pressure 121/59 L Pulse Oximetry 97 97 11/08/24 00:30 11/08/24 01:00 11/08/24 01:00 Temperature Pulse Rate 51 L 51 L Respiratory Rate 19 19 Blood Pressure 110/60 Pulse Oximetry 96 97 11/08/24 01:30 11/08/24 02:00 11/08/24 02:00 Temperature Pulse Rate 58 L 53 L Respiratory Rate 23 18 Blood Pressure 117/60 Pulse Oximetry 96 97 11/08/24 02:39 11/08/24 03:00 11/08/24 03:00 Temperature 97.3 F L Pulse Rate 56 L 51 L Respiratory Rate 16 17 Blood Pressure 109/56 L Pulse Oximetry 96 97 11/08/24 04:00 11/08/24 04:00 11/08/24 05:00 Temperature Pulse Rate 50 L Respiratory Rate 17 Blood Pressure 103/56 L 122/61 Pulse Oximetry 96 11/08/24 05:00 11/08/24 05:39 11/08/24 06:00 Temperature Pulse Rate 53 L 56 L Respiratory Rate 19 18 Blood Pressure 118/58 L Pulse Oximetry 96 96 11/08/24 06:00 11/08/24 07:00 11/08/24 07:01 Temperature Pulse Rate 53 L 67 Respiratory Rate 17 25 H Blood Pressure 140/63 Pulse Oximetry 97 90 L 11/08/24 07:01 Temperature Pulse Rate 62 Respiratory Rate 23 Blood Pressure Pulse Oximetry 92 Fraction of Inspired Oxygen 60 Oxygen Delivery Method Heated High Flow Oxygen Flow Rate 45 Objective Labs 11/07/24 05:25 11/07/24 05:25 [facility] Medical History Physician orders for life-sustaining treatment (POLST) form indicates patient wish for [id number] status UIP (usual interstitial pneumonitis) Acute hypoxic respiratory failure Cor pulmonale, acute Cold feeling Bradycardia Hx of arterial ischemic stroke Pulmonary hypertension Secondhand smoke exposure History of tobacco use BPH w urinary obs/LUTS Nocturia more than twice per night Diabetic cataract of both eyes Eczema of right hand Hypothyroidism (acquired) Elevated TSH Multiple actinic keratoses Breakdown (mechanical) of other cardiac and vascular devices and implants, initial encounter Vitamin D deficiency Hyperlipidemia Substance abuse (~1967) Stroke (~2016) Measles (~1956) Kidney disease BPH (benign prostatic hyperplasia) Hemorrhoid Diabetes mellitus (~2016) Hypertension Surgical History [place] teeth removed (10/06/97) Anesthesia History of hernia repair (~2005) S/P LASIK surgery (~1997) History of ankle surgery (~1993) Family History Father Hypertension Stroke Mother Kidney disease Brother Kidney disease Social History marital status: number of children: 0 household members: significant other occupational status: previously employed Smoking Status: Former smoker Tobacco: How many years used: 18 alcohol intake: former substance use type: does not use caffeine: Yes Type(s) of exercise: walking frequency: 5-6 times per week duration: 15-30 minutes/day Assessment & Plan Time-Based Coding :: 65 minutes spent with patient and on the chart (including review of chart, obtaining history, exam, reviewing outside data, placing orders, documenting exam and treatment plan, and counseling patient).
--- NOTE | 2024-11-08 07:42 | P.PN_ITS ---
Subjective Subjective Date Patient Seen: 11/08/24 Interval history: Chief complaint: Acute dyspnea with acute on chronic hypoxic respiratory failure 3 weeks after starting mycophenolate for worsening interstitial pulmonary fibrosis Dr. Geoffrey Munguia History of present illness: 11/06/2024: 74M with PMH of UIP with chronic hypoxic respiratory failure, ischemic CVA, pulmonary HTN, past TUD, BPH with LUTS, DM2, HTN, hyperlipidemia, hypothyroidism presents from home for acute respiratory distress according to medics patient was allegedly 15% on room air when they arrived, he normally uses oxygen as needed, states he was on 2 L when they initially presented, at time of evaluation patient tachypneic, was 77% on non-rebreather placed immediately on BiPAP. Patient states that he has been feeling kind of short of breath over the past few days. He had no other prodromal or associated symptoms. Flu/COVID/RSV negative. BNP was mildly elevated at 2120 and troponin minimally elevated at 0.05. In ED, he was given IV steroids, nebulizer therapy, Lasix. CTA chest showed no PE but showed bilateral ground-glass opacities parenchymal infiltrates and honeycomb emphysema changes superimposed on chronic fibrosis. Per ED attending, additional information was obtained by at bedside, she states that her macerator operator at [place] (Dr. Hale) was starting patient on mycophenolate and prednisone over the past several months, paste that his symptoms have been getting worse for the past 2 weeks. Therefore 4 days ago it was decided that the patient would stop mycophenolate states he was at 1500 mg at that time states, states he is still currently on prednisone, 30 mg daily. Initial ABG: pH 7.38, pCO2 36.3, PO2 63. Patient was placed on BiPAP at 100% /. Repeat ABG 1 hour later: pH 7.42, CO2 36, O2 109. Patient is DNR/DNI but ok for bipap. Past medical history, past surgical history, social history, family history, see bottom of the note Hospital course: 11/06: Was able to weaned off of BiPAP overnight and is now on high-flow nasal cannula oxygen discussed with patient and concerns for number of etiologies for the clinical and radiographic worsening of his pulmonary function and anatomy including potential for opportunistic infections such as Pneumocystis, CMV, Aspergillus. Given the severe hypoxia and the timeline for PCP empiric Bactrim and steroids were added today, however our capacity at this facility to diagnose and treat opportunistic infections is limited. Transfer request for were put out to [facility] where his macerator operator Dr. Rowley has privileges to consult and [facility] for escalation of care to include pulmonology and Infectious Disease 11/07: [facility] but accepted to [facility] however there were no beds available. Case discussed with 3 macerator operator's to from [facility] and Dr. Hale from [facility] all in agreement with current treatment with high-dose Solu- Medrol, doxycycline Bactrim and imipenem for coverage of Staphylococcus, atypicals, PCP, Pseudomonas and diuresis to keep patient ?dry? 11/08: Breathing less labored no fevers or chills overnight sodium 127 potassium 4.3 BUN 34 creatinine 0.85 which is stable Review of systems: No abdominal pain nausea vomiting diarrhea No urinary symptom No paresthesia paresis Physical exam: Generally athletic and fit appearing elderly gentleman high-flow nasal cannula oxygen at the time of my examination HEENT Neck 3 cm JVD Heart rate and rhythm regular Lungs have markedly diminished vesicular breath sounds and markedly shortened respiratory phases Abdomen nondistended Extremities no edema Neurologic was nonfocal Objective laboratory and imaging please see bottom of the note: Assessment and plan: Acute on chronic hypoxic respiratory failure in background setting of progressive idiopathic pulmonary fibrosis attempt to retard progression with mycophenolate requiring BiPAP and transitioned to high-flow oxygen * Extensive diffuse ground-glass parenchymal infiltrates troubling in setting of acute hypoxic respiratory failure * Possible rapid progression of idiopathic pulmonary fibrosis despite attempts to retard progression * Possible infectious etiology including opportunistic infections consider PCP CMV aspergillus, per discussion with pre pulmonologists, the patient may not be able to tolerate bronchoscopy which would be necessary for obtaining sample to diagnose * Initiated on doxycycline and high-dose IV steroids we will escalate IV steroids further and try to obtain sputum for PCP meanwhile on full-dose IV trimethoprim sulfa for PCP and Meropenem for possible Pseudomonas * Transfer request referral to either [facility] where patient's macerator operator has privileges after discussion with macerator operator from both institutions and can be at tomorrow or to [facility] for higher level of care * Patient is do not resuscitate but we will permit BiPAP (this is a very cogent quality of life decision for this patient given his progressive and probably terminal condition) * Elevated BNP and slight elevation troponin are probably due to acute on chronic cor pulmonale may technically be a demand perfusion mismatch (non STEMI type 2) given an initial treatment of Lasix 40 mg x 1 previous echocardiogram demonstrate a pulmonary artery pressure of 47 with normal left ventricular systolic function, repeat echocardiogram pending Type 2 diabetes oral medication * Hold oral medication for now * Sliding scale insulin as needed DVT prophylaxis * Enoxaparin Code status: * Do not resuscitate Time-Based Coding :: 35 minutes spent with patient and on the chart (including review of chart, obtaining history, exam, reviewing outside data, placing orders, documenting exam and treatment plan, and counseling patient). Exam Vital Signs (past 8 hours): - 11/08/24 00:00 11/08/24 00:00 11/08/24 00:30 Temperature Pulse Rate 57 L 51 L Respiratory Rate 31 H 19 Blood Pressure 121/59 L Pulse Oximetry 97 96 11/08/24 01:00 11/08/24 01:00 11/08/24 01:30 Temperature Pulse Rate 51 L 58 L Respiratory Rate 19 23 Blood Pressure 110/60 Pulse Oximetry 97 96 11/08/24 02:00 11/08/24 02:00 11/08/24 02:39 Temperature Pulse Rate 53 L 56 L Respiratory Rate 18 16 Blood Pressure 117/60 Pulse Oximetry 97 96 11/08/24 03:00 11/08/24 03:00 11/08/24 04:00 Temperature 97.3 F L Pulse Rate 51 L Respiratory Rate 17 Blood Pressure 109/56 L 103/56 L Pulse Oximetry 97 11/08/24 04:00 11/08/24 05:00 11/08/24 05:00 Temperature Pulse Rate 50 L 53 L Respiratory Rate 17 19 Blood Pressure 122/61 Pulse Oximetry 96 96 11/08/24 05:39 11/08/24 06:00 11/08/24 06:00 Temperature Pulse Rate 56 L 53 L Respiratory Rate 18 17 Blood Pressure 118/58 L Pulse Oximetry 96 97 11/08/24 07:00 11/08/24 07:01 11/08/24 07:01 Temperature Pulse Rate 67 62 Respiratory Rate 25 H 23 Blood Pressure 140/63 Pulse Oximetry 90 L 92 Fraction of Inspired Oxygen 60 Oxygen Delivery Method Heated High Flow Oxygen Flow Rate 45 Objective Labs 11/08/24 08:27 11/08/24 08:27 [facility] Medical History Physician orders for life-sustaining treatment (POLST) form indicates patient wish for sb-tha-tmsxnsumpvo status UIP (usual interstitial pneumonitis) Acute hypoxic respiratory failure Cor pulmonale, acute Cold feeling Bradycardia Hx of arterial ischemic stroke Pulmonary hypertension Secondhand smoke exposure History of tobacco use BPH w urinary obs/LUTS Nocturia more than twice per night Diabetic cataract of both eyes Eczema of right hand Hypothyroidism (acquired) Elevated TSH Multiple actinic keratoses Breakdown (mechanical) of other cardiac and vascular devices and implants, initial encounter Vitamin D deficiency Hyperlipidemia Substance abuse (~1967) Stroke (~2016) Measles (~1956) Kidney disease BPH (benign prostatic hyperplasia) Hemorrhoid Diabetes mellitus (~2016) Hypertension Surgical History [place] teeth removed (10/06/97) Anesthesia History of hernia repair (~2005) S/P LASIK surgery (~1997) History of ankle surgery (~1993) Family History Father Hypertension Stroke Mother Kidney disease Brother Kidney disease Social History marital status: number of children: 0 household members: significant other occupational status: previously employed Smoking Status: Former smoker Tobacco: How many years used: 18 alcohol intake: former substance use type: does not use caffeine: Yes Type(s) of exercise: walking frequency: 5-6 times per week duration: 15-30 minutes/day Assessment & Plan Time-Based Coding :: [TOTAL MINUTES] spent with patient and on the chart (including review of chart, obtaining history, exam, reviewing outside data, placing orders, documenting exam and treatment plan, and counseling patient) on [DATE].
[2024-11-08] MEDS: INSULIN LISPRO 100 UNIT/ML 3ML VIAL SUBCUT ×5 (08:21→21:06)
[2024-11-08] MEDS: MAGNESIUM OXIDE 400 MG TABLET PO ×2 (08:29→21:10)
[2024-11-08] MEDS: LABETALOL 100 MG TABLET PO ×2 (08:29→21:09)
[2024-11-08] MEDS: TAMSULOSIN 0.4 MG CAPSULE 0.8 MG PO ×2 (08:29→21:08)
[2024-11-08] MEDS: ASPIRIN EC 81 MG TABLET PO (08:29)
[2024-11-08] MEDS: TERAZOSIN 1 MG CAPSULE 2 MG PO ×2 (08:30→21:10)
[2024-11-08] MEDS: FUROSEMIDE 20 MG/2 ML VIAL IV ×2 (08:31→21:08)
[2024-11-08 08:47] LABS: Hematocrit 39.4 % (41-53); Hemoglobin 13.5 g/dL (13.5-17.5); Mean Corpuscular HGB Conc 34.4 % (30-36); Mean Corpuscular Hemoglobin 30.6 PG (26-34); Mean Corpuscular Volume 89.1 fL (80-100); Platelet Count 84 X10^3/uL (150-400); Red Blood Cell Count 4.42 X10^6/uL (4.5-5.9); Red Cell Distribution Width 16.4 % (11.6-14.8); White Blood Cell Count 15.1 X10^3/uL (4.5-11.0)
[2024-11-08 09:05] LABS: Blood Urea Nitrogen 34 mg/dL (9-20); Calcium 8.4 mg/dL (8.4-10.2); Carbon Dioxide 26 mmol/L (22-32); Chloride 92 mmol/L (98-107); Estimated Glomerular Filt Rate > 60 mL/min (>60); Glucose 244 mg/dL (70-99); HEMOLYSIS < 15 (0-50); Potassium 4.3 mmol/L (3.4-5.1); Sodium 127 mmol/L (137-145)
[2024-11-08] MEDS: INSULIN GLARGINE 100 UNIT/ML 3ML PEN 10 UNIT SUBCUT (21:07)
[2024-11-08] MEDS: DOCUSATE 100 MG CAPSULE 500 MG PO (21:09)
[2024-11-09] VITALS (39 sets, daily range): BP systolic 106–150; BP diastolic 58–83; PULSE 48–63; RESP 16–37; TEMP 36.1–36.6; O2SAT 86–97
[2024-11-09] MEDS: methylPREDNISolone 125 MG/2 ML VIAL IV ×3 (00:37→12:06)
[2024-11-09] MEDS: DEXTROSE 5% IV ×3 (00:47→12:06)
[2024-11-09] MEDS: WATER IV ×3 (00:47→12:06)
[2024-11-09] MEDS: TRIMETH IV ×3 (00:47→12:06)
[2024-11-09] MEDS: SULFA IV ×3 (00:47→12:06)
[2024-11-09] MEDS: CEFEPIME 2 GM in SODIUM CHLORIDE 0.9% 100 ML IV ×2 (04:08→15:20)
[2024-11-09] MEDS: LEVOTHYROXINE 50 MCG TABLET PO (06:11)
[2024-11-09] MEDS: PANTOPRAZOLE DR 40 MG TABLET PO (06:11)
[2024-11-09] MEDS: MAGNESIUM OXIDE 400 MG TABLET PO ×2 (08:32→20:54)
[2024-11-09] MEDS: TAMSULOSIN 0.4 MG CAPSULE 0.8 MG PO ×2 (08:32→20:52)
[2024-11-09] MEDS: LABETALOL 100 MG TABLET PO ×2 (08:34→20:53)
[2024-11-09] MEDS: TERAZOSIN 1 MG CAPSULE 2 MG PO ×2 (08:34→20:51)
[2024-11-09] MEDS: FUROSEMIDE 20 MG/2 ML VIAL IV ×2 (08:35→20:51)
[2024-11-09] MEDS: ASPIRIN EC 81 MG TABLET PO (08:35)
[2024-11-09] MEDS: INSULIN LISPRO 100 UNIT/ML 3ML VIAL SUBCUT ×6 (08:37→17:09)
--- NOTE | 2024-11-09 10:26 | CM.DPNOTE ---
DCP Note POISING INSPECTOR reviewed EMR per discharge coordinator/bedside RN, pt still on waiting list for transfer to for higher level of care. CM team will continue to follow as needed for DCP coordination if pt remains hospitalized. MARIAMA Butler
[2024-11-09 10:45] LABS: Add Manual Diff / Slide Review NO; Basophils Absolute Auto 0 /uL (0-100); Basophils Percent Auto 0.4 % (0-2); Eosinophils Absolute Auto 0 /uL (0-450); Eosinophils Percent Auto 0.3 % (2-4); Hematocrit 38.4 % (41-53); Hemoglobin 13.1 g/dL (13.5-17.5); Lymphocytes Absolute Auto 300 /uL (1100-4500); Lymphocytes Percent Auto 2.5 % (25-40); Mean Corpuscular HGB Conc 34.2 % (30-36); Mean Corpuscular Hemoglobin 30.7 PG (26-34); Mean Corpuscular Volume 89.7 fL (80-100); Monocytes Absolute Auto 300 /uL (0-900); Monocytes Percent Auto 2.7 % (3-14); Neutrophils Absolute Auto 12200 /uL (1500-7000); Neutrophils Percent Auto 94.1 % (50-75); Platelet Count 88 X10^3/uL (150-400); Red Blood Cell Count 4.29 X10^6/uL (4.5-5.9); Red Cell Distribution Width 16.1 % (11.6-14.8); White Blood Cell Count 12.9 X10^3/uL (4.5-11.0)
[2024-11-09 10:56] LABS: Alanine Aminotransferase 31 IU/L (<50); Albumin 3.5 g/dL (3.5-5.0); Albumin Globulin Ratio 1.6 (1.0-2.8); Alkaline Phosphatase 41 U/L (38-126); Aspartate Aminotransferase 27 IU/L (17-59); BUN Creatinine Ratio 34.8 (6-22); Bilirubin Total 0.5 mg/dL (0.2-1.3); Blood Urea Nitrogen 32 mg/dL (9-20); Calcium 8.2 mg/dL (8.4-10.2); Carbon Dioxide 24 mmol/L (22-32); Chloride 94 mmol/L (98-107); Estimated Glomerular Filt Rate > 60 mL/min (>60); Globulin 2.2 g/dL (1.7-4.1); Glucose 200 mg/dL (70-99); HEMOLYSIS < 15 (0-50); Magnesium 2.2 mg/dL (1.6-2.3); Potassium 3.9 mmol/L (3.4-5.1); Sodium 126 mmol/L (137-145); Total Protein 5.7 g/dL (6.3-8.2)
[2024-11-09] MEDS: ENOXAPARIN 40 MG/0.4 ML SYRINGE SUBCUT (12:06)
[2024-11-09] MEDS: BISACODYL 5 MG TABLET 10 MG PO (17:09)
--- NOTE | 2024-11-09 17:18 | P.PN_ITS ---
Subjective Subjective Interval history: Chief complaint: Acute dyspnea with acute on chronic hypoxic respiratory failure 3 weeks after starting mycophenolate for worsening interstitial pulmonary fibrosis Dr. Geoffrey Munguia History of present illness: 11/06/2024: 74M with PMH of UIP with chronic hypoxic respiratory failure, ischemic CVA, pulmonary HTN, past TUD, BPH with LUTS, DM2, HTN, hyperlipidemia, hypothyroidism presents from home for acute respiratory distress according to medics patient was allegedly 15% on room air when they arrived, he normally uses oxygen as needed, states he was on 2 L when they initially presented, at time of evaluation patient tachypneic, was 77% on non-rebreather placed immediately on BiPAP. Patient states that he has been feeling kind of short of breath over the past few days. He had no other prodromal or associated symptoms. Flu/COVID/RSV negative. BNP was mildly elevated at 2120 and troponin minimally elevated at 0.05. In ED, he was given IV steroids, nebulizer therapy, Lasix. CTA chest showed no PE but showed bilateral ground-glass opacities parenchymal infiltrates and honeycomb emphysema changes superimposed on chronic fibrosis. Per ED attending, additional information was obtained by at bedside, she states that her electrical logger at [place] (Dr. Hale) was starting patient on mycophenolate and prednisone over the past several months, paste that his symptoms have been getting worse for the past 2 weeks. Therefore 4 days ago it was decided that the patient would stop mycophenolate states he was at 1500 mg at that time states, states he is still currently on prednisone, 30 mg daily. Initial ABG: pH 7.38, pCO2 36.3, PO2 63. Patient was placed on BiPAP at 100% 10/5. Repeat ABG 1 hour later: pH 7.42, CO2 36, O2 109. Patient is DNR/DNI but ok for bipap. Hospital course: 11/06: Was able to weaned off of BiPAP overnight and is now on high-flow nasal cannula oxygen discussed with patient and concerns for number of etiologies for the clinical and radiographic worsening of his pulmonary function and anatomy including potential for opportunistic infections such as Pneumocystis, CMV, Aspergillus. Given the severe hypoxia and the timeline for PCP empiric Bactrim and steroids were added today, however our capacity at this facility to diagnose and treat opportunistic infections is limited. Transfer request for were put out to [facility] where his electrical logger Dr. Rowley has privileges to consult and [facility] for escalation of care to include pulmonology and Infectious Disease 11/07: No response from [facility] but accepted to [facility] however there were no beds available. Case discussed with 3 electrical logger's to from [facility] and Dr. Hale from [facility] all in agreement with current treatment with high-dose Solu- Medrol, doxycycline Bactrim and imipenem for coverage of Staphylococcus, atypicals, PCP, Pseudomonas and diuresis to keep patient ?dry? 11/08: Breathing less labored no fevers or chills overnight sodium 127 potassium 4.3 BUN 34 creatinine 0.85 which is stable 11/09 : remains off bipap but still on high flow at 45L and 60% Exam Vital Signs (past 8 hours): - 11/09/24 09:22 11/09/24 09:28 11/09/24 09:28 Temperature Pulse Rate 56 L 59 L Respiratory Rate 18 37 H Blood Pressure 120/78 Pulse Oximetry 93 86 L 11/09/24 10:00 11/09/24 10:00 11/09/24 11:00 Temperature Pulse Rate 57 L Respiratory Rate 22 Blood Pressure 107/59 L 109/59 L Pulse Oximetry 92 11/09/24 11:00 11/09/24 11:46 11/09/24 11:46 Temperature 97.5 F L Pulse Rate 51 L 58 L Respiratory Rate 18 20 Blood Pressure 106/59 L Pulse Oximetry 95 96 11/09/24 11:54 11/09/24 12:00 11/09/24 13:00 Temperature Pulse Rate 55 L 62 62 Respiratory Rate 20 26 H 21 Blood Pressure Pulse Oximetry 93 90 L 89 L 11/09/24 14:00 11/09/24 14:20 11/09/24 15:00 Temperature Pulse Rate 57 L 58 L 60 Respiratory Rate 28 H 21 24 Blood Pressure 106/59 L Pulse Oximetry 97 96 90 L 11/09/24 15:50 11/09/24 15:50 11/09/24 16:00 Temperature Pulse Rate 58 L 59 L Respiratory Rate 27 H 25 H Blood Pressure 144/77 H Pulse Oximetry 94 92 11/09/24 16:01 11/09/24 16:01 11/09/24 16:23 Temperature 97 F L Pulse Rate 60 Respiratory Rate 22 Blood Pressure 144/83 H Pulse Oximetry 93 11/09/24 16:55 Temperature Pulse Rate 59 L Respiratory Rate 20 Blood Pressure Pulse Oximetry 93 Fraction of Inspired Oxygen 60 Oxygen Delivery Method High Flow Nasal Cannula Oxygen Flow Rate 45 Narrative Exam Narrative: Physical exam: Generally athletic and fit appearing elderly gentleman high-flow nasal cannula oxygen at the time of my examination Heart rate and rhythm regular Lungs have markedly diminished vesicular breath sounds and markedly shortened respiratory phases Abdomen nondistended Extremities no edema Neurologic was nonfocal Objective Labs 11/09/24 10:36 11/09/24 10:36 Labs: Laboratory Results - last 24 hr 11/09/24 10:36 WBC 12.9 H RBC 4.29 L Hgb 13.1 L Hct 38.4 L MCV 89.7 MCH 30.7 MCHC 34.2 RDW 16.1 H Plt Count 88 L Neut % (Auto) 94.1 H Lymph % (Auto) 2.5 L [place] % (Auto) 2.7 L Eos % (Auto) 0.3 L Baso % (Auto) 0.4 Neut # (Auto) 46780 H Lymph # (Auto) 300 L [place] # (Auto) 300 Eos # (Auto) 0 Baso # (Auto) 0 Sodium 126 L Potassium 3.9 Chloride 94 L Carbon Dioxide 24 BUN 32 H Creatinine 0.92 Estimated GFR > 60 BUN/Creatinine Ratio 34.8 H Glucose 200 H Calcium 8.2 L Magnesium 2.2 Total Bilirubin 0.5 AST 27 ALT 31 Alkaline Phosphatase 41 Total Protein 5.7 L Albumin 3.5 Globulin 2.2 Albumin/Globulin Ratio 1.6 [facility] Medical History Physician orders for life-sustaining treatment (POLST) form indicates patient wish for od-ono-[id number] status UIP (usual interstitial pneumonitis) Acute hypoxic respiratory failure Cor pulmonale, acute Cold feeling Bradycardia Hx of arterial ischemic stroke Pulmonary hypertension Secondhand smoke exposure History of tobacco use BPH w urinary obs/LUTS Nocturia more than twice per night Diabetic cataract of both eyes Eczema of right hand Hypothyroidism (acquired) Elevated TSH Multiple actinic keratoses Breakdown (mechanical) of other cardiac and vascular devices and implants, initial encounter Vitamin D deficiency Hyperlipidemia Substance abuse (~1967) Stroke (~2017) Measles (~1956) Kidney disease BPH (benign prostatic hyperplasia) Hemorrhoid Diabetes mellitus (~2016) Hypertension Surgical History [place] teeth removed (10/06/97) Anesthesia History of hernia repair (~2005) S/P LASIK surgery (~1997) History of ankle surgery (~1993) Family History Father Hypertension Stroke Mother Kidney disease Brother Kidney disease Social History marital status: number of children: 0 household members: significant other occupational status: previously employed Smoking Status: Former smoker Tobacco: How many years used: 18 alcohol intake: former substance use type: does not use caffeine: Yes Type(s) of exercise: walking frequency: 5-6 times per week duration: 15-30 minutes/day Assessment & Plan Assessment & Plan narrative: Assessment and plan: Possible sepsis secondary to bacterial PNA with thrombocytopenia and acute on chronic respiratory failure with hypoxia - continue cefepime, bactrim. Bactrim will change to 2 - still on High flow O2, though slowly improving. Will remain listed for transfer. - high concern for PCP, started IV bactrim but can change to PO today, dosing is 2 160/800 tabs TID after discussion with pharmacy. Steroids as noted below. Acute on chronic hypoxic respiratory failure in background setting of progressive idiopathic pulmonary fibrosis - Extensive diffuse ground-glass parenchymal infiltrates troubling in setting of acute hypoxic respiratory failure on admission. Possibly represents acute exacerbation of IPF vs broad infectious etiologies. - has been on solumedrol 125 mg q6, will start to de-escalate today to 60 q6 with ideal probably being oral prednisone for possible PCP at 40 mg BID - Transfer request referral to either [facility] where patient's electrical logger has privileges after discussion with electrical logger from both institutions and can be at tomorrow or to [facility] for higher level of care - Patient is do not resuscitate but we will permit BiPAP (this is a very cogent quality of life decision for this patient given his progressive and probably terminal condition) - Elevated BNP and slight elevation troponin are probably due to acute on chronic cor pulmonale may technically be a demand perfusion mismatch (non STEMI type 2) given an initial treatment of Lasix 40 mg x 1 previous echocardiogram demonstrate a pulmonary artery pressure of 47 with normal left ventricular systolic function, repeat echocardiogram pending still today. - started on 20 mg Furosemide IV BID, will continue today. Type 2 diabetes oral medication * Hold oral medication for now * Sliding scale insulin as needed Hyponatremia, chronic - Na 126, continue to follow. HTN - losartan home medication currently on hold. DVT prophylaxis * Enoxaparin Code status: * Do not resuscitate Dispo: Possible transfer pending bed availability. Likely multiple days in the hospital given degree of respiratory failure. Time-Based Coding :: [TOTAL MINUTES] spent with patient and on the chart (including review of chart, obtaining history, exam, reviewing outside data, placing orders, documenting exam and treatment plan, and counseling patient) on [DATE].
[2024-11-09] MEDS: methylPREDNISolone 125 MG/2 ML VIAL 60 MG IV (18:21)
--- NOTE | 2024-11-09 18:58 | PC.NURSE ---
PT A/OX4 THROUGHOUT SHIFT. RT WEANED HF TO 40L 30%. PT SOB WITH EXERTION TO CHAIR/ BEDSIDE COMMODE TODAY. STATING HE FEELS CONSTIATED. ORDER FOR DULCOLAX OBTAINED/GIVEN. TOLERATING HF SETTINGS AT THIS TIME. NO COMPLAINTS FROM PATIENT. PLAN TO TRANSFER PATIENT OUT REMAINS.
[2024-11-09] MEDS: DOCUSATE 100 MG CAPSULE 500 MG PO (20:52)
[2024-11-09] MEDS: TRIMETH/SULFA 160/800 (DS) TABLET 2 TAB PO (20:54)
[2024-11-09] MEDS: INSULIN GLARGINE 100 UNIT/ML 3ML PEN 10 UNIT SUBCUT (20:58)
[2024-11-10] VITALS (36 sets, daily range): BP systolic 111–158; BP diastolic 59–84; PULSE 46–76; RESP 14–47; TEMP 36.2–36.8; O2SAT 88–95
[2024-11-10] MEDS: CEFEPIME 2 GM in SODIUM CHLORIDE 0.9% 100 ML IV ×2 (02:59→15:36)
[2024-11-10] MEDS: SODIUM CHLORIDE 0.9% FLUSH 10 ML IV ×2 (02:59→06:25)
[2024-11-10 04:52] LABS: Add Manual Diff / Slide Review NO; Basophils Absolute Auto 0 /uL (0-100); Basophils Percent Auto 0.2 % (0-2); Eosinophils Absolute Auto 0 /uL (0-450); Hematocrit 39.3 % (41-53); Hemoglobin 13.6 g/dL (13.5-17.5); Lymphocytes Absolute Auto 400 /uL (1100-4500); Mean Corpuscular HGB Conc 34.6 % (30-36); Mean Corpuscular Hemoglobin 30.8 PG (26-34); Mean Corpuscular Volume 88.8 fL (80-100); Monocytes Absolute Auto 400 /uL (0-900); Monocytes Percent Auto 3.7 % (3-14); Neutrophils Absolute Auto 10300 /uL (1500-7000); Neutrophils Percent Auto 92.1 % (50-75); Platelet Count 80 X10^3/uL (150-400); Red Blood Cell Count 4.42 X10^6/uL (4.5-5.9); Red Cell Distribution Width 16.1 % (11.6-14.8); White Blood Cell Count 11.2 X10^3/uL (4.5-11.0)
[2024-11-10 05:18] LABS: Alanine Aminotransferase 31 IU/L (<50); Albumin 3.4 g/dL (3.5-5.0); Albumin Globulin Ratio 1.5 (1.0-2.8); Alkaline Phosphatase 48 U/L (38-126); Aspartate Aminotransferase 25 IU/L (17-59); BUN Creatinine Ratio 38.5 (6-22); Bilirubin Total 0.8 mg/dL (0.2-1.3); Blood Urea Nitrogen 35 mg/dL (9-20); Calcium 8.2 mg/dL (8.4-10.2); Carbon Dioxide 26 mmol/L (22-32); Chloride 94 mmol/L (98-107); Estimated Glomerular Filt Rate > 60 mL/min (>60); Globulin 2.3 g/dL (1.7-4.1); Glucose 199 mg/dL (70-99); HEMOLYSIS < 15 (0-50); Magnesium 2.3 mg/dL (1.6-2.3); Potassium 4.1 mmol/L (3.4-5.1); Sodium 126 mmol/L (137-145); Total Protein 5.7 g/dL (6.3-8.2)
[2024-11-10] MEDS: methylPREDNISolone 125 MG/2 ML VIAL 60 MG IV ×4 (06:24→18:07)
[2024-11-10] MEDS: PANTOPRAZOLE DR 40 MG TABLET PO (06:25)
[2024-11-10] MEDS: LEVOTHYROXINE 50 MCG TABLET PO (06:25)
[2024-11-10] MEDS: TERAZOSIN 1 MG CAPSULE 2 MG PO ×2 (08:20→21:43)
[2024-11-10] MEDS: TAMSULOSIN 0.4 MG CAPSULE 0.8 MG PO ×2 (08:20→21:42)
[2024-11-10] MEDS: LABETALOL 100 MG TABLET PO ×2 (08:20→21:53)
[2024-11-10] MEDS: BISACODYL 5 MG TABLET 10 MG PO (08:20)
[2024-11-10] MEDS: FUROSEMIDE 20 MG/2 ML VIAL IV ×2 (08:21→21:42)
[2024-11-10] MEDS: MAGNESIUM OXIDE 400 MG TABLET PO ×2 (08:21→21:42)
[2024-11-10] MEDS: ENOXAPARIN 40 MG/0.4 ML SYRINGE SUBCUT (08:21)
[2024-11-10] MEDS: ASPIRIN EC 81 MG TABLET PO (08:21)
[2024-11-10] MEDS: TRIMETH/SULFA 160/800 (DS) TABLET 2 TAB PO ×3 (08:21→21:38)
[2024-11-10] MEDS: INSULIN LISPRO 100 UNIT/ML 3ML VIAL SUBCUT ×6 (08:22→17:45)
--- NOTE | 2024-11-10 08:52 | DI.RAD.S_ITS ---
PROCEDURE: XR CHEST 1V INDICATIONS: continued hypoxia, compare to 11/06 TECHNIQUE: One view of the chest was acquired. COMPARISON: [facility], CR, XR CHEST 1V, 11/06/2024, 2:15. FINDINGS: No significant change compared to the prior exam. There is a background of severe diffuse prominent interstitial markings, ground-glass opacities, interstitial lung disease and fibrotic changes. Superimposed cardiomegaly with pulmonary vascular congestion again noted unchanged. No pneumothorax, no pleural effusion, no lobar consolidation. IMPRESSION: No significant change. Continued follow-up is needed. Dictated by: Zhao Nunez M.D. on 11/10/2024 at 10:31 Approved by: Zhao Nunez M.D. on 11/10/2024 at 10:34
[2024-11-10] MEDS: polyethylene glycoL 3350 17 GM POWD.PACK PO (12:07)
--- NOTE | 2024-11-10 12:30 | P.PN_ITS ---
Subjective Subjective Interval history: Chief complaint: Acute dyspnea with acute on chronic hypoxic respiratory failure 3 weeks after starting mycophenolate for worsening interstitial pulmonary fibrosis Dr. Geoffrey Munguia History of present illness: 11/06/2024: 74M with PMH of UIP with chronic hypoxic respiratory failure, ischemic CVA, pulmonary HTN, past TUD, BPH with LUTS, DM2, HTN, hyperlipidemia, hypothyroidism presents from home for acute respiratory distress according to medics patient was allegedly 15% on room air when they arrived, he normally uses oxygen as needed, states he was on 2 L when they initially presented, at time of evaluation patient tachypneic, was 77% on non-rebreather placed immediately on BiPAP. Patient states that he has been feeling kind of short of breath over the past few days. He had no other prodromal or associated symptoms. Flu/COVID/RSV negative. BNP was mildly elevated at 2120 and troponin minimally elevated at 0.05. In ED, he was given IV steroids, nebulizer therapy, Lasix. CTA chest showed no PE but showed bilateral ground-glass opacities parenchymal infiltrates and honeycomb emphysema changes superimposed on chronic fibrosis. Per ED attending, additional information was obtained by at bedside, she states that her firer marine at [place] (Dr. Hale) was starting patient on mycophenolate and prednisone over the past several months, paste that his symptoms have been getting worse for the past 2 weeks. Therefore 4 days ago it was decided that the patient would stop mycophenolate states he was at 1500 mg at that time states, states he is still currently on prednisone, 30 mg daily. Initial ABG: pH 7.38, pCO2 36.3, PO2 63. Patient was placed on BiPAP at 100% 10/5. Repeat ABG 1 hour later: pH 7.42, CO2 36, O2 109. Patient is DNR/DNI but ok for bipap. Hospital course: 11/06: Was able to weaned off of BiPAP overnight and is now on high-flow nasal cannula oxygen discussed with patient and concerns for number of etiologies for the clinical and radiographic worsening of his pulmonary function and anatomy including potential for opportunistic infections such as Pneumocystis, CMV, Aspergillus. Given the severe hypoxia and the timeline for PCP empiric Bactrim and steroids were added today, however our capacity at this facility to diagnose and treat opportunistic infections is limited. Transfer request for were put out to [facility] where his firer marine Dr. Rowley has privileges to consult and [facility] for escalation of care to include pulmonology and Infectious Disease 11/07: No response from [facility] but accepted to [facility] however there were no beds available. Case discussed with 3 firer marine's to from [facility] and Dr. Hale from [facility] all in agreement with current treatment with high-dose Solu- Medrol, doxycycline Bactrim and imipenem for coverage of Staphylococcus, atypicals, PCP, Pseudomonas and diuresis to keep patient ?dry? 11/08: Breathing less labored no fevers or chills overnight sodium 127 potassium 4.3 BUN 34 creatinine 0.85 which is stable 11/09 : remains off bipap but still on high flow at 45L and 60% 11/10: Continues to remain on transfer list, improving high flow at 40L at 30% FiO2 today. Repeat CXR without significant change compared to previous. Exam Vital Signs (past 8 hours): - 11/10/24 04:46 11/10/24 05:00 11/10/24 05:00 Temperature Pulse Rate 59 L 48 L Respiratory Rate 16 19 Blood Pressure 140/73 Pulse Oximetry 93 93 Oxygen Delivery Method Oxygen Flow Rate 11/10/24 06:00 11/10/24 06:00 11/10/24 07:00 Temperature Pulse Rate 46 L 48 L Respiratory Rate 17 19 Blood Pressure 130/71 Pulse Oximetry 94 93 Oxygen Delivery Method Oxygen Flow Rate 11/10/24 07:01 11/10/24 07:01 11/10/24 07:52 Temperature Pulse Rate 49 L 76 Respiratory Rate 21 18 Blood Pressure 150/75 H Pulse Oximetry 92 92 Oxygen Delivery Method Oxygen Flow Rate 11/10/24 08:00 11/10/24 08:20 11/10/24 08:50 Temperature Pulse Rate 63 50 L Respiratory Rate Blood Pressure 156/74 H 118/66 Pulse Oximetry Oxygen Delivery Method Heated High Flow Oxygen Flow Rate 11/10/24 11:44 11/10/24 12:00 Temperature 97.4 F L Pulse Rate 73 57 L Respiratory Rate 18 15 Blood Pressure 125/59 L Pulse Oximetry 94 92 Oxygen Delivery Method Oxygen Flow Rate 4 Fraction of Inspired Oxygen 60 Oxygen Delivery Method Heated High Flow Oxygen Flow Rate 4 Narrative Exam Narrative: Physical exam: Generally athletic and fit appearing elderly gentleman high-flow nasal cannula oxygen at the time of my examination Heart rate and rhythm regular Lungs have markedly diminished vesicular breath sounds and markedly shortened respiratory phases Abdomen nondistended Extremities no edema Neurologic was nonfocal Objective Labs 11/10/24 04:14 11/10/24 04:14 Labs: Laboratory Results - last 24 hr 11/10/24 04:14 WBC 11.2 H RBC 4.42 L Hgb 13.6 Hct 39.3 L MCV 88.8 MCH 30.8 MCHC 34.6 RDW 16.1 H Plt Count 80 L Neut % (Auto) 92.1 H Lymph % (Auto) 4.0 L [place] % (Auto) 3.7 Eos % (Auto) 0.0 L Baso % (Auto) 0.2 Neut # (Auto) 57961 H Lymph # (Auto) 400 L [place] # (Auto) 400 Eos # (Auto) 0 Baso # (Auto) 0 Sodium 126 L Potassium 4.1 Chloride 94 L Carbon Dioxide 26 BUN 35 H Creatinine 0.91 Estimated GFR > 60 BUN/Creatinine Ratio 38.5 H Glucose 199 H Calcium 8.2 L Magnesium 2.3 Total Bilirubin 0.8 AST 25 ALT 31 Alkaline Phosphatase 48 Total Protein 5.7 L Albumin 3.4 L Globulin 2.3 Albumin/Globulin Ratio 1.5 PFSH Medical History Physician orders for life-sustaining treatment (POLST) form indicates patient wish for no-rdz-icyfgvtrxoy status UIP (usual interstitial pneumonitis) Acute hypoxic respiratory failure Cor pulmonale, acute Cold feeling Bradycardia Hx of arterial ischemic stroke Pulmonary hypertension Secondhand smoke exposure History of tobacco use BPH w urinary obs/LUTS Nocturia more than twice per night Diabetic cataract of both eyes Eczema of right hand Hypothyroidism (acquired) Elevated TSH Multiple actinic keratoses Breakdown (mechanical) of other cardiac and vascular devices and implants, initial encounter Vitamin D deficiency Hyperlipidemia Substance abuse (~1967) Stroke (~2016) Measles (~1956) Kidney disease BPH (benign prostatic hyperplasia) Hemorrhoid Diabetes mellitus (~2016) Hypertension Surgical History [place] teeth removed (10/06/97) Anesthesia History of hernia repair (~2005) S/P LASIK surgery (~1997) History of ankle surgery (~1993) Family History Father Hypertension Stroke Mother Kidney disease Brother Kidney disease Social History marital status: number of children: 0 household members: significant other occupational status: previously employed Smoking Status: Former smoker Tobacco: How many years used: 18 alcohol intake: former substance use type: does not use caffeine: Yes Type(s) of exercise: walking frequency: 5-6 times per week duration: 15-30 minutes/day Assessment & Plan Assessment & Plan narrative: Assessment and plan: Possible sepsis secondary to bacterial PNA with thrombocytopenia and acute on chronic respiratory failure with hypoxia - continue cefepime, bactrim. Bactrim changed to PO on 11/09. - still on High flow O2, though slowly improving. Will remain listed for transfer unless off high flow. - high concern for PCP, started IV bactrim changed to PO on 11/09, dosing is 2 160/800 tabs TID after discussion with pharmacy. Steroids as noted below. Acute on chronic hypoxic respiratory failure in background setting of progressive idiopathic pulmonary fibrosis - Extensive diffuse ground-glass parenchymal infiltrates troubling in setting of acute hypoxic respiratory failure on admission. Possibly represents acute exacerbation of IPF vs broad infectious etiologies. - has been on solumedrol 125 mg q6, started de-escalation to to 60 q6 with ideal probably being oral prednisone for possible PCP at 40 mg BID. Consider continued taper tomorrow or switch to PO if on nasal cannula. - Transfer request referral to either [facility] where patient's firer marine has privileges after discussion with firer marine from both institutions and can be at tomorrow or to [facility] for higher level of care. Pending transfer since 11/05/24. - Patient is do not resuscitate but we will permit BiPAP (this is a very cogent quality of life decision for this patient given his progressive and probably terminal condition) - Elevated BNP and slight elevation troponin are probably due to acute on chronic cor pulmonale may technically be a demand perfusion mismatch (non STEMI type 2) given an initial treatment of Lasix 40 mg x 1 previous echocardiogram demonstrate a pulmonary artery pressure of 47 with normal left ventricular systolic function, repeat echocardiogram pending still today. - started on 20 mg Furosemide IV BID, will continue today. Consider changing back to PO (home dosing 20 mg daily) Type 2 diabetes oral medication * Hold oral medication for now * Sliding scale insulin as needed Hyponatremia, chronic - Na 126, continue to follow. Stable for multiple days. HTN - losartan home medication currently on hold. DVT prophylaxis * Enoxaparin Code status: * Do not resuscitate Dispo: Possible transfer pending bed availability. Likely multiple days in the hospital given degree of respiratory failure. Time-Based Coding :: [TOTAL MINUTES] spent with patient and on the chart (including review of chart, obtaining history, exam, reviewing outside data, placing orders, documenting exam and treatment plan, and counseling patient) on [DATE].
--- NOTE | 2024-11-10 14:17 | CM.DPC ---
DCP Cont: Per MD and RN, pt remains on HHFNC and continues to need hospital transfer for higher level of care needs and still awaiting available bed for transfer. Supportive spouse has been bedside. MARIAMA Spear
[2024-11-10] MEDS: DOCUSATE 100 MG CAPSULE 500 MG PO (21:38)
[2024-11-10] MEDS: INSULIN GLARGINE 100 UNIT/ML 3ML PEN 12 UNIT SUBCUT (21:51)
[2024-11-11] VITALS (35 sets, daily range): BP systolic 122–155; BP diastolic 62–81; PULSE 44–73; RESP 18–20; TEMP 36.3–36.6; O2SAT 85–95
[2024-11-11] MEDS: methylPREDNISolone 125 MG/2 ML VIAL 60 MG IV ×4 (00:48→17:45)
[2024-11-11] MEDS: CEFEPIME 2 GM in SODIUM CHLORIDE 0.9% 100 ML IV ×2 (03:00→14:59)
[2024-11-11] MEDS: LEVOTHYROXINE 50 MCG TABLET PO (06:39)
[2024-11-11] MEDS: PANTOPRAZOLE DR 40 MG TABLET PO (06:39)
[2024-11-11] MEDS: MAGNESIUM OXIDE 400 MG TABLET PO ×2 (08:29→21:33)
[2024-11-11] MEDS: LABETALOL 100 MG TABLET PO (08:29)
[2024-11-11] MEDS: TRIMETH/SULFA 160/800 (DS) TABLET 2 TAB PO ×3 (08:29→21:33)
[2024-11-11] MEDS: TERAZOSIN 1 MG CAPSULE 2 MG PO (08:29)
[2024-11-11] MEDS: TAMSULOSIN 0.4 MG CAPSULE 0.8 MG PO ×2 (08:31→21:33)
[2024-11-11] MEDS: ASPIRIN EC 81 MG TABLET PO (08:31)
[2024-11-11] MEDS: FUROSEMIDE 20 MG/2 ML VIAL IV ×2 (08:31→21:33)
[2024-11-11] MEDS: MAGNESIUM HYDROXIDE 30 ML UDC PO (08:32)
[2024-11-11] MEDS: INSULIN LISPRO 100 UNIT/ML 3ML VIAL SUBCUT ×5 (08:32→21:30)
[2024-11-11 08:55] LABS: Add Manual Diff / Slide Review NO; Basophils Absolute Auto 0 /uL (0-100); Basophils Percent Auto 0.1 % (0-2); Eosinophils Absolute Auto 0 /uL (0-450); Eosinophils Percent Auto 0.1 % (2-4); Hematocrit 43.2 % (41-53); Hemoglobin 14.8 g/dL (13.5-17.5); Lymphocytes Absolute Auto 500 /uL (1100-4500); Lymphocytes Percent Auto 5.1 % (25-40); Mean Corpuscular HGB Conc 34.3 % (30-36); Mean Corpuscular Hemoglobin 30.7 PG (26-34); Mean Corpuscular Volume 89.6 fL (80-100); Monocytes Absolute Auto 400 /uL (0-900); Monocytes Percent Auto 4.2 % (3-14); Neutrophils Absolute Auto 9300 /uL (1500-7000); Neutrophils Percent Auto 90.5 % (50-75); Platelet Count 89 X10^3/uL (150-400); Red Blood Cell Count 4.82 X10^6/uL (4.5-5.9); Red Cell Distribution Width 16.3 % (11.6-14.8); White Blood Cell Count 10.3 X10^3/uL (4.5-11.0)
[2024-11-11 09:17] LABS: Alanine Aminotransferase 33 IU/L (<50); Albumin 3.6 g/dL (3.5-5.0); Albumin Globulin Ratio 1.6 (1.0-2.8); Alkaline Phosphatase 48 U/L (38-126); Aspartate Aminotransferase 26 IU/L (17-59); BUN Creatinine Ratio 36.3 (6-22); Bilirubin Total 0.8 mg/dL (0.2-1.3); Blood Urea Nitrogen 37 mg/dL (9-20); Calcium 8.7 mg/dL (8.4-10.2); Carbon Dioxide 28 mmol/L (22-32); Chloride 94 mmol/L (98-107); Estimated Glomerular Filt Rate > 60 mL/min (>60); Globulin 2.2 g/dL (1.7-4.1); Glucose 121 mg/dL (70-99); HEMOLYSIS < 15 (0-50); Magnesium 2.5 mg/dL (1.6-2.3); Potassium 5.5 mmol/L (3.4-5.1); Sodium 128 mmol/L (137-145); Total Protein 5.8 g/dL (6.3-8.2)
[2024-11-11] MEDS: ENOXAPARIN 40 MG/0.4 ML SYRINGE SUBCUT (09:40)
[2024-11-11] MEDS: FLEETS ENEMA 1 EACH PR (09:57)
--- NOTE | 2024-11-11 11:07 | P.PN_ITS ---
Subjective Subjective Date Patient Seen: 11/11/24 Time Patient Seen: 08:00 Interval history: Chief complaint: Acute dyspnea with acute on chronic hypoxic respiratory failure 3 weeks after starting mycophenolate for worsening interstitial pulmonary fibrosis Dr. Geoffrey Munguia History of present illness: 11/06/2024: 74M with PMH of UIP with chronic hypoxic respiratory failure, ischemic CVA, pulmonary HTN, past TUD, BPH with LUTS, DM2, HTN, hyperlipidemia, hypothyroidism presents from home for acute respiratory distress according to medics patient was allegedly 15% on room air when they arrived, he normally uses oxygen as needed, states he was on 2 L when they initially presented, at time of evaluation patient tachypneic, was 77% on non-rebreather placed immediately on BiPAP. Patient states that he has been feeling kind of short of breath over the past few days. He had no other prodromal or associated symptoms. Flu/COVID/RSV negative. BNP was mildly elevated at 2120 and troponin minimally elevated at 0.05. In ED, he was given IV steroids, nebulizer therapy, Lasix. CTA chest showed no PE but showed bilateral ground-glass opacities parenchymal infiltrates and honeycomb emphysema changes superimposed on chronic fibrosis. Per ED attending, additional information was obtained by at bedside, she states that her fermenter at [place] (Dr. Hale) was starting patient on mycophenolate and prednisone over the past several months, paste that his symptoms have been getting worse for the past 2 weeks. Therefore 4 days ago it was decided that the patient would stop mycophenolate states he was at 1500 mg at that time states, states he is still currently on prednisone, 30 mg daily. Initial ABG: pH 7.38, pCO2 36.3, PO2 63. Patient was placed on BiPAP at 100% 10/5. Repeat ABG 1 hour later: pH 7.42, CO2 36, O2 109. Patient is DNR/DNI but ok for bipap. Hospital course: 11/06: Was able to weaned off of BiPAP overnight and is now on high-flow nasal cannula oxygen discussed with patient and concerns for number of etiologies for the clinical and radiographic worsening of his pulmonary function and anatomy including potential for opportunistic infections such as Pneumocystis, CMV, Aspergillus. Given the severe hypoxia and the timeline for PCP empiric Bactrim and steroids were added today, however our capacity at this facility to diagnose and treat opportunistic infections is limited. Transfer request for were put out to [facility] where his fermenter Dr. Rowley has privileges to consult and [facility] for escalation of care to include pulmonology and Infectious Disease 11/07: No response from [facility] but accepted to [facility] however there were no beds available. Case discussed with 3 fermenter's to from [facility] and Dr. Hale from [facility] all in agreement with current treatment with high-dose Solu- Medrol, doxycycline Bactrim and imipenem for coverage of Staphylococcus, atypicals, PCP, Pseudomonas and diuresis to keep patient ?dry? 11/08: Breathing less labored no fevers or chills overnight sodium 127 potassium 4.3 BUN 34 creatinine 0.85 which is stable 11/09 : remains off bipap but still on high flow at 45L and 60% 11/10: Continues to remain on transfer list, improving high flow at 40L at 30% FiO2 today. Repeat CXR without significant change compared to previous. 11/11: The patient continues to be dyspneic with minimal exertion. Transfer to a tertiary facility has put on hold by receding facilities due to medical stability in last 24 hours. He has not had a bowel movement in 6 days. Exam Vital Signs (past 8 hours): - 11/11/24 04:00 11/11/24 05:00 11/11/24 06:00 Temperature Pulse Rate 49 L 45 L 50 L Respiratory Rate Blood Pressure Pulse Oximetry 90 L 94 93 Oxygen Delivery Method 11/11/24 06:21 11/11/24 06:21 11/11/24 06:31 Temperature Pulse Rate 51 L 48 L Respiratory Rate Blood Pressure 143/77 H 128/62 Pulse Oximetry 92 Oxygen Delivery Method 11/11/24 08:00 11/11/24 08:25 11/11/24 08:29 Temperature Pulse Rate 54 L 58 L Respiratory Rate 18 Blood Pressure 143/77 H 153/78 H Pulse Oximetry 92 Oxygen Delivery Method Heated High Flow 11/11/24 08:59 11/11/24 09:00 Temperature 97.3 F L Pulse Rate 65 Respiratory Rate Blood Pressure Pulse Oximetry Oxygen Delivery Method Fraction of Inspired Oxygen 30 Oxygen Delivery Method Heated High Flow Oxygen Flow Rate 40 Narrative Exam Narrative: Physical exam: Generally athletic and fit appearing elderly gentleman high-flow nasal cannula oxygen at the time of my examination Heart rate and rhythm regular Lungs have markedly diminished vesicular breath sounds and markedly shortened respiratory phases Abdomen nondistended Extremities no edema Neurologic was nonfocal Objective Imaging *: Radiologist's impression: 1. Chest x-ray 11/06/2024: Interstitial prominence is seen throughout. Low lung volumes. This patient has known chronic fibrosis. Superimposed pulmonary edema at is suspected and is better seen on the subsequently performed CT examination. 2. Chest CTA 11/06/2024: No pulmonary embolus. Significant baseline pulmonary fibrosis with honeycombing can be seen. Superimposed ground-glass opacities can be seen, which are attributed to pulmonary edema, although viral infection is possible. The main pulmonary trunk is mildly enlarged, which is consistent with pulmonary artery hypertension. Additional findings: Prior granulomatous exposure. 3. Chest x-ray 11/10/2024: No significant change. Continued follow-up is needed. Labs 11/11/24 08:04 11/11/24 08:04 Labs: Laboratory Results - last 24 hr 11/11/24 08:04 WBC 10.3 RBC 4.82 Hgb 14.8 Hct 43.2 MCV 89.6 MCH 30.7 MCHC 34.3 RDW 16.3 H Plt Count 89 L Neut % (Auto) 90.5 H Lymph % (Auto) 5.1 L [place] % (Auto) 4.2 Eos % (Auto) 0.1 L Baso % (Auto) 0.1 Neut # (Auto) 9300 H Lymph # (Auto) 500 L [place] # (Auto) 400 Eos # (Auto) 0 Baso # (Auto) 0 Sodium 128 L Potassium 5.5 H D Chloride 94 L Carbon Dioxide 28 BUN 37 H Creatinine 1.02 Estimated GFR > 60 BUN/Creatinine Ratio 36.3 H Glucose 121 H Calcium 8.7 Magnesium 2.5 H Total Bilirubin 0.8 AST 26 ALT 33 Alkaline Phosphatase 48 Total Protein 5.8 L Albumin 3.6 Globulin 2.2 Albumin/Globulin Ratio 1.6 [facility] Medical History Acute hypoxic respiratory failure BPH (benign prostatic hyperplasia) BPH w urinary obs/LUTS Bradycardia Breakdown (mechanical) of other cardiac and vascular devices and implants, initial encounter Cold feeling Cor pulmonale, acute Diabetes mellitus (~2017) Diabetic cataract of both eyes Eczema of right hand Elevated TSH Hemorrhoid History of tobacco use Hx of arterial ischemic stroke Hyperlipidemia Hypertension Hypothyroidism (acquired) Kidney disease Measles (~1956) Multiple actinic keratoses Nocturia more than twice per night Physician orders for life-sustaining treatment (POLST) form indicates patient wish for jv-prf-ovptgaqxsuf status Pulmonary hypertension Secondhand smoke exposure Stroke (~2016) Substance abuse (~1967) UIP (usual interstitial pneumonitis) Vitamin D deficiency Surgical History Anesthesia History of ankle surgery (~1993) History of hernia repair (~2005) S/P LASIK surgery (~1997) [place] teeth removed (10/06/97) Family History Father Hypertension Stroke Mother Kidney disease Brother Kidney disease Social History marital status: number of children: 0 household members: significant other occupational status: previously employed Smoking Status: Former smoker Tobacco: How many years used: 18 alcohol intake: former substance use type: does not use caffeine: Yes Type(s) of exercise: walking frequency: 5-6 times per week duration: 15-30 minutes/day Assessment & Plan Assessment & Plan narrative: 1. Possible sepsis secondary to bacterial PNA with thrombocytopenia and acute on chronic respiratory failure with hypoxia - continue cefepime and Bactrim started 11/06. Bactrim changed to PO on 11/09. - still on High flow O2, though slowly improving. Will remain listed for transfer unless off high flow. - high concern for PCP, started IV bactrim changed to PO on 11/09, dosing is 2 160/800 tabs TID after discussion with pharmacy. Steroids as noted below. 2. Acute on chronic hypoxic respiratory failure in background setting of progressive idiopathic pulmonary fibrosis - Extensive diffuse ground-glass parenchymal infiltrates troubling in setting of acute hypoxic respiratory failure on admission. Possibly represents acute exacerbation of IPF vs broad infectious etiologies. - has been on solumedrol 125 mg q6, started de-escalation to to 60 q6 with ideal probably being oral prednisone for possible PCP at 40 mg BID. Consider continued taper tomorrow or switch to PO if on nasal cannula. - Transfer request referral to either [facility] where patient's fermenter has privileges after discussion with fermenter from both institutions and can be at tomorrow or to [facility] for higher level of care. Pending transfer since 11/05/24, currently on hold. Attempts to contact primary fermenter pending today. - Patient is do not resuscitate but we will permit BiPAP (this is a very cogent quality of life decision for this patient given his progressive and probably terminal condition) - Elevated BNP and slight elevation troponin are probably due to acute on chronic cor pulmonale may technically be a demand perfusion mismatch (non STEMI type 2) given an initial treatment of Lasix 40 mg x 1 previous echocardiogram demonstrate a pulmonary artery pressure of 47 with normal left ventricular systolic function, repeat echocardiogram pending still today. - started on 20 mg Furosemide IV BID, will continue again today. Consider changing back to PO (home dosing 20 mg daily) 3. Type 2 diabetes oral medication * Hold oral medication for now * Sliding scale insulin as needed 4. Hyponatremia, chronic - Na 126, continue to follow. Stable for multiple days. 5. HTN - losartan home medication currently on hold. Consider restarting tomorrow if blood pressure is persistently elevated. DVT prophylaxis * Enoxaparin Code status: * Do not resuscitate Dispo: Possible transfer pending bed availability. Stable in the past 24 hours. Likely multiple days in the hospital given degree of respiratory failure. PROFEE Director Account Management Document charge(s): No Charge Codes Subsequent inpatient/observation care: [id number]
--- NOTE | 2024-11-11 11:50 | OT.IPNOTE ---
Spoke to nursing and pt on heated high flow still and get very dyspnic after minimal exertion. Best to hold OT eval today.
--- NOTE | 2024-11-11 16:24 | PT-IP ANOTE ---
PT eval order received. EMR reviewed. checked with nurse and informed that pt is on high flow O2 at 40L and O2 sat still goes down to 86-88% with small activities. informed nurse and hospitalist that PT eval will be on hold today and will rechecked tomorrow. pt still not medically stable to do PT and nursing staff can mobilize pt as tolerated at this time.
[2024-11-11] MEDS: INSULIN GLARGINE 100 UNIT/ML 3ML PEN 12 UNIT SUBCUT (21:30)
[2024-11-12] VITALS (21 sets, daily range): BP systolic 135–166; BP diastolic 65–76; PULSE 50–65; RESP 16–22; TEMP 36.1–36.6; O2SAT 80–94
[2024-11-12] MEDS: methylPREDNISolone 125 MG/2 ML VIAL 60 MG IV ×5 (00:06→23:50)
[2024-11-12] MEDS: CEFEPIME 2 GM in SODIUM CHLORIDE 0.9% 100 ML IV ×2 (03:33→15:13)
[2024-11-12 05:13] LABS: Add Manual Diff / Slide Review NO; Basophils Absolute Auto 0 /uL (0-100); Basophils Percent Auto 0.1 % (0-2); Eosinophils Absolute Auto 0 /uL (0-450); Hematocrit 42.2 % (41-53); Hemoglobin 14.5 g/dL (13.5-17.5); Lymphocytes Absolute Auto 600 /uL (1100-4500); Lymphocytes Percent Auto 4.8 % (25-40); Mean Corpuscular HGB Conc 34.2 % (30-36); Mean Corpuscular Hemoglobin 30.5 PG (26-34); Mean Corpuscular Volume 89.2 fL (80-100); Monocytes Absolute Auto 300 /uL (0-900); Neutrophils Absolute Auto 10600 /uL (1500-7000); Neutrophils Percent Auto 92.1 % (50-75); Platelet Count 88 X10^3/uL (150-400); Red Blood Cell Count 4.74 X10^6/uL (4.5-5.9); Red Cell Distribution Width 15.7 % (11.6-14.8); White Blood Cell Count 11.5 X10^3/uL (4.5-11.0)
[2024-11-12 05:28] LABS: Alanine Aminotransferase 43 IU/L (<50); Albumin 3.7 g/dL (3.5-5.0); Albumin Globulin Ratio 1.5 (1.0-2.8); Alkaline Phosphatase 47 U/L (38-126); Aspartate Aminotransferase 32 IU/L (17-59); Bilirubin Total 0.7 mg/dL (0.2-1.3); Blood Urea Nitrogen 37 mg/dL (9-20); Calcium 8.3 mg/dL (8.4-10.2); Carbon Dioxide 27 mmol/L (22-32); Chloride 93 mmol/L (98-107); Estimated Glomerular Filt Rate > 60 mL/min (>60); Globulin 2.4 g/dL (1.7-4.1); Glucose 134 mg/dL (70-99); HEMOLYSIS < 15 (0-50); Magnesium 2.6 mg/dL (1.6-2.3); Potassium 4.6 mmol/L (3.4-5.1); Sodium 126 mmol/L (137-145); Total Protein 6.1 g/dL (6.3-8.2)
[2024-11-12] MEDS: LEVOTHYROXINE 50 MCG TABLET PO (06:41)
[2024-11-12] MEDS: PANTOPRAZOLE DR 40 MG TABLET PO (06:41)
[2024-11-12] MEDS: TERAZOSIN 1 MG CAPSULE 2 MG PO ×2 (08:43→21:19)
[2024-11-12] MEDS: TRIMETH/SULFA 160/800 (DS) TABLET 2 TAB PO ×3 (08:44→21:19)
[2024-11-12] MEDS: ASPIRIN EC 81 MG TABLET PO (08:44)
[2024-11-12] MEDS: TAMSULOSIN 0.4 MG CAPSULE 0.8 MG PO ×2 (08:44→21:19)
[2024-11-12] MEDS: MAGNESIUM OXIDE 400 MG TABLET PO ×2 (08:44→21:19)
[2024-11-12] MEDS: FUROSEMIDE 20 MG/2 ML VIAL IV (08:44)
[2024-11-12] MEDS: ENOXAPARIN 40 MG/0.4 ML SYRINGE SUBCUT (08:44)
[2024-11-12] MEDS: INSULIN LISPRO 100 UNIT/ML 3ML VIAL SUBCUT ×6 (08:45→17:07)
[2024-11-12] MEDS: polyethylene glycoL 3350 17 GM POWD.PACK PO (08:47)
--- NOTE | 2024-11-12 13:32 | PT-IP ANOTE ---
checked with nurse and pt still on high flow O2 at 30L and desats at ~ 87% with bed mobility. Talked with hospitalist during rounds and pt not medically appropriate for PT at this time. will d/c PT eval order.
--- NOTE | 2024-11-12 14:22 | CM.DPNOTE ---
DCP Cont Reviewed chart. Patient discussed in multidisciplinary rounds. Patient remains on HHF, therapies on hold for now. Patient is slowly improving. Plan remains discharge home w/family w/close outpatient follow up. Therapy eval will help with dispo planning, when medically appropriate. Social work team following clinical course closely. KALYANI
--- NOTE | 2024-11-12 18:32 | PM.PN.1 ---
Subjective Subjective Interval history: 74-year-old male with acute on chronic hypoxic respiratory failure. He has known UIP on chronic mycophenolate, history of ischemic stroke, pulmonary hypertension, diabetes mellitus type 2, and hypertension. At baseline, he uses 1.5 L of oxygen at night. On the date of admission, he had 77% O2 sats on a non-rebreather and subsequently required BiPAP. He is currently requiring high dose Solu-Medrol, doxycycline, Bactrim, and imipenem to cover staph, atypical bacteria, Pneumocystis jiroveci pneumonia, Pseudomonas, and recommendations are to keep him ?dry?. With this treatment, he was noted to be slightly better on November 08. On November 09 he was on high-flow oxygen at 45 L. On November 10 he was on 40 L. on November 11, he remained at 40 L with sats of 90-94%. He continues to have dyspnea with minimal exertion. Today he has been weaned down to 31 L. RT is discussing the possibility of trying to transition him to 15 L off of heated high-flow this evening. He had lots of questions today about how long he might be in the hospital, whether he might be transferred still, and what his disease process would look like upon returning home, whether he would continue to need oxygen long-term, etc. Exam Vital Signs (past 8 hours): - 11/12/24 12:00 11/12/24 12:26 11/12/24 16:00 Temperature 97.7 F 97.8 F Pulse Rate 56 L 60 58 L Respiratory Rate 17 20 16 Blood Pressure 144/74 H 144/74 H 146/76 H Pulse Oximetry 91 92 91 11/12/24 16:31 Temperature Pulse Rate 64 Respiratory Rate 20 Blood Pressure 146/76 H Pulse Oximetry 92 Fraction of Inspired Oxygen 30 Oxygen Delivery Method Heated High Flow Oxygen Flow Rate 40 Narrative Exam Narrative: GEN: Very pleasant middle-aged male, Alert and oriented x 3, NAD HEENT:NC, Face symmetric CHEST: Respiratory excursions symmetric, coarse bibasilar crackles, otherwise clear to auscultation bilaterally CV: RRR, no M/R/G ABD: Soft, NT/ND, BT present in all 4 quadrants, no organomegaly or masses EXTR: warm, well perfused, no C/C/E SKIN: warm and dry, no rash NEURO: Alert and oriented x 3, nonfocal Objective Labs 11/12/24 04:20 11/12/24 04:20 Labs: Laboratory Results - last 24 hr 11/12/24 04:20 WBC 11.5 H RBC 4.74 Hgb 14.5 Hct 42.2 MCV 89.2 MCH 30.5 MCHC 34.2 RDW 15.7 H Plt Count 88 L Neut % (Auto) 92.1 H Lymph % (Auto) 4.8 L Alexander % (Auto) 3.0 Eos % (Auto) 0.0 L Baso % (Auto) 0.1 Neut # (Auto) 59199 H Lymph # (Auto) 600 L Alexander # (Auto) 300 Eos # (Auto) 0 Baso # (Auto) 0 Sodium 126 L Potassium 4.6 Chloride 93 L Carbon Dioxide 27 BUN 37 H Creatinine 1.00 Estimated GFR > 60 BUN/Creatinine Ratio 37.0 H Glucose 134 H Calcium 8.3 L Magnesium 2.6 H Total Bilirubin 0.7 AST 32 ALT 43 Alkaline Phosphatase 47 Total Protein 6.1 L Albumin 3.7 Globulin 2.4 Albumin/Globulin Ratio 1.5 PFSH Medical History Acute hypoxic respiratory failure BPH (benign prostatic hyperplasia) BPH w urinary obs/LUTS Bradycardia Breakdown (mechanical) of other cardiac and vascular devices and implants, initial encounter Cold feeling Cor pulmonale, acute Diabetes mellitus (~2016) Diabetic cataract of both eyes Eczema of right hand Elevated TSH Hemorrhoid History of tobacco use Hx of arterial ischemic stroke Hyperlipidemia Hypertension Hypothyroidism (acquired) Kidney disease Measles (~1956) Multiple actinic keratoses Nocturia more than twice per night Physician orders for life-sustaining treatment (POLST) form indicates patient wish for zf-eqv-wcqdjglvdrh status Pulmonary hypertension Secondhand smoke exposure Stroke (~2016) Substance abuse (~1967) UIP (usual interstitial pneumonitis) Vitamin D deficiency Surgical History Anesthesia History of ankle surgery (~1993) History of hernia repair (~2005) S/P LASIK surgery (~1997) [place] teeth removed (10/06/97) Family History Father Hypertension Stroke Mother Kidney disease Brother Kidney disease Social History marital status: number of children: 0 household members: significant other occupational status: previously employed Smoking Status: Former smoker Tobacco: How many years used: 18 alcohol intake: former substance use type: does not use caffeine: Yes Type(s) of exercise: walking frequency: 5-6 times per week duration: 15-30 minutes/day Assessment & Plan Assessment & Plan narrative: 1. Acute on chronic hypoxic respiratory failure Patient continues to require heated high-flow oxygen but his oxygen need has decreased. Presently on 31 L. he may be able to transition off of heated high-flow later today. However, he notes each time to have weaned him he does have increased chest tightness and shortness of breath. We did have a long discussion about what his criteria for discharge would likely be. Explained limitations with home O2. Advised my best guess is he would need to be at 6-8 L of oxygen at rest and no more than 10 L with activity given limitations of home O2 concentrator. Even if he used two 10L concentrators, he likely could not get to more than about 13 or 14 L and that flow rate would be difficult to predict. He expresses understanding. Advised I can not know for sure what his long-term oxygen needs are, whether he will be oxygen dependent, but I expect he will be. Also advised I would expect he will have a higher flow oxygen need than he previously did. I also would expect he will have a 24 hour oxygen need compared to before when he only used nocturnal oxygen. He is uncertain how he feels about his quality of life if he has to wear oxygen all of the time. Encouraged him to look at each step in his progress as individual goals rather than trying to picture what his life will be like after he returns home. For now, encouraged him to look at this very next goal which is to get off of heated high-flow. Advised that his expectation of discharge is somewhat difficult to predict. This could take another week or longer before he is successfully able to discharge home. He expresses understanding. Also advised that as of now, there are no plans to transfer to a tertiary care hospital as he has stabilized. Continue present treatment with furosemide, Bactrim, Solu-Medrol, cefepime. 2. UIP As above. Remains on Bactrim for PJP prophylaxis given high dose steroids. 3. Type 2 diabetes Continue sliding scale. 4. Hyponatremia Sodium is 126 today down from 128 yesterday. However it was 126 the day prior. BUN has been increasing from 20/4 on the up to 37 now. Will decrease furosemide to once daily dosing and monitor. 5. Hypertension Mildly hypertensive. Continue labetalol, terazosin, furosemide. Code status DNR DNI. He did ask about bronchoscopy and why people are telling him he should not have 1. Reviewed that the risks of undergoing anesthesia and bronchoscopy would greatly outweigh any benefits. Advised that at this point a biopsy would only show evidence of his fibrosis and there would not be any significant reason to obtain deep cultures as he is improving and not producing much in the way of sputum. He expressed understanding. Prophylaxis Continue Lovenox Disposition Continue heated high-flow oxygen. Continue acute care. Time-Based Coding :: [TOTAL MINUTES] spent with patient and on the chart (including review of chart, obtaining history, exam, reviewing outside data, placing orders, documenting exam and treatment plan, and counseling patient) on [DATE].
[2024-11-12] MEDS: INSULIN GLARGINE 100 UNIT/ML 3ML PEN 12 UNIT SUBCUT (21:19)
[2024-11-13] VITALS (35 sets, daily range): BP systolic 130–176; BP diastolic 63–81; PULSE 47–76; RESP 17–22; TEMP 35.8–36.4; O2SAT 77–97
[2024-11-13] MEDS: CEFEPIME 2 GM in SODIUM CHLORIDE 0.9% 100 ML IV (02:42)
[2024-11-13 05:17] LABS: Add Manual Diff / Slide Review NO; Basophils Absolute Auto 0 /uL (0-100); Eosinophils Absolute Auto 0 /uL (0-450); Eosinophils Percent Auto 0.1 % (2-4); Hematocrit 40.5 % (41-53); Hemoglobin 14.1 g/dL (13.5-17.5); Lymphocytes Absolute Auto 500 /uL (1100-4500); Lymphocytes Percent Auto 4.3 % (25-40); Mean Corpuscular HGB Conc 34.8 % (30-36); Mean Corpuscular Hemoglobin 30.9 PG (26-34); Mean Corpuscular Volume 88.8 fL (80-100); Monocytes Absolute Auto 400 /uL (0-900); Monocytes Percent Auto 3.5 % (3-14); Neutrophils Absolute Auto 11200 /uL (1500-7000); Neutrophils Percent Auto 92.1 % (50-75); Platelet Count 93 X10^3/uL (150-400); Red Blood Cell Count 4.56 X10^6/uL (4.5-5.9); Red Cell Distribution Width 15.8 % (11.6-14.8); White Blood Cell Count 12.1 X10^3/uL (4.5-11.0)
[2024-11-13 05:23] LABS: BUN Creatinine Ratio 42.3 (6-22); Blood Urea Nitrogen 41 mg/dL (9-20); Calcium 8.4 mg/dL (8.4-10.2); Carbon Dioxide 26 mmol/L (22-32); Chloride 96 mmol/L (98-107); Estimated Glomerular Filt Rate > 60 mL/min (>60); Glucose 162 mg/dL (70-99); HEMOLYSIS < 15 (0-50); Potassium 4.8 mmol/L (3.4-5.1); Sodium 126 mmol/L (137-145)
[2024-11-13] MEDS: PANTOPRAZOLE DR 40 MG TABLET PO (06:12)
[2024-11-13] MEDS: LEVOTHYROXINE 50 MCG TABLET PO (06:12)
[2024-11-13] MEDS: methylPREDNISolone 125 MG/2 ML VIAL 60 MG IV ×3 (06:12→21:45)
[2024-11-13] MEDS: INSULIN LISPRO 100 UNIT/ML 3ML VIAL SUBCUT ×6 (08:37→17:04)
[2024-11-13] MEDS: TERAZOSIN 1 MG CAPSULE 2 MG PO ×2 (08:38→21:45)
[2024-11-13] MEDS: FUROSEMIDE 20 MG/2 ML VIAL IV (08:39)
[2024-11-13] MEDS: ASPIRIN EC 81 MG TABLET PO (08:39)
[2024-11-13] MEDS: MAGNESIUM OXIDE 400 MG TABLET PO ×2 (08:39→21:45)
[2024-11-13] MEDS: TAMSULOSIN 0.4 MG CAPSULE 0.8 MG PO ×2 (08:39→21:45)
[2024-11-13] MEDS: TRIMETH/SULFA 160/800 (DS) TABLET 2 TAB PO ×3 (08:39→21:45)
[2024-11-13] MEDS: ENOXAPARIN 40 MG/0.4 ML SYRINGE SUBCUT (08:40)
[2024-11-13] MEDS: polyethylene glycoL 3350 17 GM POWD.PACK PO (08:40)
[2024-11-13] MEDS: MAGNESIUM HYDROXIDE 30 ML UDC PO (08:40)
[2024-11-13] MEDS: SODIUM CHLORIDE 0.9% FLUSH 10 ML IV (08:43)
--- NOTE | 2024-11-13 11:06 | CM.DPC ---
DCP Cont: Per MD, lengthy discussion with pt and spouse bedside yesterday regarding the need to wean pt off high flow and down to around 6-8LO2 at rest with up to 10LO2 with exertion before he could safely d/c home (or to SNF if too deconditioned) and MD does not feel pt medically appropriate yet to work with PT/OT as remains on high flow O2 and desats with movement. NICOLLE made initial referral to [facility] to fax [phone] to review to determine if pt meets criteria for LTAC in case pt cannot be weaned off high flow and left msg on admissions cell phone [phone] requesting review. Plan: NICOLLE to follow closely for slow medical progress for pt to be stable enough to work with PT/OT to determine d/c needs and [facility] review to determine if LTAC an option if pt not improving. MARIAMA Spear
--- NOTE | 2024-11-13 13:37 | P.PN_ITS ---
Subjective Subjective Interval history: 74-year-old male with acute on chronic hypoxic respiratory failure. He has known UIP on chronic mycophenolate, history of ischemic stroke, pulmonary hypertension, diabetes mellitus type 2, and hypertension. At baseline, he uses 1.5 L of oxygen at night. On the date of admission, he had 77% O2 sats on a non-rebreather and subsequently required BiPAP. He is currently requiring high dose Solu-Medrol, doxycycline, Bactrim, and imipenem to cover staph, atypical bacteria, Pneumocystis jiroveci pneumonia, Pseudomonas, and recommendations are to keep him ?dry?. With this treatment, he was noted to be slightly better on November 08. On November 09 he was on high-flow oxygen at 45 L. On November 10 he was on 40 L. on November 11, he remained at 40 L with sats of 90-94%. He continues to have dyspnea with minimal exertion. Yesterday he has been weaned down to 31 L. RT is discussing the possibility of trying to transition him to 15 L off of heated high-flow. Patient reports he is feeling about the same today. He slept about 3 hours last night which is better than he slept the prior night. He clarified for me today that he wants to have a DNR code status but would put the DNR on hold if he required a procedure such as bronchoscopy or a surgery and there were complications. Exam Vital Signs (past 8 hours): - 11/13/24 07:00 11/13/24 08:00 11/13/24 08:40 Temperature 97.5 F L Pulse Rate 51 L 57 L Respiratory Rate 17 Blood Pressure 153/79 H Pulse Oximetry 92 Oxygen Delivery Method Heated High Flow Oxygen Flow Rate 30 Fraction of Inspired Oxygen 30 11/13/24 10:27 11/13/24 12:00 Temperature Pulse Rate 70 Respiratory Rate 20 18 Blood Pressure 130/74 Pulse Oximetry 91 91 Oxygen Delivery Method Oxygen Flow Rate Fraction of Inspired Oxygen Fraction of Inspired Oxygen 30 Oxygen Delivery Method Heated High Flow Oxygen Flow Rate 30 Narrative Exam Narrative: GEN: Very pleasant middle-aged male, Alert and oriented x 3, NAD HEENT:NC, Face symmetric CHEST: Respiratory excursions symmetric, coarse bibasilar crackles, otherwise clear to auscultation bilaterally CV: RRR, no M/R/G ABD: Soft, NT/ND, BT present in all 4 quadrants, no organomegaly or masses EXTR: warm, well perfused, no C/C/E SKIN: warm and dry, no rash NEURO: Alert and oriented x 3, nonfocal Objective Labs 11/13/24 04:20 11/13/24 04:20 Labs: Laboratory Results - last 24 hr 11/13/24 04:20 WBC 12.1 H RBC 4.56 Hgb 14.1 Hct 40.5 L MCV 88.8 MCH 30.9 MCHC 34.8 RDW 15.8 H Plt Count 93 L Neut % (Auto) 92.1 H Lymph % (Auto) 4.3 L Emery % (Auto) 3.5 Eos % (Auto) 0.1 L Baso % (Auto) 0.0 Neut # (Auto) 03355 H Lymph # (Auto) 500 L Emery # (Auto) 400 Eos # (Auto) 0 Baso # (Auto) 0 Sodium 126 L Potassium 4.8 Chloride 96 L Carbon Dioxide 26 BUN 41 H Creatinine 0.97 Estimated GFR > 60 BUN/Creatinine Ratio 42.3 H Glucose 162 H Calcium 8.4 PFSH Medical History Acute hypoxic respiratory failure BPH (benign prostatic hyperplasia) BPH w urinary obs/LUTS Bradycardia Breakdown (mechanical) of other cardiac and vascular devices and implants, initial encounter Cold feeling Cor pulmonale, acute Diabetes mellitus (~2016) Diabetic cataract of both eyes Eczema of right hand Elevated TSH Hemorrhoid History of tobacco use Hx of arterial ischemic stroke Hyperlipidemia Hypertension Hypothyroidism (acquired) Kidney disease Measles (~1956) Multiple actinic keratoses Nocturia more than twice per night Physician orders for life-sustaining treatment (POLST) form indicates patient wish for vw-wuv-fobmwxymjoq status Pulmonary hypertension Secondhand smoke exposure Stroke (~2016) Substance abuse (~1967) UIP (usual interstitial pneumonitis) Vitamin D deficiency Surgical History Anesthesia History of ankle surgery (~1993) History of hernia repair (~2005) S/P LASIK surgery (~1997) [place] teeth removed (10/06/97) Family History Father Hypertension Stroke Mother Kidney disease Brother Kidney disease Social History marital status: number of children: 0 household members: significant other occupational status: previously employed Smoking Status: Former smoker Tobacco: How many years used: 18 alcohol intake: former substance use type: does not use caffeine: Yes Type(s) of exercise: walking frequency: 5-6 times per week duration: 15-30 minutes/day Assessment & Plan Assessment & Plan narrative: 1. Acute on chronic hypoxic respiratory failure Patient continues to require heated high-flow oxygen but his oxygen need has decreased. Presently on 31 L. he may be able to transition off of heated high- flow later today. However, he notes each time to have weaned him he does have increased chest tightness and shortness of breath. As discussed yesterday, I suspect in order to discharge from the hospital his resting O2 would likely need to be 6-8 L of oxygen and no more than 10 L or so with activity given the limitations of a home oxygen concentrator. Even if he had to home concentrate odors, his limitation would likely be 13-14 L. as his condition has stabilized, there are no further plans to transfer him to a tertiary care facility. Furosemide was decreased yesterday from twice daily to once daily due to increasing azotemia. His BUN is continuing to rise and is up to 41 today. Will plan to transition back to his usual oral Lasix tomorrow. Additionally, will decrease Solu-Medrol from 60 mg IV q.6 hours which she has been on for 4 days to 60 mg IV Q 8 hours. Today is day 8 of cefepime. Will discontinue that as well. Continue Bactrim for PJP prophylaxis. 2. UIP As above. Remains on Bactrim for PJP prophylaxis given high dose steroids. 3. Type 2 diabetes Continue sliding scale. 4. Hyponatremia Sodium remains 126 and BUN is increased from 24 on November 06 to 37 yesterday and now 41. As above, will discontinue IV Lasix and resume his usual oral Lasix. Will continue to monitor. 5. Hypertension Mildly hypertensive. Continue labetalol, terazosin, furosemide. Code status DNR DNI. As noted, he would pause his DNR for procedures or surgeries. Prophylaxis Continue Lovenox Disposition Continue heated high-flow oxygen. Continue intensive care unit Time-Based Coding :: [TOTAL MINUTES] spent with patient and on the chart (including review of chart, obtaining history, exam, reviewing outside data, placing orders, documenting exam and treatment plan, and counseling patient) on [DATE].
[2024-11-13] MEDS: INSULIN GLARGINE 100 UNIT/ML 3ML PEN 12 UNIT SUBCUT (21:47)
[2024-11-14] VITALS (29 sets, daily range): BP systolic 132–173; BP diastolic 65–83; PULSE 47–73; RESP 17–21; TEMP 36.1–36.6; O2SAT 85–97
[2024-11-14] MEDS: PANTOPRAZOLE DR 40 MG TABLET PO (06:21)
[2024-11-14] MEDS: LEVOTHYROXINE 50 MCG TABLET PO (06:21)
[2024-11-14] MEDS: methylPREDNISolone 125 MG/2 ML VIAL 60 MG IV ×3 (06:21→21:02)
[2024-11-14] MEDS: INSULIN LISPRO 100 UNIT/ML 3ML VIAL SUBCUT ×6 (08:53→17:02)
[2024-11-14] MEDS: ENOXAPARIN 40 MG/0.4 ML SYRINGE SUBCUT (08:56)
[2024-11-14] MEDS: MAGNESIUM OXIDE 400 MG TABLET PO ×2 (08:57→21:01)
[2024-11-14] MEDS: TRIMETH/SULFA 160/800 (DS) TABLET 2 TAB PO ×3 (08:57→21:01)
[2024-11-14] MEDS: ASPIRIN EC 81 MG TABLET PO (08:57)
[2024-11-14] MEDS: FUROSEMIDE 20 MG TABLET PO (08:57)
[2024-11-14] MEDS: TAMSULOSIN 0.4 MG CAPSULE 0.8 MG PO ×2 (08:58→21:01)
[2024-11-14] MEDS: polyethylene glycoL 3350 17 GM POWD.PACK PO (08:58)
[2024-11-14] MEDS: TERAZOSIN 1 MG CAPSULE 2 MG PO ×2 (08:58→21:01)
--- NOTE | 2024-11-14 11:52 | PC.NURSE ---
OT tried to initiate therapy, got patient to edge of the bed, is currently on 2L by NC and desaturated to 77%. Provider made aware.
--- NOTE | 2024-11-14 11:57 | DIET.CONS ---
Dietary Consultation Note Admission Date: 11/06/2024 05:07 Assessment: 74 y M admitted for resp. failure. Dietitian screened for LOS. PMH of DM2, well managed with A1c% <6 per pt. Met with pt at bedside who reports decreased appetite for 5 days while hospitalized, but then had a bowel movement and appetite has returned to normal. Outside of this hospitalization, reports normal appetite with 3 meals per day. Reports UBW of 145 lb in May and gradual decline in weight of 5-7 lb since. Recent average PO intakes 70%. 2 extra protein sources (string cheesex2 or extra egg x2 meals per day) Ht: 172.72 cm Wt: 56.3 kg BMI: 18.9 UBW: 66.33 kg on 05/03/24, 66.735 kg on 07/05/24 (-16% weight loss in 6 months), 64.4 kg on 08/11/24 (-12.5% weight loss in 3 months, severe). Noted lasix at home and during this admission diuretics on board. Weight at admission was 65.771 kg Last BM: 11/13/24 (11/13/24 09:00) MNA: Abel Score: 21 Diet: 11/06/24 Lunch Carbohydrate Consistent Diet Diet Modifications: Carbohydrate level: Medium (3 CHO) Reflex DM orders: No Food Texture: Level 7 - Regular Liquid Consistency: Level 0 - Thin Nutrition Percent Meal Consumed 100% 11/14/24 09:00 Percent Meal Consumed 25% 11/13/24 18:55 Percent Meal Consumed 75% 11/13/24 09:00 Percent Meal Consumed 75% 11/12/24 18:00 Percent Meal Consumed 75% 11/12/24 13:00 Labs: RBC 4.56 X10^6/uL (4.5-5.9) 11/13/24 04:20 Hgb 14.1 g/dL (13.5-17.5) 11/13/24 04:20 Hct 40.5 % (41-53) L 11/13/24 04:20 Creatinine 0.97 mg/dL (0.66-1.25) 11/13/24 04:20 Hemoglobin A1c 5.9 % (4.0-6.0) 11/06/24 08:23 Lactate 1.3 mmol/L (0.7-2.1) 11/06/24 08:23 NT-Pro-B Natriuret Pep 2120 pg/mL (<125) H 11/06/24 02:25 Nutrition Diagnosis: BMI underweight for age r/t increased energy needs aeb BMI 18.9 Interventions: Discussed energy dense snacks to add in 2x/d for weight gain to healthy BMI Reviewed fiber sources, adequate hydration for prevention of constipation EER: 8826-1630 kcals (30-35 kcals/kg per BMI) 60 g protein (1g/kg) Monitoring/Evaluations: PO intakes Electronically Signed by: Marcella Nichole 11/14/24 11:57 Clinical Dietitian [address] [address]
--- NOTE | 2024-11-14 12:37 | CM.DPNOTE ---
DCP note LOCOMOTIVE ENGINEER [employer]EL reviewed EMR LOCOMOTIVE ENGINEER DIESEL lvm with [facility] (fax [phone] / phone [phone]) to inquire about review. response pending. per provider in morning rounds, now at 2ltrs O2. new PT/OT orders placed. if stable with O2 with mobility may dc home? per OT, de stat when moved to edge of bed. likely good home with spouse/HH candidate. would need resumption for cardio pulmonary rehab in OP? PT pending. P: unlikely dc today. maybe tomorrow vs Wed pending oxygen needs? will continue to follow closely for DCP coordination, likely HH candidate referral needed. will cancel ref with LTAC if stable enough to dc home. MARIAMA Thao
--- NOTE | 2024-11-14 13:48 | OT.IP.EVAL ---
Current Diagnoses Hypo-osmolality and hyponatremia (11/06/24) Idiopathic pulmonary fibrosis (11/06/24) Acute respiratory failure with hypoxia (11/06/24) Other specified abnormal findings of blood chemistry (11/06/24) Past Medical History (Last Reviewed 11/11/24 @ 11:11 by Nikko Arrieta MD) Acute hypoxic respiratory failure BPH (benign prostatic hyperplasia) BPH w urinary obs/LUTS Bradycardia Breakdown (mechanical) of other cardiac and vascular devices and implants, initial encounter Cold feeling Cor pulmonale, acute Diabetes mellitus (~2016) Diabetic cataract of both eyes Eczema of right hand Elevated TSH Hemorrhoid History of tobacco use Hx of arterial ischemic stroke Hyperlipidemia Hypertension Hypothyroidism (acquired) Kidney disease Measles (~1956) Multiple actinic keratoses Nocturia more than twice per night Physician orders for life-sustaining treatment (POLST) form indicates patient wish for jd-aqm-[id number] status Pulmonary hypertension Secondhand smoke exposure Stroke (~2016) Substance abuse (~1967) UIP (usual interstitial pneumonitis) Vitamin D deficiency Surgical History (Last Reviewed 11/11/24 @ 11:11 by Nikko Arrieta MD) Anesthesia History of ankle surgery (~1993) History of hernia repair (~2005) S/P LASIK surgery (~1997) [place] teeth removed (10/06/97) Occupational Therapy Inpatient Evaluation/Re-Eval M1 PT/OT-IP Prior Functional Status Start: 11/14/24 13:24 Freq: NEEDED Status: Active Protocol: Document 11/14/24 13:24 VU (Rec: 11/14/24 13:48 VU Desktop) Medical Review Prior Functional Status Medical History Yes Reviewed Communication Pt is able to make his needs known and provided extended history information Mobility and Gait Prior to May, pt was amb up to 6 miles without AD. Since May, pt has been mostly limited to household distances without AD. Activities of Daily Pt is I with BADLs and cooking. Pt reports that his Living and IADL's oxygen has been dropping while performing LB dressing. Social History Household Members significant other Living Arrangements Apartment/Condo Number of Stairs To 0 steps to enter Enter/Railing? Home Environment Standard Height Toilet,Tub/Shower,Tub/Shower Doors Home Equipment Straight Cane Employment Status Retired Additional Social Pt sleeps in a regular bed and gets out on the R side. History Comment M2 OT-IP Current Condition Start: 11/14/24 13:24 Freq: Status: Active Protocol: Document 11/14/24 13:24 [email or web address] (Rec: 11/14/24 13:48 [facility] Desktop) Occupational Therapy Current Condition Current Condition Evaluation Date 11/14/24 Treatment Diagnosis acute on chronic hypoxic resp failure, decreased self care Diagnosis Onset Date 11/06/24 M3 OT- IP Subjective and Pain Start: 11/14/24 13:24 Freq: Status: Active Protocol: Document 11/14/24 13:24 JEFFMILLA (Rec: 11/14/24 13:48 [facility] Desktop) OT- Subjective Occupational Therapy Visit Type Type Initial Evaluation Visit Start Time 11:25 Visit Stop Time 11:57 Notes Pt is reclined in bed on entrance of OT. Pt has an INR of 4.7, MD Morris gave permission to begin therapy during rounds this morning. Occupational Therapy Visit Comments Patient Comments Pt reports that his oxygen drops when using the urinal and performing LB dressing. Pt is agreeable to participating in OT eval. Patient/Caregiver To go home and return to cardio pulmonary rehab. To Goals learn EC techniques and LB AE dressing. OT Pain Assessment Pain When Pain Assessed After Treatment Pain Present Pain Present Denied Pain M4 OT- IP ADL's Start: 11/14/24 13:24 Freq: Status: Active Protocol: Document 11/14/24 13:24 VU (Rec: 11/14/24 13:48 [email or web address] Desktop) OT DKN-[id number]-Hhdqunx Comments OT Self-Feeding not observed Comments OT ADL-Grooming Comments OT Grooming Comments pt declined performing at time of eval. OT ADL-Oral Care Comments Oral Care Comments pt declined performing at time of eval. OT ADL-Dressing General Eval Upper Body Dressing Minimal Assistance Ability Lower Body Dressing Moderate Assistance Ability Comments OT Dressing Comments In supine, pt is able to don and doff sock with no noticeable drop in oxygen and without assistance. While EOB, pt O2 (on 2L) dropped to 77 within about two minutes. Dressing was not attempted while EOB. Due to pt's oxygen desaturation, pt needs assistance with dressing and/or multiple and lengthy rbs to allow recovery of oxygen. Pt would benefit from LB AE education and possibly supine dressing techniques. OT ADL-Toileting General Evaluation Toileting Ability Independent Comments OT Toileting Pt is I with urinal, declined needing to use toilet Comments during eval. OT ADL-Bathing Comments OT Bathing Comments not observed. Pt would benefit from sponge bath at this time. M5 OT- IP IADL's Start: 11/14/24 13:24 Freq: Status: Active Protocol: Document 11/14/24 13:24 VU (Rec: 11/14/24 13:48 [facility] Desktop) OT-Instrumental Activities of Daily Living Deficits IADL Deficits Deficits Identified Home Safety Awareness Awareness of Need Good Awareness for Assistance at Home Ability to Problem Able to Problem Solve Solve Emergency Situations Medication Management Medication No Deficits Identified Management Money Management Money Management No Deficits Identified Meal Preparation Meal Preparation Caregiver Provides Assist Meal Preparation pt will need assist on d/c Comments Web Operations Administrator Web Operations Administrator Caregiver Provides Assist Web Operations Administrator pt will need assist on d/c Comments Driving Driving Caregiver Provides Assist Driving Comments pt will need assist on d/c M6 OT- IP Functional Cognition Start: 11/14/24 13:24 Freq: Status: Active Protocol: Document 11/14/24 13:24 VU [facility] Cognitive Factors Limiting Selfcare Function Cognitive Ability Level of Alertness Alert Patient Orientation Name,Age,Birthday,Month,Date,Year,Day of Week,Place, Situation Attention Span Capable of Focused Attention,Capable of Sustained Ability Attention Ability to Follow Able to Follow One Step Commands,Able to Follow Multi- Commands Step Commands Memory Description No Deficits Noted Safety Awareness No Deficits Noted Problem Solving No deficits Noted Ability Executive Function No Deficits Noted Ability Abstract Thinking No Deficits Noted Ability OT- Vision and Hearing OT- Hearing Assessment OT- Hearing WFL Assessment OT- Vision Assessment Visual Acuity WFL M7 OT- IP Mobility and Balance Start: 11/14/24 13:24 Freq: Status: Active Protocol: Document 11/14/24 13:24 VU (Rec: 11/14/24 13:48 [facility]- Bed Mobility Assessment Supine to Sit Supine to Sit Assist Standby Assistance,Head of Bed Elevated,Bedrails Sit to Supine Sit to Supine Assist Standby Assistance,Head of Bed Elevated,Bedrails Scooting Scooting to Edge of Standby Assistance,Head of Bed Elevated,Bedrails Bed OT-Transfer Assessment Comments Mobility Comments While supine, pts BP was 158/74 and his oxygen saturation on 2L was 93. Pts oxygen dropped to 88 during conversation. When performing sup>sit pts oxygen saturation dropped to 77 within about 2 minutes. For this reason, a functional t/f was not attempted, pt returned to supine and nsg arrived to increase his oxygen L stating that it would help with pts recovery. OT- Balance Assessment Sitting Balance and Reactions Static Sitting Good Balance Ability Dynamic Sitting Fair Balance Ability M8 OT- IP Objective Assessments Start: 11/14/24 13:24 Freq: Status: Active Protocol: Document 11/14/24 13:24 [facility] (Rec: 11/14/24 13:48 [facility] Gross Range of Motion Upper Extremity Range of Motion Assessment Within Functional Limits OT Strength Upper Extremity Strength Assessment Within Functional Limits Shoulder 4+ Elbow 5 Hand Marketing Team Lead Strength Hand Dominance Left OT-Muscle Tone Assessment Muscle Tone WNL Yes M9 OT- IP Assessment and Plan Start: 11/14/24 13:24 Freq: Status: Active Protocol: Document 11/14/24 13:24 [email or web address] (Rec: 11/14/24 13:48 [facility] Summary Assessment and Plan Potential Rehabilitation Good Potential Analytic Complexity Low at Evaluation Summary OT Impairments Strength,Balance,Functional Mobility,Grooming,Dressing, Toileting,Bathing,Toilet Transfers,Shower Transfers, Activity Tolerance Assessment Summary Pt is a 74 yo M who was diagnosed with pulmonary fibrosis 2 years ago. Pt reports that in May he had a flare up which has resulted in decreased lung function and decreased I with previous activity level. On 11/06 pt was admitted from ED with acute on chronic hypoxic respiratory failure. Pt was cleared to begin therapy today. Pt lives with his significant other and she will be able to assist with his needs on d/c. Pt was receiving cardiopulmonary therapy and he hopes to return to it when he is medically ready. Pt was on 2L oxygen during eval, at rest pts oxygen was 93%, this dropped to 88% with conversation, and 77% while sitting EOB for approximately 2 minutes. Pt presents with decrease from his baseline for BADLs, functional t/fs, functional mobility, and activity tolerance. Pt would benefit from education of energy conservation techniques and LB AE for LB dressing (due to loss of breath with these tasks). Skilled OT services are appropriate to address these deficits and promote return toward PLOF. Pt will need 24/7 care from his spouse on d/c and would benefit from HH vs Cardiopulmonary outpatient therapy. Pt left reclined in bed with all needs met and bed exit alarm set. Goals Grooming Goal Independent Dressing Goal Independent,Long Handled Shoe Horn,Thread Clipper,Sock Aid Toileting Goal Independent Bathing Goal Independent Toilet Transfer Goal Independent Shower Transfer Goal Independent,Walk-in Shower,Shower Chair,Grab Bars Days to Meet Goals 10 Frequency of Treatment Other frequency 5x/wk Treatment Plan OT Treatment Plan ADL Training,Functional Mobility,Therapeutic Exercises, Patient/Family Education,Discharge Planning Other Treatment energy conservation techniques, LB AE training Recommendations and Next Treatment Focus Discharge Recommendations OT Discharge Home with 24/7 Assist Available,Home Health Recommendations Other Discharge HH vs Cardiopulmonary Rehab Recommendations Home Equipment Needs shower chair/bench, LB AE (endoscopy nurse, shoe horn, sock aid ) Transportation Needs Private Vehicle at Discharge
--- NOTE | 2024-11-14 15:02 | PT.IIE ---
Current Diagnoses Hypo-osmolality and hyponatremia (11/06/24) Idiopathic pulmonary fibrosis (11/06/24) Acute respiratory failure with hypoxia (11/06/24) Other specified abnormal findings of blood chemistry (11/06/24) Surgical History (Last Reviewed 11/11/24 @ 11:11 by Nikko Arrieta MD) Anesthesia History of ankle surgery (~1993) History of hernia repair (~2005) S/P LASIK surgery (~1997) [employer] teeth removed (10/06/97) Medical History (Last Reviewed 11/11/24 @ 11:11 by Nikko Arrieta MD) Acute hypoxic respiratory failure BPH (benign prostatic hyperplasia) BPH w urinary obs/LUTS Bradycardia Breakdown (mechanical) of other cardiac and vascular devices and implants, initial encounter Cold feeling Cor pulmonale, acute Diabetes mellitus (~2016) Diabetic cataract of both eyes Eczema of right hand Elevated TSH Hemorrhoid History of tobacco use Hx of arterial ischemic stroke Hyperlipidemia Hypertension Hypothyroidism (acquired) Kidney disease Measles (~1956) Multiple actinic keratoses Nocturia more than twice per night Physician orders for life-sustaining treatment (POLST) form indicates patient wish for ia-crd-furwwfvryve status Pulmonary hypertension Secondhand smoke exposure Stroke (~2016) Substance abuse (~1967) UIP (usual interstitial pneumonitis) Vitamin D deficiency Physical Therapy Inpatient Evaluation/Re-Eval M1 PT/OT-IP Prior Functional Status Start: 11/14/24 13:24 Freq: NEEDED Status: Active Protocol: Document 11/14/24 14:49 KJ (Rec: 11/14/24 15:02 KJ Laptop) Medical Review Prior Functional Status Medical History Yes Reviewed Communication Pt is able to make his needs known and provided extended history information Mobility and Gait Prior to May, pt was amb up to 6 miles without AD. Since May, pt has been mostly limited to household distances without AD. Activities of Daily Pt is I with BADLs and cooking. Pt reports that his Living and IADL's oxygen has been dropping while performing LB dressing. Social History Household Members significant other Living Arrangements Apartment/Condo Number of Stairs To 0 steps to enter Enter/Railing? Home Environment Standard Height Toilet,Tub/Shower,Tub/Shower Doors Home Equipment Straight Cane Employment Status Retired Additional Social Pt sleeps in a regular bed and gets out on the R side. History Comment M2 PT-IP Current Condition Start: 11/14/24 14:48 Freq: NEEDED Status: Active Protocol: Document 11/14/24 14:49 KJ (Rec: 11/14/24 15:02 KJ Laptop) Physical Therapy Current Condition Current Condition Evaluation Date 11/14/24 Treatment Diagnosis poor activity tolerance M3 PT-IP Subjective Start: 11/14/24 14:48 Freq: NEEDED Status: Active Protocol: Document 11/14/24 14:49 KJ (Rec: 11/14/24 15:02 KJ Laptop) Subjective Physical Therapy Visit Type Type Initial Evaluation Visit Start Time 12:25 Visit Stop Time 13:04 Physical Therapy Visit Comments Patient Comments Pt reports trying to sit at eob with OT and tolerating it poorly due to drops in O2 sats. Patient Goals to return home M4 PT-IP Mobility and Gait Start: 11/14/24 14:48 Freq: NEEDED Status: Active Protocol: Document 11/14/24 14:49 KJ (Rec: 11/14/24 15:02 KJ Laptop) PT-Transfer Assessment Comments Mobility Comments Mobility was not assessed. Recommend using total lift to get patient out of bed to a chair daily. M5 PT-IP Objective Assessments Start: 11/14/24 14:48 Freq: NEEDED Status: Active Protocol: Document 11/14/24 14:49 KJ (Rec: 11/14/24 15:02 KJ Laptop) Orientation Orientation/Cognition Level of Alertness Alert Orientation Name,Age,Birthday Language Function No Deficits Noted Ability Memory Description No Deficits Noted Gross Range of Motion Upper Extremity ROM Assessment Within Functional Limits Lower Extremity ROM Assessment Within Functional Limits Strength Upper Extremity Strength Assessment Within Functional Limits Lower Extremity Strength Assessment Within Functional Limits Other Assessments Other Other Assessments monitored O2 sats throughout session. Initially, sats remained 91-95% during ROM and muscle testing, as well as during isometric exercises provided to patient. When UE exercises were started pt began to have M6 PT-IP Treatment Start: 11/14/24 14:48 Freq: NEEDED Status: Active Protocol: Document 11/14/24 14:49 KJ (Rec: 11/14/24 15:02 KJ Laptop) Physical Therapy Treatment Exercises Exercises Ankle Pumps,Gluteal Sets,Quad Sets,Shoulder Flexion Other Treatments Other Treatment PNF patterns for UEs coordinated with deep breathing. Performed Pursed lip breathing. Breathing through nose rather than mouth. M7 PT-IP Assessment and Plan Start: 11/14/24 14:48 Freq: NEEDED Status: Active Protocol: Document 11/14/24 14:49 KJ (Rec: 11/14/24 15:02 KJ Laptop) PT Summary Assessment and Plan Potential Rehabilitation Fair Potential Status of Condition Unstable at Evaluation Summary Impairments ROM,Bed Mobility,Transfers,Activity Tolerance Assessment Summary Pt with poor tolerance to activity, demonstrates drops in O2 sats even with minimal activity. Not appropriate for mobility oob yet. Goals Bed Mobility Goal Standby Assistance Transfer Goal Contact Guard Assistance Gait Distance 10 Days to Meet Goals 10 Frequency of Treatment Frequency Of Once a Day Treatment Treatment Plan Physical Therapy Bed Mobility Training,Transfer Training,Gait Training, Treatment Plan Therapeutic Exercise Other Progress to bed mobility and transfers Recommendations and Next Treatment Focus Recommendations To Nursing Amount of Assist 2 Person Assist Needed Discharge Recommendations Other Discharge DC recommendations cannot be made at this time due to Recommendations poor activity tolerance
--- NOTE | 2024-11-14 18:06 | P.PN_ITS ---
Subjective Subjective Interval history: 74-year-old male with acute on chronic hypoxic respiratory failure. He has known UIP on chronic mycophenolate, history of ischemic stroke, pulmonary hypertension, diabetes mellitus type 2, and hypertension. At baseline, he uses 1.5 L of oxygen at night. On the date of admission, he had 77% O2 sats on a non-rebreather and subsequently required BiPAP. He is currently requiring high dose Solu-Medrol, doxycycline, Bactrim, and imipenem to cover staph, atypical bacteria, Pneumocystis jiroveci pneumonia, Pseudomonas, and recommendations are to keep him ?dry?. With this treatment, he was noted to be slightly better on November 08. On November 09 he was on high-flow oxygen at 45 L. On November 10 he was on 40 L. on November 11, he remained at 40 L with sats of 90-94%. He continues to have dyspnea with minimal exertion. Today he is on 2L via NC at rest. He did try to work with PT but quickly desaturated on his 2L to 77% and was stopped fairly quickly. Exam Vital Signs (past 8 hours): - 11/14/24 12:00 11/14/24 16:00 Temperature 97.5 F L 97.9 F Pulse Rate 60 73 Respiratory Rate 17 21 Blood Pressure 132/73 154/77 H Pulse Oximetry 90 L 89 L Oxygen Flow Rate 2 2 Fraction of Inspired Oxygen 30 Oxygen Delivery Method Nasal Cannula Oxygen Flow Rate 2 Narrative Exam Narrative: GEN: Very pleasant middle-aged male, Alert and oriented x 3, NAD HEENT:NC, Face symmetric CHEST: Respiratory excursions symmetric, coarse bibasilar crackles, otherwise clear to auscultation bilaterally CV: RRR, no M/R/G ABD: Soft, NT/ND, BT present in all 4 quadrants, no organomegaly or masses EXTR: warm, well perfused, no C/C/E SKIN: warm and dry, no rash NEURO: Alert and oriented x 3, nonfocal Objective Labs 11/13/24 04:20 11/13/24 04:20 [facility] Medical History Acute hypoxic respiratory failure BPH (benign prostatic hyperplasia) BPH w urinary obs/LUTS Bradycardia Breakdown (mechanical) of other cardiac and vascular devices and implants, initial encounter Cold feeling Cor pulmonale, acute Diabetes mellitus (~2016) Diabetic cataract of both eyes Eczema of right hand Elevated TSH Hemorrhoid History of tobacco use Hx of arterial ischemic stroke Hyperlipidemia Hypertension Hypothyroidism (acquired) Kidney disease Measles (~1956) Multiple actinic keratoses Nocturia more than twice per night Physician orders for life-sustaining treatment (POLST) form indicates patient wish for tk-fzk-hvpvmorophr status Pulmonary hypertension Secondhand smoke exposure Stroke (~2016) Substance abuse (~1967) UIP (usual interstitial pneumonitis) Vitamin D deficiency Surgical History Anesthesia History of ankle surgery (~1993) History of hernia repair (~2005) S/P LASIK surgery (~1997) [place] teeth removed (10/06/97) Family History Father Hypertension Stroke Mother Kidney disease Brother Kidney disease Social History marital status: number of children: 0 household members: significant other occupational status: previously employed Smoking Status: Former smoker Tobacco: How many years used: 18 alcohol intake: former substance use type: does not use caffeine: Yes Type(s) of exercise: walking frequency: 5-6 times per week duration: 15-30 minutes/day Assessment & Plan Assessment & Plan narrative: Assessment and plan: 1. Acute on chronic hypoxic respiratory failure -Furosemide was decreased 2 days ago from twice daily to once daily due to increasing azotemia. Now back on PO furosemide will repeat labs tomorrow. -Solu-Medrol from 60 mg IV q.6 hours which she has been on for 4 days to 60 mg IV Q 8 hours. Will try to reduce to PO prednisone starting tomorrow at 40 mg BID for possible PCP PNA - continue DS bactrim TID for possible PCP, along with steroids - EF 65-70% on TTE here (not scanned into the computer), RVSP 71 with pulmonary HTN possible volume overload, now on PO furosemide as noted above. 2. UIP As above. Remains on Bactrim for PJP prophylaxis given high dose steroids. - if continued improvement needs outpatient follow up with his pulmonologists. 3. Type 2 diabetes Continue sliding scale. 4. Hyponatremia Sodium remains 126 and BUN is increased from 24 on November 06 to 37 yesterday and now 41. As above, will discontinue IV Lasix and resume his usual oral Lasix. Will continue to monitor. 5. Hypertension Mildly hypertensive. Continue labetalol, terazosin, furosemide. Code status DNR DNI. As noted, he would pause his DNR for procedures or surgeries. Prophylaxis Continue Lovenox Disposition Likely home when able to ambulate without signficant desaturations with supplemental oxygen. Ideally when able to ambulate with <6L O2. Unclear when this can be achieved. May need to consider options for higher flow rates at home but given continued improvement this may be a possibility. PRIOR HOSPITAL PROBLEMS: Possible sepsis secondary to bacterial PNA. Presumed resolved Time-Based Coding :: [TOTAL MINUTES] spent with patient and on the chart (including review of chart, obtaining history, exam, reviewing outside data, placing orders, documenting exam and treatment plan, and counseling patient) on [DATE].
[2024-11-14] MEDS: DOCUSATE 100 MG CAPSULE 500 MG PO (21:01)
[2024-11-14] MEDS: INSULIN GLARGINE 100 UNIT/ML 3ML PEN 12 UNIT SUBCUT (21:03)
[2024-11-15] VITALS (22 sets, daily range): BP systolic 136–171; BP diastolic 64–88; PULSE 48–96; RESP 16–20; TEMP 36.3–36.5; O2SAT 88–96
[2024-11-15 06:03] LABS: Add Manual Diff / Slide Review NO; Basophils Absolute Auto 0 /uL (0-100); Basophils Percent Auto 0.2 % (0-2); Eosinophils Absolute Auto 0 /uL (0-450); Eosinophils Percent Auto 0.1 % (2-4); Hematocrit 38.5 % (41-53); Hemoglobin 13.7 g/dL (13.5-17.5); Lymphocytes Absolute Auto 500 /uL (1100-4500); Mean Corpuscular HGB Conc 35.5 % (30-36); Mean Corpuscular Hemoglobin 31.5 PG (26-34); Mean Corpuscular Volume 88.7 fL (80-100); Monocytes Absolute Auto 400 /uL (0-900); Monocytes Percent Auto 3.7 % (3-14); Neutrophils Absolute Auto 10700 /uL (1500-7000); Platelet Count 123 X10^3/uL (150-400); Red Blood Cell Count 4.34 X10^6/uL (4.5-5.9); Red Cell Distribution Width 15.6 % (11.6-14.8); White Blood Cell Count 11.6 X10^3/uL (4.5-11.0)
[2024-11-15 06:17] LABS: BUN Creatinine Ratio 39.8 (6-22); Blood Urea Nitrogen 33 mg/dL (9-20); Calcium 8.4 mg/dL (8.4-10.2); Carbon Dioxide 25 mmol/L (22-32); Chloride 98 mmol/L (98-107); Estimated Glomerular Filt Rate > 60 mL/min (>60); Glucose 124 mg/dL (70-99); HEMOLYSIS < 15 (0-50); Potassium 4.8 mmol/L (3.4-5.1); Sodium 127 mmol/L (137-145)
[2024-11-15] MEDS: PANTOPRAZOLE DR 40 MG TABLET PO (06:30)
[2024-11-15] MEDS: methylPREDNISolone 125 MG/2 ML VIAL 60 MG IV (06:30)
[2024-11-15] MEDS: LEVOTHYROXINE 50 MCG TABLET PO (06:30)
[2024-11-15] MEDS: INSULIN LISPRO 100 UNIT/ML 3ML VIAL SUBCUT ×5 (08:17→16:57)
[2024-11-15] MEDS: ASPIRIN EC 81 MG TABLET PO (08:18)
[2024-11-15] MEDS: TAMSULOSIN 0.4 MG CAPSULE 0.8 MG PO ×2 (08:18→21:06)
[2024-11-15] MEDS: MAGNESIUM HYDROXIDE 30 ML UDC PO (08:18)
[2024-11-15] MEDS: FUROSEMIDE 20 MG TABLET PO (08:18)
[2024-11-15] MEDS: TRIMETH/SULFA 160/800 (DS) TABLET 2 TAB PO ×3 (08:18→21:05)
[2024-11-15] MEDS: ENOXAPARIN 40 MG/0.4 ML SYRINGE SUBCUT (08:18)
[2024-11-15] MEDS: MAGNESIUM OXIDE 400 MG TABLET PO ×2 (08:18→21:07)
[2024-11-15] MEDS: TERAZOSIN 1 MG CAPSULE 2 MG PO ×2 (08:18→21:06)
--- NOTE | 2024-11-15 10:07 | OT.IP.TRT ---
Current Diagnoses Hypo-osmolality and hyponatremia (11/06/24) Idiopathic pulmonary fibrosis (11/06/24) Acute respiratory failure with hypoxia (11/06/24) Other specified abnormal findings of blood chemistry (11/06/24) Occupational Therapy Treatment Note M2 OT-IP Current Condition Start: 11/14/24 13:24 Freq: Status: Active Protocol: Document 11/14/24 13:24 VU (Rec: 11/14/24 13:48 VU Desktop) Occupational Therapy Current Condition Current Condition Evaluation Date 11/14/24 Treatment Diagnosis acute on chronic hypoxic resp failure, decreased self care Diagnosis Onset Date 11/06/24 M3 OT- IP Subjective and Pain Start: 11/14/24 13:24 Freq: Status: Active Protocol: Document 11/15/24 09:37 [facility] (Rec: 11/15/24 09:44 [facility] Desktop) OT- Subjective Occupational Therapy Visit Type Type Treatment Note Visit Start Time 08:58 Visit Stop Time 09:37 Occupational Therapy Visit Comments Patient Comments Pt agreed to go over energy conservation and LB dressing needs. Patient/Caregiver To go home. Goals OT Pain Assessment Pain When Pain Assessed At Rest Pain Present Pain Present Denied Pain M4 OT- IP ADL's Start: 11/14/24 13:24 Freq: Status: Active Protocol: Document 11/15/24 09:37 [facility] (Rec: 11/15/24 09:44 [facility] Desktop) OT [id number]-Feyq-[id number] Comments OT Self-Feeding Not observed. Comments OT ADL-Grooming Comments OT Grooming Comments Pt states to do later. OT ADL-Oral Care Comments Oral Care Comments Pt states to do later. OT ADL-Dressing General Eval Lower Body Dressing Standby Assistance Ability Comments OT Dressing Comments Able to show pt LB dressing equipment while supine in bed as O2 drops on the EOB. Also educated pt able to do dressing while supine to conserve energy as needed. OT ADL-Toileting Comments OT Toileting Pt states wants to use the BSC but rather do it was Comments nursing later. OT ADL-Bathing Comments OT Bathing Comments Sponge bath more appropriate at this time. M5 OT- IP IADL's Start: 11/14/24 13:24 Freq: Status: Active Protocol: Document 11/14/24 13:24 VU (Rec: 11/14/24 13:48 [facility]-Instrumental Activities of Daily Living Deficits IADL Deficits Deficits Identified Home Safety Awareness Awareness of Need Good Awareness for Assistance at Home Ability to Problem Able to Problem Solve Solve Emergency Situations Medication Management Medication No Deficits Identified Management Money Management Money Management No Deficits Identified Meal Preparation Meal Preparation Caregiver Provides Assist Meal Preparation pt will need assist on d/c Comments Beamer Hand Beamer Hand Caregiver Provides Assist Beamer Hand pt will need assist on d/c Comments Driving Driving Caregiver Provides Assist Driving Comments pt will need assist on d/c M6 OT- IP Functional Cognition Start: 11/14/24 13:24 Freq: Status: Active Protocol: Document 11/15/24 09:37 [facility] (Rec: 11/15/24 09:44 [facility] Desktop) Cognitive Factors Limiting Selfcare Function Cognitive Comments Cognitive Assessment INtact Comments M7 OT- IP Mobility and Balance Start: 11/14/24 13:24 Freq: Status: Active Protocol: Document 11/15/24 09:37 [facility] (Rec: 11/15/24 09:44 [facility] Desktop) OT- Bed Mobility Assessment Supine to Sit Supine to Sit Assist Standby Assistance Sit to Supine Sit to Supine Assist Standby Assistance Scooting Scooting to Edge of Standby Assistance Bed OT-Transfer Assessment Comments Mobility Comments Arrived in room and pt on 2L and at 92% and got to the EOB and dropped to 72% and having to increase O2 to 6L and recovered after several minutes in bed with HOB up. OT- Balance Assessment Sitting Balance and Reactions Static Sitting Good Balance Ability M8 OT- IP Objective Assessments Start: 11/14/24 13:24 Freq: Status: Active Protocol: Document 11/14/24 13:24 VU (Rec: 11/14/24 13:48 [facility] Desktop) OT Gross Range of Motion Upper Extremity Range of Motion Assessment Within Functional Limits OT Strength Upper Extremity Strength Assessment Within Functional Limits Shoulder 4+ Elbow 5 Hand Nanny Babysitter Strength Hand Dominance Left OT-Muscle Tone Assessment Muscle Tone WNL Yes M9 OT- IP Assessment and Plan Start: 11/14/24 13:24 Freq: Status: Active Protocol: Document 11/15/24 09:37 [facility] (Rec: 11/15/24 09:44 [facility] Desktop) OT Summary Assessment and Plan Potential Rehabilitation Good Potential Analytic Complexity Low at Evaluation Summary OT Impairments Strength,Balance,Functional Mobility,Grooming,Dressing, Toileting,Bathing,Toilet Transfers,Shower Transfers, Activity Tolerance Progress Towards Slow Progress due to Activity Tolerance Goals Assessment Summary Pt main barriers are decreased activity tolerance due to decrease O2 sats. Pt drops to 72% while EOB at 2L nd having to increase to 6L to recover. Able to practice LB dressing needs while in supine and also suggested other equipment needs for home use. Pt would benefit from BSC over the toilet, FWW versus 4ww, and LB dressing equipment. Pt to go home with 24/7 assist when medically stable. Per hospitalist ok to turn up O2 to 6L when working with pt.
[2024-11-15 11:37] LABS: POC Glucose 193 mg/dL (70-99)
--- NOTE | 2024-11-15 11:45 | PT.IPTN ---
Current Diagnoses Hypo-osmolality and hyponatremia (11/06/24) Idiopathic pulmonary fibrosis (11/06/24) Acute respiratory failure with hypoxia (11/06/24) Other specified abnormal findings of blood chemistry (11/06/24) Physical Therapy Treatment Note M2 PT-IP Current Condition Start: 11/14/24 14:48 Freq: NEEDED Status: Active Protocol: Document 11/14/24 14:49 KJ (Rec: 11/14/24 15:02 KJ Laptop) Physical Therapy Current Condition Current Condition Evaluation Date 11/14/24 Treatment Diagnosis poor activity tolerance M3 PT-IP Subjective Start: 11/14/24 14:48 Freq: NEEDED Status: Active Protocol: Document 11/15/24 11:45 AB (Rec: 11/15/24 13:57 AB [id number]) Subjective Physical Therapy Visit Type Type Treatment Note Visit Start Time 11:45 Visit Stop Time 12:15 Number of [facility] ARCHITECT Visits 0 Physical Therapy Visit Comments Patient Comments agreeable to do PT M4 PT-IP Mobility and Gait Start: 11/14/24 14:48 Freq: NEEDED Status: Active Protocol: Document 11/15/24 11:45 AB (Rec: 11/15/24 13:57 AB [id number]) PT-Bed Mobility Assessment Supine to Sit Supine to Sit Standby Assistance Sit to Supine Sit to Supine Standby Assistance PT-Transfer Assessment Sit to and From Stand Sit to and from Standby Assistance,Contact Guard Assistance,1 Person Stand Assistance,Use of Upper Extremities Equipment Transfer Assistive Gait Belt,Front Wheeled Walker Device Orthotic/Prosthetic No Devices or Brace: Comments Mobility Comments pt in bed and agreed to do PT. O2 sat with 6L/min supplemental O2: 93%. completed supine to sit SBA. (+ ) SOB. O2 sat varies: 84-88%. pt needing increase rest breaks in between activities. sit to stand CGA and pt was able to stand ~ 10-15 sec. O2 sat decreased to 77% needing to sit down. cued for deep breathing. O2 sat needing >5 min to go back up. informed nurse but wants supplemental O2 to stay at 6L and stated that pt normally recover slow. pt needing > 5 min to get back up 87-88% O2 sat. pt stated that he has constant chest tightness and brain fogginess. pt rested. pt wanted to stand again and completed another standing CGA. O2 sat prior to standin-88%. attempted to take a step CGA using fWW and have to rest standing after 1 step. O2 sat: 85%. O2 sat decrease to ~ 82% after 1-2 minutes. instructed pt to back up and sit on EOB CGA. pt lay back in bed SBA. positioned pt in bed. call light and table placed within reach. O2 sat : 82%. Left pt with nurse. informed hospitalist of pt's O2 sat with 6L /min O2. M5 PT-IP Objective Assessments Start: 11/14/24 14:48 Freq: NEEDED Status: Active Protocol: Document 11/14/24 14:49 KJ (Rec: 11/14/24 15:02 KJ Laptop) Orientation Orientation/Cognition Level of Alertness Alert Orientation Name,Age,Birthday Language Function No Deficits Noted Ability Memory Description No Deficits Noted Gross Range of Motion Upper Extremity ROM Assessment Within Functional Limits Lower Extremity ROM Assessment Within Functional Limits Strength Upper Extremity Strength Assessment Within Functional Limits Lower Extremity Strength Assessment Within Functional Limits Other Assessments Other Other Assessments monitored O2 sats throughout session. Initially, sats remained 91-95% during ROM and muscle testing, as well as during isometric exercises provided to patient. When UE exercises were started pt began to have M6 PT-IP Treatment Start: 11/14/24 14:48 Freq: NEEDED Status: Active Protocol: Document 11/15/24 11:45 AB (Rec: 11/15/24 13:57 AB [id number]) Physical Therapy Treatment Education Education Provided Safety M7 PT-IP Assessment and Plan Start: 11/14/24 14:48 Freq: NEEDED Status: Active Protocol: Document 11/15/24 11:45 AB (Rec: 11/15/24 13:57 AB [id number]) PT Summary Assessment and Plan Potential Rehabilitation Fair Potential Summary Impairments Strength,Balance,Bed Mobility,Transfers,Gait,Activity Tolerance Progress Towards Slow Progress due to Medical Issues,Slow Progress due Goals to Activity Tolerance Assessment Summary pt requiring SBA for bed mobility, CGA for sit to stand and was only able to take one step using FWW CGA due to SOB and decrease O2 sat: 77-82% with 6L/min O2. pt' s mobility limitation due to his medical condition affecting activity tolerance. d/c plan depending on pt 's progress but will need a w/c for mobility if pt goes home. will continue to assess. Goals Bed Mobility Goal Standby Assistance Transfer Goal Contact Guard Assistance,Front Wheeled Walker Gait Goal Contact Guard Assistance,Front Wheel Walker Gait Distance 10 Days to Meet Goals 10 Frequency of Treatment Frequency Of Once a Day Treatment Treatment Plan Physical Therapy Bed Mobility Training,Transfer Training,Gait Training, Treatment Plan Therapeutic Exercise,Balance Retraining,Post Op Education Recommendations To Nursing Amount of Assist 1 Person Assist Needed - PT assist 1
--- NOTE | 2024-11-15 12:23 | P.PN_ITS ---
Subjective Subjective Interval history: 74-year-old male with acute on chronic hypoxic respiratory failure. He has known UIP on chronic mycophenolate, history of ischemic stroke, pulmonary hypertension, diabetes mellitus type 2, and hypertension. At baseline, he uses 1.5 L of oxygen at night. On the date of admission, he had 77% O2 sats on a non-rebreather and subsequently required BiPAP. He is currently requiring high dose Solu-Medrol, doxycycline, Bactrim, and imipenem to cover staph, atypical bacteria, Pneumocystis jiroveci pneumonia, Pseudomonas, and recommendations are to keep him ?dry?. With this treatment, he was noted to be slightly better on November 08. On November 09 he was on high-flow oxygen at 45 L. On November 10 he was on 40 L. on November 11, he remained at 40 L with sats of 90-94%. He continues to have dyspnea with minimal exertion. Today he is on 2L via NC at rest. He did try to work with PT but quickly desaturated on even 6L to 77% and was stopped fairly quickly. Exam Vital Signs (past 8 hours): - 11/15/24 08:00 11/15/24 08:00 11/15/24 08:10 Temperature 97.6 F Pulse Rate 55 L 58 L Respiratory Rate 16 Blood Pressure 163/76 H Pulse Oximetry 92 Oxygen Delivery Method Nasal Cannula Oxygen Flow Rate 2 Fraction of Inspired Oxygen 30 Oxygen Delivery Method Nasal Cannula Oxygen Flow Rate 2 Narrative Exam Narrative: GEN: Very pleasant middle-aged male, Alert and oriented x 3, NAD HEENT:NC, Face symmetric CHEST: Respiratory excursions symmetric, coarse bibasilar crackles, otherwise clear to auscultation bilaterally CV: RRR, no M/R/G ABD: Soft, NT/ND, BT present in all 4 quadrants, no organomegaly or masses EXTR: warm, well perfused, no C/C/E SKIN: warm and dry, no rash NEURO: Alert and oriented x 3, nonfocal Objective Labs 11/15/24 03:50 11/15/24 03:50 Labs: Laboratory Results - last 24 hr 11/15/24 11/15/24 03:50 11:31 WBC 11.6 H RBC 4.34 L Hgb 13.7 Hct 38.5 L MCV 88.7 MCH 31.5 MCHC 35.5 RDW 15.6 H Plt Count 123 L Neut % (Auto) 92.0 H Lymph % (Auto) 4.0 L [place] % (Auto) 3.7 Eos % (Auto) 0.1 L Baso % (Auto) 0.2 Neut # (Auto) 96852 H Lymph # (Auto) 500 L [place] # (Auto) 400 Eos # (Auto) 0 Baso # (Auto) 0 Sodium 127 L Potassium 4.8 Chloride 98 Carbon Dioxide 25 BUN 33 H Creatinine 0.83 Estimated GFR > 60 BUN/Creatinine Ratio 39.8 H Glucose 124 H POC Whole Bld Glucose 193 H Calcium 8.4 PFSH Medical History Acute hypoxic respiratory failure BPH (benign prostatic hyperplasia) BPH w urinary obs/LUTS Bradycardia Breakdown (mechanical) of other cardiac and vascular devices and implants, initial encounter Cold feeling Cor pulmonale, acute Diabetes mellitus (~2016) Diabetic cataract of both eyes Eczema of right hand Elevated TSH Hemorrhoid History of tobacco use Hx of arterial ischemic stroke Hyperlipidemia Hypertension Hypothyroidism (acquired) Kidney disease Measles (~1956) Multiple actinic keratoses Nocturia more than twice per night Physician orders for life-sustaining treatment (POLST) form indicates patient wish for [id number] status Pulmonary hypertension Secondhand smoke exposure Stroke (~2016) Substance abuse (~1967) UIP (usual interstitial pneumonitis) Vitamin D deficiency Surgical History Anesthesia History of ankle surgery (~1993) History of hernia repair (~2005) S/P LASIK surgery (~1997) [place] teeth removed (10/06/97) Family History Father Hypertension Stroke Mother Kidney disease Brother Kidney disease Social History marital status: number of children: 0 household members: significant other occupational status: previously employed Smoking Status: Former smoker Tobacco: How many years used: 18 alcohol intake: former substance use type: does not use caffeine: Yes Type(s) of exercise: walking frequency: 5-6 times per week duration: 15-30 minutes/day Assessment & Plan Assessment & Plan narrative: Assessment and plan: 1. Acute on chronic hypoxic respiratory failure -Furosemide was decreased 2 days ago from twice daily to once daily due to increasing azotemia. Now back on PO furosemide repeat labs improving. -Solu-Medrol from 60 mg IV q.6 hours which she has been on for 4 days to 60 mg IV Q 8 hours. Will reduce to PO prednisone at 40 mg BID for possible PCP PNA. Then start taper of BID for 5 days, 40 mg daily for 5 days, then 20 mg daily for 11 days. - continue DS bactrim TID for possible PCP, along with steroids. Treatment is 21 days. - EF 65-70% on TTE here (not scanned into the computer), RVSP 71 with pulmonary HTN possible volume overload, now on PO furosemide as noted above. 2. UIP As above. Remains on Bactrim for PJP prophylaxis given high dose steroids. - if continued improvement needs outpatient follow up with his pulmonologists. 3. Type 2 diabetes Continue sliding scale. 4. Hyponatremia Sodium remains 126 and BUN is increased from 24 on November 06 to 37 yesterday and now 41. As above, will discontinue IV Lasix and resume his usual oral Lasix. Will continue to monitor. 5. Hypertension Mildly hypertensive. Continue labetalol, terazosin, furosemide. Code status DNR DNI. As noted, he would pause his DNR for procedures or surgeries. Prophylaxis Continue Lovenox Disposition Likely home when able to ambulate without signficant desaturations with supplemental oxygen. Ideally when able to ambulate with <6L O2. Unclear when this can be achieved. May need to consider options for higher flow rates at home but given continued improvement unclear if this will be needed. PRIOR HOSPITAL PROBLEMS: Possible sepsis secondary to bacterial PNA. Presumed resolved Time-Based Coding :: [TOTAL MINUTES] spent with patient and on the chart (including review of chart, obtaining history, exam, reviewing outside data, placing orders, documenting exam and treatment plan, and counseling patient) on [DATE].
[2024-11-15 16:50] LABS: POC Glucose 145 mg/dL (70-99)
--- NOTE | 2024-11-15 17:59 | PC.NURSE ---
PT REMAINS A/OX4, ON 2L NC THROUGHOUT SHIFT. UP TO BEDSIDE COMMODE FOR BM. WORKED WITH PHY THERAPY AND OCCU THERAPY. BOOSTED TO 6L NC DURING ACTIVITY. HAS PERIODS OF DESATURATION (70S%-80S% SPO2) WITH EXERTION. PT RECOVERS SLOWLY WITH DEEP BREATHING AND REST. VISITING WITH PATIENT AT BEDSIDE. NO CONCERNS FROM PATIENT. CURRENTLY 94% ON 2L. PLAN TO CONTINUE TO WORK WITH PT/OT.
[2024-11-15 20:21] LABS: POC Glucose 104 mg/dL (70-99)
[2024-11-15] MEDS: LABETALOL 100 MG TABLET PO (21:06)
[2024-11-15] MEDS: predniSONE 20 MG TABLET 40 MG PO (21:07)
[2024-11-15] MEDS: DOCUSATE 100 MG CAPSULE 500 MG PO (21:07)
[2024-11-15] MEDS: INSULIN GLARGINE 100 UNIT/ML 3ML PEN 12 UNIT SUBCUT (21:09)
[2024-11-16] VITALS (7 sets, daily range): BP systolic 136–151; BP diastolic 64–84; PULSE 57–73; RESP 16–24; TEMP 36–36.5; O2SAT 86–98
[2024-11-16 06:24] LABS: BUN Creatinine Ratio 43.6 (6-22); Blood Urea Nitrogen 34 mg/dL (9-20); Carbon Dioxide 25 mmol/L (22-32); Chloride 97 mmol/L (98-107); Estimated Glomerular Filt Rate > 60 mL/min (>60); Glucose 155 mg/dL (70-99); HEMOLYSIS < 15 (0-50); Potassium 4.8 mmol/L (3.4-5.1); Sodium 125 mmol/L (137-145)
[2024-11-16 06:43] LABS: Add Manual Diff / Slide Review NO; Basophils Absolute Auto 0 /uL (0-100); Basophils Percent Auto 0.1 % (0-2); Eosinophils Absolute Auto 0 /uL (0-450); Eosinophils Percent Auto 0.4 % (2-4); Hematocrit 38.1 % (41-53); Hemoglobin 13.6 g/dL (13.5-17.5); Lymphocytes Absolute Auto 400 /uL (1100-4500); Lymphocytes Percent Auto 3.6 % (25-40); Mean Corpuscular HGB Conc 35.7 % (30-36); Mean Corpuscular Hemoglobin 31.8 PG (26-34); Monocytes Absolute Auto 300 /uL (0-900); Monocytes Percent Auto 2.8 % (3-14); Neutrophils Absolute Auto 9200 /uL (1500-7000); Neutrophils Percent Auto 93.1 % (50-75); Platelet Count 123 X10^3/uL (150-400); Red Blood Cell Count 4.28 X10^6/uL (4.5-5.9); Red Cell Distribution Width 16.5 % (11.6-14.8); White Blood Cell Count 9.9 X10^3/uL (4.5-11.0)
[2024-11-16] MEDS: PANTOPRAZOLE DR 40 MG TABLET PO (06:59)
[2024-11-16] MEDS: LEVOTHYROXINE 50 MCG TABLET PO (06:59)
[2024-11-16 08:07] LABS: POC Glucose 138 mg/dL (70-99)
[2024-11-16] MEDS: TRIMETH/SULFA 160/800 (DS) TABLET 2 TAB PO ×2 (08:21→15:02)
[2024-11-16] MEDS: MAGNESIUM OXIDE 400 MG TABLET PO (08:22)
[2024-11-16] MEDS: ASPIRIN EC 81 MG TABLET PO (08:22)
[2024-11-16] MEDS: polyethylene glycoL 3350 17 GM POWD.PACK PO (08:22)
[2024-11-16] MEDS: TAMSULOSIN 0.4 MG CAPSULE 0.8 MG PO (08:22)
[2024-11-16] MEDS: predniSONE 20 MG TABLET 40 MG PO (08:22)
[2024-11-16] MEDS: TERAZOSIN 1 MG CAPSULE 2 MG PO (08:22)
[2024-11-16] MEDS: ENOXAPARIN 40 MG/0.4 ML SYRINGE SUBCUT (08:22)
[2024-11-16] MEDS: INSULIN LISPRO 100 UNIT/ML 3ML VIAL SUBCUT ×5 (08:23→17:04)
[2024-11-16] MEDS: INSULIN LISPRO 100 UNIT/ML 3ML VIAL 8 UNIT SUBCUT (08:24)
--- NOTE | 2024-11-16 10:52 | PM.PN.1 ---
Subjective Subjective Interval history: 74-year-old male with acute on chronic hypoxic respiratory failure. He has known UIP on chronic mycophenolate, history of ischemic stroke, pulmonary hypertension, diabetes mellitus type 2, and hypertension. At baseline, he uses 1.5 L of oxygen at night. On the date of admission, he had 77% O2 sats on a non-rebreather and subsequently required BiPAP. He is now improving, no longer on heated high flow, but continues to desaturate with minimal activity. Today he is on 2L via NC at rest. Continues to desturate with minimal activity. Exam Vital Signs (past 8 hours): - 11/16/24 04:00 11/16/24 08:00 11/16/24 08:00 Temperature 96.8 F L 97.1 F L Pulse Rate 58 L 59 L Respiratory Rate 16 18 Blood Pressure 147/79 H 144/72 H Pulse Oximetry 98 92 Oxygen Delivery Method Nasal Cannula Oxygen Flow Rate 2 2 11/16/24 08:34 Temperature Pulse Rate 58 L Respiratory Rate Blood Pressure Pulse Oximetry Oxygen Delivery Method Oxygen Flow Rate Fraction of Inspired Oxygen 30 Oxygen Delivery Method Nasal Cannula Oxygen Flow Rate 2 Narrative Exam Narrative: GEN: Very pleasant middle-aged male, Alert and oriented x 3, NAD HEENT:NC, Face symmetric CHEST: Respiratory excursions symmetric, coarse bibasilar crackles, otherwise clear to auscultation bilaterally CV: RRR, no M/R/G ABD: Soft, NT/ND, BT present in all 4 quadrants, no organomegaly or masses EXTR: warm, well perfused, no C/C/E SKIN: warm and dry, no rash NEURO: Alert and oriented x 3, nonfocal Objective Labs 11/16/24 04:00 11/16/24 04:00 Labs: Laboratory Results - last 24 hr 11/15/24 11/15/24 11/15/24 11:31 16:40 20:18 WBC RBC Hgb Hct MCV MCH MCHC RDW Plt Count Neut % (Auto) Lymph % (Auto) [place] % (Auto) Eos % (Auto) Baso % (Auto) Neut # (Auto) Lymph # (Auto) [place] # (Auto) Eos # (Auto) Baso # (Auto) Sodium Potassium Chloride Carbon Dioxide BUN Creatinine Estimated GFR BUN/Creatinine Ratio Glucose POC Whole Bld Glucose 193 H 145 H 104 H Calcium 11/16/24 11/16/24 04:00 08:06 WBC 9.9 RBC 4.28 L Hgb 13.6 Hct 38.1 L MCV 89.0 MCH 31.8 MCHC 35.7 RDW 16.5 H Plt Count 123 L Neut % (Auto) 93.1 H Lymph % (Auto) 3.6 L [place] % (Auto) 2.8 L Eos % (Auto) 0.4 L Baso % (Auto) 0.1 Neut # (Auto) 9200 H Lymph # (Auto) 400 L [place] # (Auto) 300 Eos # (Auto) 0 Baso # (Auto) 0 Sodium 125 L Potassium 4.8 Chloride 97 L Carbon Dioxide 25 BUN 34 H Creatinine 0.78 Estimated GFR > 60 BUN/Creatinine Ratio 43.6 H Glucose 155 H POC Whole Bld Glucose 138 H Calcium 8.0 L PFSH Medical History Acute hypoxic respiratory failure BPH (benign prostatic hyperplasia) BPH w urinary obs/LUTS Bradycardia Breakdown (mechanical) of other cardiac and vascular devices and implants, initial encounter Cold feeling Cor pulmonale, acute Diabetes mellitus (~2016) Diabetic cataract of both eyes Eczema of right hand Elevated TSH Hemorrhoid History of tobacco use Hx of arterial ischemic stroke Hyperlipidemia Hypertension Hypothyroidism (acquired) Kidney disease Measles (~1956) Multiple actinic keratoses Nocturia more than twice per night Physician orders for life-sustaining treatment (POLST) form indicates patient wish for fv-csl-uexmuqsenrs status Pulmonary hypertension Secondhand smoke exposure Stroke (~2016) Substance abuse (~1967) UIP (usual interstitial pneumonitis) Vitamin D deficiency Surgical History Anesthesia History of ankle surgery (~1993) History of hernia repair (~2005) S/P LASIK surgery (~1997) [place] teeth removed (10/06/97) Family History Father Hypertension Stroke Mother Kidney disease Brother Kidney disease Social History marital status: number of children: 0 household members: significant other occupational status: previously employed Smoking Status: Former smoker Tobacco: How many years used: 18 alcohol intake: former substance use type: does not use caffeine: Yes Type(s) of exercise: walking frequency: 5-6 times per week duration: 15-30 minutes/day Assessment & Plan Assessment & Plan narrative: Assessment and plan: 1. Acute on chronic hypoxic respiratory failure -Furosemide was decreased 2 days ago from twice daily to once daily due to increasing azotemia. Now back on PO furosemide repeat labs improving but continued hyponatremia, will stop furosemide today to see if improvement. -Solu-Medrol from 60 mg IV q.6 hours which she has been on for 4 days to 60 mg IV Q 8 hours. Reduced to PO prednisone at 40 mg BID for possible PCP PNA. Then start taper of BID for 5 days, 40 mg daily for 5 days, then 20 mg daily for 11 days. - continue DS bactrim TID for possible PCP, along with steroids. Treatment is 21 days. - EF 65-70% on TTE here (not scanned into the computer), RVSP 71 with pulmonary HTN possible volume overload. Was diuresed but not overloaded on exam. Will stop furosemide today due to downtrending sodium levels. - given his persistent severe dyspnea on exertion, I discussed with pulmonology Dr. Garay today whom recommended further evaluation with bronchoscopy. 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 2. UIP As above. Remains on Bactrim for PJP prophylaxis given high dose steroids. - if continued improvement needs outpatient follow up with his pulmonologists. 3. Type 2 diabetes Continue sliding scale. 4. Hyponatremia Sodium remains 126 and BUN is increased from 24 on November 06 to normal but has been downtrending as above. concern for hypovolemia, will stop furosemide to see if improvement. Once off diuretics recommend further evaluation with urine sodium and osm for diagnostic evaluation. 5. Hypertension Mildly hypertensive. Continue labetalol, terazosin, furosemide. Code status DNR DNI. As noted, he would pause his DNR for procedures or surgeries. Prophylaxis Continue Lovenox Disposition Likely home when able to ambulate without signficant desaturations with supplemental oxygen. Pulmonology now recommending transfer for bronchoscopy and pulmonary consult for additional evaluation and treatment. PRIOR HOSPITAL PROBLEMS: Possible sepsis secondary to bacterial PNA. Presumed resolved Time-Based Coding :: [TOTAL MINUTES] spent with patient and on the chart (including review of chart, obtaining history, exam, reviewing outside data, placing orders, documenting exam and treatment plan, and counseling patient) on [DATE].
--- NOTE | 2024-11-16 11:52 | CM.DPNOTE ---
DCP note [facility] reviewed EMR per provider in morning rounds, continues to destat with minimal mobility. will reach out to pulmonology today inquire about any additional tx plan options. likely remains a good candidate for HH. f/u closer to dc. P: will continue to follow closely for DCP coordination, likely HH candidate referral needed. will cancel ref with [facility] if stable enough to dc home. Eri drew, MARIAMA
--- NOTE | 2024-11-16 11:54 | OT.IP.TRT ---
Current Diagnoses Hypo-osmolality and hyponatremia (11/06/24) Idiopathic pulmonary fibrosis (11/06/24) Acute respiratory failure with hypoxia (11/06/24) Other specified abnormal findings of blood chemistry (11/06/24) Occupational Therapy Treatment Note M2 OT-IP Current Condition Start: 11/14/24 13:24 Freq: Status: Active Protocol: Document 11/14/24 13:24 VU (Rec: 11/14/24 13:48 [email or web address] Desktop) Occupational Therapy Current Condition Current Condition Evaluation Date 11/14/24 Treatment Diagnosis acute on chronic hypoxic resp failure, decreased self care Diagnosis Onset Date 11/06/24 M3 OT- IP Subjective and Pain Start: 11/14/24 13:24 Freq: Status: Active Protocol: Document 11/16/24 12:13 CCC (Rec: 11/16/24 12:21 [facility] Desktop) OT- Subjective Occupational Therapy Visit Type Type Treatment Note Visit Start Time 11:57 Visit Stop Time 12:10 Occupational Therapy Visit Comments Patient Comments Pt agreed to go over theraputty and theraband exercises . Patient/Caregiver TO g o home. Goals OT Pain Assessment Pain When Pain Assessed At Rest Pain Present Pain Present Denied Pain M5 OT- IP IADL's Start: 11/14/24 13:24 Freq: Status: Active Protocol: Document 11/14/24 13:24 VU (Rec: 11/14/24 13:48 JEFFMIJOE Nicholasop) OT-Instrumental Activities of Daily Living Deficits IADL Deficits Deficits Identified Home Safety Awareness Awareness of Need Good Awareness for Assistance at Home Ability to Problem Able to Problem Solve Solve Emergency Situations Medication Management Medication No Deficits Identified Management Money Management Money Management No Deficits Identified Meal Preparation Meal Preparation Caregiver Provides Assist Meal Preparation pt will need assist on d/c Comments Proposal Lead Writer Proposal Lead Writer Caregiver Provides Assist Proposal Lead Writer pt will need assist on d/c Comments Driving Driving Caregiver Provides Assist Driving Comments pt will need assist on d/c M6 OT- IP Functional Cognition Start: 11/14/24 13:24 Freq: Status: Active Protocol: Document 11/15/24 09:37 CCC (Rec: 11/15/24 09:44 CCC Desktop) Cognitive Factors Limiting Selfcare Function Cognitive Comments Cognitive Assessment INtact Comments M8 OT- IP Objective Assessments Start: 11/14/24 13:24 Freq: Status: Active Protocol: Document 11/14/24 13:24 VU (Rec: 11/14/24 13:48 VU Desktop) OT Gross Range of Motion Upper Extremity Range of Motion Assessment Within Functional Limits OT Strength Upper Extremity Strength Assessment Within Functional Limits Shoulder 4+ Elbow 5 Hand 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 Operator Strength Hand Dominance Left OT-Muscle Tone Assessment Muscle Tone WNL Yes M9 OT- IP Assessment and Plan Start: 11/14/24 13:24 Freq: Status: Active Protocol: Document 11/16/24 12:13 [facility] (Rec: 11/16/24 12:21 [facility] Desktop) OT Summary Assessment and Plan Potential Rehabilitation Good Potential Analytic Complexity Low at Evaluation Summary Progress Towards Slow Progress due to Medical Issues,Slow Progress due Goals to Activity Tolerance Assessment Summary Pt still decrease in O2 after exertion and at this time able to do ADL needs however mainly limited due to dyspnea. Pt able to get all OT equipment for home and agreed best to discharge from OT services and pt to continue to work with PT and nursing. Able to give pt theraputty and theraband to help maintain his BUE strength. Pt requesting to have disposable gloves as pt is sensitive to the smell on the theraputty. Treatment Plan OT Treatment Plan ADL Training,Functional Mobility,Therapeutic Exercises Discharge Recommendations OT Discharge Home with 15/12 Assist Available,Home Health Recommendations Other Discharge HH Recommendations Transportation Needs Private Vehicle at Discharge
[2024-11-16 13:45] LABS: POC Glucose 158 mg/dL (70-99)
--- NOTE | 2024-11-16 14:23 | PT.IPTN ---
Current Diagnoses Hypo-osmolality and hyponatremia (11/06/24) Idiopathic pulmonary fibrosis (11/06/24) Acute respiratory failure with hypoxia (11/06/24) Other specified abnormal findings of blood chemistry (11/06/24) Physical Therapy Treatment Note M2 PT-IP Current Condition Start: 11/14/24 14:48 Freq: NEEDED Status: Active Protocol: Document 11/16/24 14:00 SP (Rec: 11/16/24 15:59 SP [id number]) Physical Therapy Current Condition Current Condition Evaluation Date 11/14/24 Treatment Diagnosis poor activity tolerance M3 PT-IP Subjective Start: 11/14/24 14:48 Freq: NEEDED Status: Active Protocol: Document 11/16/24 14:00 SP (Rec: 11/16/24 15:59 SP [id number]) Subjective Physical Therapy Visit Type Type Treatment Note Visit Start Time 14:00 Visit Stop Time 14:23 Number of PRODUCT FINISHER Visits 1 Physical Therapy Visit Comments Patient Comments agreeable to do PT M4 PT-IP Mobility and Gait Start: 11/14/24 14:48 Freq: NEEDED Status: Active Protocol: Document 11/16/24 14:00 SP (Rec: 11/16/24 15:59 SP [id number]) PT-Bed Mobility Assessment Supine to Sit Supine to Sit Standby Assistance Sit to Supine Sit to Supine Standby Assistance Scooting Scooting to Edge of Standby Assistance Bed PT-Transfer Assessment Sit to and From Stand Sit to and from Standby Assistance,1 Person Assistance,Use of Upper Stand Extremities Equipment Transfer Assistive Gait Belt,Front Wheeled Walker Device Orthotic/Prosthetic No Devices or Brace: Transfers Transfer Destination Bed Transfer Technique stand step pivot to front chair then back, didn't sit down on chair Transfer Ability Level of Assist Contact Guard Assistance,1 Person Assistance,Use of Upper Extremities Comments Mobility Comments Pt in bed Vitals: BP 169/77 HR 75 SaO2 92% on 3L, seated EOB decreased to 86-88% on O2 NC 3L>6 L. Cues and pt good demonstration of slow pursed lip breath exhale, inhale through NC, takes extra time for recover breath control. I get anxious when move due to sitting pressure into diaphragm up into ribcage, feel like am drowning. Stand step pivot with FWW bed<>chair , stood for about 2 min before needed to return to bed, SaO2 dec to 83% on 6L> increased to 6.5>7 L. Pt returned to supine in bed SBA bed mobility, SaO2 dropped to 73% took almost 2 min for full recovery to 91% on 7L> reduced back to 3L (initial Liter at arrival ), SaO2 maintained 92-93% on 3L before left. He had call light and all needs in reach. Pt continues demonstrate decreased activity tolerance with breath. He would benefit from continued skilled PT. Gait Assessment Gait Gait Assistance Standby Assistance,Contact Guard Assist,1 Person Assist Required: Distance (Feet) 3 Able to Maintain Yes Weight Bearing Status During Gait Assistive Devices Assistive Device Gait Belt,Front Wheeled Walker Orthotic/Prosthetic No Devices or Brace: Gait Deviations General Gait Pattern Antalgic,Decreased Stride Length,Decreased Feet Clearance,Narrow Based Gait,Step-to Gait Factors Limiting Gait Function Factors Limiting Decreased Activity Tolerance,Decreased Strength,Poor Gait Function Balance,Poor Safety Awareness,Respiratory Distress Comments Gait Comments stand step pivot to chair and back without sitting. See O2 values. Stair Climbing Assessment Comments Stair Climbing no stairs need to assess. Comments PT-Balance Assessment Sitting Balance and Reactions Static Sitting Good Balance Ability Dynamic Sitting Fair Balance Ability Standing Balance and Reactions Static Standing Good Balance Ability Dynamic Standing Fair Balance Ability Device Used FWW M5 PT-IP Objective Assessments Start: 11/14/24 14:48 Freq: NEEDED Status: Active Protocol: Document 11/14/24 14:49 KJ (Rec: 11/14/24 15:02 KJ Laptop) Orientation Orientation/Cognition Level of Alertness Alert Orientation Name,Age,Birthday Language Function No Deficits Noted Ability Memory Description No Deficits Noted Gross Range of Motion Upper Extremity ROM Assessment Within Functional Limits Lower Extremity ROM Assessment Within Functional Limits Strength Upper Extremity Strength Assessment Within Functional Limits Lower Extremity Strength Assessment Within Functional Limits Other Assessments Other Other Assessments monitored O2 sats throughout session. Initially, sats remained 91-95% during ROM and muscle testing, as well as during isometric exercises provided to patient. When UE exercises were started pt began to have M6 PT-IP Treatment Start: 11/14/24 14:48 Freq: NEEDED Status: Active Protocol: Document 11/16/24 14:00 SP (Rec: 11/16/24 15:59 SP [id number]) Physical Therapy Treatment Education Education Provided Safety Other Treatments Other Treatment Pursed lip breathing, diaphramatic breath- good form Performed M7 PT-IP Assessment and Plan Start: 11/14/24 14:48 Freq: NEEDED Status: Active Protocol: Document 11/16/24 14:00 SP (Rec: 11/16/24 15:59 SP [id number]) PT Summary Assessment and Plan Potential Rehabilitation Fair Potential Summary Impairments Strength,Balance,Bed Mobility,Transfers,Gait,Activity Tolerance Progress Towards Slow Progress due to Medical Issues,Slow Progress due Goals to Activity Tolerance Assessment Summary pt requiring SBA for bed mobility, CGA/close SBA for sit to stand, stand step pivot to front chair, static stance then return to bed using FWW CGA due to SOB and decrease O2 sat: 83-88% with 6L/min O2, increased to 7L , when returned to bed destate to 73% on 7L, 2min diaphramatic breath improved to 91% on 7L then reduced back to 3L elevated in bed, maintained low 90%, BP 167/84 Hr 81. Pt's mobility limitation due to his medical condition affecting activity tolerance, d/c plan depending on pt 's progress but will need a w/c for mobility if pt goes home. will continue to assess. Goals Bed Mobility Goal Standby Assistance Transfer Goal Contact Guard Assistance,Front Wheeled Walker Gait Goal Contact Guard Assistance,Front Wheel Walker Gait Distance 10 Days to Meet Goals 10 Frequency of Treatment Frequency Of Once a Day Treatment Treatment Plan Physical Therapy Bed Mobility Training,Transfer Training,Gait Training, Treatment Plan Therapeutic Exercise,Balance Retraining,Post Op Education Other Progress to bed mobility and transfers and gait when Recommendations and able, tolerance SaO2 Next Treatment Focus Recommendations To Nursing Amount of Assist Standby Assistance Needed Discharge Recommendations Other Discharge DC recommendations cannot be made at this time due to Recommendations poor activity tolerance - PT assist 1
[2024-11-16] MEDS: LACTOBACILLUS ACIDOPHILUS TABLET 1 EACH PO (15:02)
--- NOTE | 2024-11-16 16:05 | PM.DS.1 ---
History of Present Illness History of Present Illness Date Patient Seen: 11/16/24 Time Patient Seen: 16:06 Chief complaint: Respiratory Distress Narrative: Per H&P from admitting provider: Chief complaint: Acute dyspnea with acute on chronic hypoxic respiratory failure 3 weeks after starting mycophenolate for worsening interstitial pulmonary fibrosis Dr. Geoffrey Munguia History of present illness: 11/06/2024: 74M with PMH of UIP with chronic hypoxic respiratory failure, ischemic CVA, pulmonary HTN, past TUD, BPH with LUTS, DM2, HTN, hyperlipidemia, hypothyroidism presents from home for acute respiratory distress according to medics patient was allegedly 15% on room air when they arrived, he normally uses oxygen as needed, states he was on 2 L when they initially presented, at time of evaluation patient tachypneic, was 77% on non-rebreather placed immediately on BiPAP. Patient states that he has been feeling kind of short of breath over the past few days. He had no other prodromal or associated symptoms. Flu/COVID/RSV negative. BNP was mildly elevated at 2120 and troponin minimally elevated at 0.05. In ED, he was given IV steroids, nebulizer therapy, Lasix. CTA chest showed no PE but showed bilateral ground-glass opacities parenchymal infiltrates and honeycomb emphysema changes superimposed on chronic fibrosis. Per ED attending, additional information was obtained by at bedside, she states that her broom maker at [facility] (Dr. Hale) was starting patient on mycophenolate and prednisone over the past several months, paste that his symptoms have been getting worse for the past 2 weeks. Therefore 4 days ago it was decided that the patient would stop mycophenolate states he was at 1500 mg at that time states, states he is still currently on prednisone, 30 mg daily. Initial ABG: pH 7.38, pCO2 36.3, PO2 63. Patient was placed on BiPAP at 100% /5. Repeat ABG 1 hour later: pH 7.42, CO2 36, O2 109. Patient is DNR/DNI but ok for bipap. Past medical history, past surgical history, social history, family history, see bottom of the note Hospital course: 11/06: Was able to weaned off of BiPAP overnight and is now on high-flow nasal cannula oxygen discussed with patient and concerns for number of etiologies for the clinical and radiographic worsening of his pulmonary function and anatomy including potential for opportunistic infections such as Pneumocystis, CMV, Aspergillus. Given the severe hypoxia and the timeline for PCP empiric Bactrim and steroids were added today, however our capacity at this facility to diagnose and treat opportunistic infections is limited. Transfer request for were put out to [facility] where his broom maker Dr. Rowley has privileges to consult and [facility] for escalation of care to include pulmonology and Infectious Disease Discharge Providers Provider Date of admission: 11/06/24 05:07 Discharge Date: 11/16/24 Primary care physician: Peña Brito DO Consults: 11/11/24 11:45 Consult to Physical Therapy Evaluate & Treat Comment: Physician Instructions: Evaluate and Treat 11/11/24 11:46 Consult to Occupational Therapy Evaluate & Treat Comment: Physician Instructions: Evaluate and treat 11/14/24 10:08 Consult to Occupational Therapy Evaluate & Treat Comment: Physician Instructions: Evaluate and treat Consult to Physical Therapy Evaluate & Treat Comment: Physician Instructions: Evaluate and Treat Discharge provider: Hernán Morris DO Summary Hospital Course Discharge Diagnosis: See recent progress note below for hospital diasnoses: 1. Acute on chronic hypoxic respiratory failure with possible PJP PNA vs Acute exacerbation of ILD. -See diuresis course noted below. TTE noted below with elevated RVSP, but was kept dry per initial recommendations. Have been reducing furosemide due to azotemia on labs, which is improving. -Solu-Medrol from 60 mg IV q.6 hours which she has been on for 4 days to 60 mg IV Q 8 hours. Reduced to PO prednisone at 40 mg BID for possible PCP PNA. Then start taper of BID for 5 days, 40 mg daily for 5 days, then 20 mg daily for 11 days. - continue DS bactrim TID for possible PCP, along with steroids. Treatment is 21 days. - EF 65-70% on TTE here (not scanned into the computer), RVSP 71 with pulmonary HTN possible volume overload. Was diuresed but not overloaded on exam. Will stop furosemide today due to downtrending sodium levels. - given his persistent severe dyspnea on exertion, I discussed with pulmonology Dr. Garay today whom recommended further evaluation with bronchoscopy. [facility] is full, where patient's normal broom maker is, will attempt transfer to [facility] for more urgeny bronch. 2. UIP As above. Remains on Bactrim for PJP prophylaxis given high dose steroids. - if continued improvement needs outpatient follow up with his pulmonologists. 3. Type 2 diabetes Started on lantus due to steroids, also on sliding scale. At home takes metformin only. 4. Hyponatremia Sodium consistently around 125-127 since admission. See if improvement with cessation of furosemide. If not possible SIADH need to check urine studies ideally once of diuretics. He is asypmtomatic with regards to hyponatremia. 5. Hypertension Mildly hypertensive. Continue labetalol, terazosin. Furosemide (home dose 20 mg) now on hold as noted above. Code status DNR DNI. As noted, he would pause his DNR for procedures or surgeries. Prophylaxis Continue Lovenox Disposition Transfer for pulmonology consultation, bronchoscopy. Hospital Course: This is a 74 year old male admitted with acute on chronic hypoxemic and acute hypercapnic respiratory failure initially requiring BiPAP in the ICU. He was admitted for possible infection vs progression of his underlying pulmonary disease. He follows with pulmonology in [facility] primarily at baseline and was previously on 1.5 L of O2 normally, he had been on mycophenylate and prednisone for the past few months on presentation. He is DNR DNI but open to procedures. He was initially recommended for transfer, however no beds were available and he was admitted to the ICU for further managment. He was recommended to start broad spectrum antibiotics along with PCP treatment per discussions with pulmonology at the time. No sputum culture was able to be obtained since admission. He improved to heated high flow initially, and after about a week was improved enough to wean to nasal cannula at rest. He was initially on transfer lists for further evaluation at both [facility] and for multiple days while until he was weaned off heated high flow and there was a possibility he could discharge home. He continued on high dose steroids, cefepime, and bactrim with slow steady improvement. He was also on steady diuresis, which was stopped due to azotemia. He is now down to 2L at rest, but continues to have severe exertional dyspnea and hypoxia, not allowing the patient to work with physical therapy much. On 11/16 re-discussed with pulmonary team which provides consultation for [facility]. Garay. Recommended bronchoscopy for further diagnosis, ideally at [facility] with his broom maker but if unable to transfer there Prov. Encarnacion where his group could see the patient. Patient was accepted for transfer for further pulmonary consultation and probable bronchoscopy on 11/16 to Prov. Encarnacion as Tessa Huff reported no available beds for several days. Please see additional antibiotic, diuretic, and steroid courses noted below. Antibiotic course: Cefepime 11/06 - 11/13 (END 7 days of therapy). Bactrim IV (11/06-11/09), once improved changed to Bactrim 160/800 2 tabs TID for PJP treatment from 11/09 - now. Steroid course: Solumedrol 125 mg q6 11/06-11/09. Solumedrol 60 mg q6 11/09-, 60 mg q8h IV 11/13 - 11/15, then changed to prednisone 40 mg BID (for PJP Tx) starting 11/15 - . Furosemide: 20 mg IV BID 11/07 - 11/13. 11/13-11/15 20 mg PO daily. Stopped 11/16 due to hyponatremia. TTE as noted above in progress note. Time Spent with Patient Time spent: Greater than 30 minutes Exam Vital Signs (past 8 hours): - 11/16/24 08:34 11/16/24 12:00 Temperature 97.7 F Pulse Rate 58 L 68 Respiratory Rate 18 Blood Pressure 151/78 H Pulse Oximetry 92 Oxygen Flow Rate 3 Fraction of Inspired Oxygen 30 Oxygen Delivery Method Nasal Cannula Oxygen Flow Rate 3 Narrative Exam Narrative: GEN: Very pleasant middle-aged male, Alert and oriented x 3, NAD HEENT:NC, Face symmetric CHEST: Respiratory excursions symmetric, coarse bibasilar crackles, otherwise clear to auscultation bilaterally CV: RRR, no M/R/G ABD: Soft, NT/ND, BT present in all 4 quadrants, no organomegaly or masses EXTR: warm, well perfused, no C/C/E SKIN: warm and dry, no rash NEURO: Alert and oriented x 3, nonfocal Objective Labs 11/16/24 04:00 11/16/24 04:00 Labs: Laboratory Results - last 24 hr 11/15/24 11/15/24 11/16/24 16:40 20:18 04:00 WBC 9.9 RBC 4.28 L Hgb 13.6 Hct 38.1 L MCV 89.0 MCH 31.8 MCHC 35.7 RDW 16.5 H Plt Count 123 L Neut % (Auto) 93.1 H Lymph % (Auto) 3.6 L [place] % (Auto) 2.8 L Eos % (Auto) 0.4 L Baso % (Auto) 0.1 Neut # (Auto) 9200 H Lymph # (Auto) 400 L [place] # (Auto) 300 Eos # (Auto) 0 Baso # (Auto) 0 Sodium 125 L Potassium 4.8 Chloride 97 L Carbon Dioxide 25 BUN 34 H Creatinine 0.78 Estimated GFR > 60 BUN/Creatinine Ratio 43.6 H Glucose 155 H POC Whole Bld Glucose 145 H 104 H Calcium 8.0 L 11/16/24 11/16/24 08:06 11:53 WBC RBC Hgb Hct MCV MCH MCHC RDW Plt Count Neut % (Auto) Lymph % (Auto) [place] % (Auto) Eos % (Auto) Baso % (Auto) Neut # (Auto) Lymph # (Auto) [place] # (Auto) Eos # (Auto) Baso # (Auto) Sodium Potassium Chloride Carbon Dioxide BUN Creatinine Estimated GFR BUN/Creatinine Ratio Glucose POC Whole Bld Glucose 138 H 158 H Calcium PFSH Medical History Acute hypoxic respiratory failure BPH (benign prostatic hyperplasia) BPH w urinary obs/LUTS Bradycardia Breakdown (mechanical) of other cardiac and vascular devices and implants, initial encounter Cold feeling Cor pulmonale, acute Diabetes mellitus (~2016) Diabetic cataract of both eyes Eczema of right hand Elevated TSH Hemorrhoid History of tobacco use Hx of arterial ischemic stroke Hyperlipidemia Hypertension Hypothyroidism (acquired) Kidney disease Measles (~1956) Multiple actinic keratoses Nocturia more than twice per night Physician orders for life-sustaining treatment (POLST) form indicates patient wish for ok-[id number] status Pulmonary hypertension Secondhand smoke exposure Stroke (~2016) Substance abuse (~1967) UIP (usual interstitial pneumonitis) Vitamin D deficiency Surgical History Anesthesia History of ankle surgery (~1993) History of hernia repair (~2005) S/P LASIK surgery (~1997) [place] teeth removed (10/06/97) Family History Father Hypertension Stroke Mother Kidney disease Brother Kidney disease Social History marital status: number of children: 0 household members: significant other occupational status: previously employed Smoking Status: Former smoker Tobacco: How many years used: 18 alcohol intake: former substance use type: does not use caffeine: Yes Type(s) of exercise: walking frequency: 5-6 times per week duration: 15-30 minutes/day Discharge Plan Discharge Plan Patient Disposition: [facility] Under care of provider: Dr. Powers Provider Discharge Comment: See discharge summary Discharge Health Status Multidrug resistant organism: No MDRO Precautions: [place] Diet/Activity/Treatments Diet: Diet as Tolerated and Regular Liquid consistency: Normal/Thin Food texture: Regular Activity: No restrictions, limited due to hypoxia. Discharge Data Primary Care Provider: Peña Brito
[2024-11-16 16:51] LABS: POC Glucose 210 mg/dL (70-99)
--- NOTE | 2024-11-16 18:06 | PC.NURSE ---
PATIENT REMAINED ON 2L NC THROUGHOUT DAY. WORKED WITH RESP THERAPY, PHY THERAPY, AND OCCU THERAPY. PATIENT CONTINUES TO DESATURATE WITH MINIMAL ACTIVITY (70%-80%). WAGONER IN TO DISCUSS POC WITH PATIENT. PATIENT IS TO BE TRANSFERRED TO [facility]. REPORT GIVEN TO MIAH LOZADA AT 1800. UPDATED ON PLAN.
== END 2024-11-16 19:50 | disposition short-term general hospital (02) | DRG 871 ==
LOC: ED 04:47 → AC 05:09 → ICU 05:23 → AC 11-16 14:16
PROVIDERS: Family Medicine; Internal Medicine; Admitting Provider Internal Medicine; Emergency Provider Student in an Organized Health Care Education/Training Program; PCP Family Medicine; Referring Provider Student in an Organized Health Care Education/Training Program; Visit Provider Internal Medicine
DX: A41.9 Sepsis, unspecified organism (principal); B59 Pneumocystosis; I50.31 Acute diastolic (congestive) heart failure; J96.21 Acute and chronic respiratory failure with hypoxia; J15.9 Unspecified bacterial pneumonia; J96.02 Acute respiratory failure with hypercapnia; E87.1 Hypo-osmolality and hyponatremia; R65.20 Severe sepsis without septic shock; J84.112 Idiopathic pulmonary fibrosis; E11.9 Type 2 diabetes mellitus without complications; N40.1 Benign prostatic hyperplasia with lower urinary tract symptoms; I11.0 Hypertensive heart disease with heart failure; E78.5 Hyperlipidemia, unspecified; E03.9 Hypothyroidism, unspecified; R79.89 Other specified abnormal findings of blood chemistry; D69.6 Thrombocytopenia, unspecified; Z99.81 Dependence on supplemental oxygen; Z79.84 Long term (current) use of oral hypoglycemic drugs; Z86.73 Personal history of transient ischemic attack (TIA), and cerebral infarction without residual deficits; Z72.0 Tobacco use; Z66 Do not resuscitate
CPT/HCPCS: 0241U; 36415; 36600; 71045; 71275; 80048; 80053; 81001; 82550; 82805; 82962; 83036; 83605; 83690; 83735; 83880; 84443; 84484; 85025; 85027; 85610; 85730; 87040; 87797; 93005; 93010; 93306; 94660; 96365; 96367; 96368; 96375; 97110; 97162; 97165; 97530; 97535; 99285; 99291; J0692; J0696; J1650; J1815; J1938; J2865; J2919; J3475; Q9967